=== PATIENT | female | born 1945 | race Caucasian/White ===

== ENCOUNTER 2016-07-26 07:21 | Inpatient (IN) | payer BC ==
--- NOTE | 2016-07-26 07:27 | ER Document Report ---
ED General - General Stated Complaint: DIFFICULTY BREATHING Mode of Arrival: Medic Information source: Patient, Emergency Med Personnel Notes: 62-year-old female smoker history of COPD presents with complaints of shortness of breath over the past one half hours. Patient was found by EMS satting 82% on room air, patient is not on oxygen at home. She was given 3 duo nebs Solu- Medrol on route. Patient notes continued shortness of breath, she is now satting 99% on 2 L nasal cannula with mild respiratory distress TRAVEL OUTSIDE OF THE [place] IN LAST 30 DAYS: No - HPI Onset: Just prior to arrival Onset/Duration: Sudden Quality of pain: No pain Severity: Moderate Pain Level: Denies Associated symptoms: Productive cough, Shortness of breath Exacerbated by: Walking Relieved by: Denies Similar symptoms previously: Yes Recently seen / treated by doctor: Yes - Related Data Allergies/Adverse Reactions: No Known Allergies Allergy (Verified 08/02/13 15:44) Past Medical History - Social History Smoking Status: Current Every Day Smoker Cigarette use (# per day): Yes Chew tobacco use (# tins/day): No Smoking Education Provided: Yes - Patient counselled regarding cessation for 4 minutes Family History: CAD, CVA, DM, Hyperlipidemia, Hypertension, Malignancy, Thyroid Disfunction - Past Medical History Cardiac Medical History: Reports: Hx Hypertension Denies: Hx Coronary Artery Disease, Hx Heart Attack Pulmonary Medical History: Reports: Hx COPD, Hx Pneumonia Denies: Hx Asthma, Hx Bronchitis, Hx Tuberculosis Neurological Medical History: Denies: Hx Cerebrovascular Accident, Hx Seizures Endocrine Medical History: Reports: Hx Diabetes Mellitus Type 2, Hx Hypothyroidism Musculoskeltal Medical History: Reports Hx Arthritis Psychiatric Medical History: Reports: Hx Depression Past Surgical History: Reports: Hx Abdominal Surgery - HERNIA X2, Hx Breast Surgery - lump removal x2, Hx Umbilical Hernia. Denies: Hx Hysterectomy - Immunizations Immunizations up to date: Yes Hx Diphtheria, Pertussis, Tetanus Vaccination: No Hx Pneumococcal Vaccination: 04/03/12 Review of Systems - Review of Systems Notes: REVIEW OF SYSTEMS: CONSTITUTIONAL : Denies fever, chills, or sweats. Denies recent illness. EENT: Denies eye, ear, throat, or mouth pain or symptoms. Denies nasal or sinus congestion or discharge. Denies throat, tongue, or mouth swelling or difficulty swallowing. CARDIOVASCULAR: Denies chest pain. Denies palpitations or racing or irregular heart beat. Denies ankle edema. RESPIRATORY: Admits shortness breath difficulty breathing GASTROINTESTINAL: Denies abdominal pain or distention. Denies nausea, vomiting , or diarrhea. Denies blood in vomitus, stools, or per rectum. Denies black, tarry stools. Denies constipation. GENITOURINARY: Denies difficulty urinating, painful urination, burning, frequency, blood in urine, or discharge. FEMALE GENITOURINARY: Denies vaginal bleeding, heavy or abnormal periods, irregular periods. Denies vaginal discharge or odor. MUSCULOSKELETAL: Denies back or neck pain or stiffness. Denies joint pain or swelling. SKIN: Denies rash, lesions or sores. HEMATOLOGIC : Denies easy bruising or bleeding. LYMPHATIC: Denies swollen, enlarged glands. NEUROLOGICAL: Denies confusion or altered mental status. Denies passing out or loss of consciousness. Denies dizziness or lightheadedness. Denies headache. Denies weakness or paralysis or loss of use of either side. Denies problems with gait or speech. Denies sensory loss, numbness, or tingling. Denies seizures. PSYCHIATRIC: Denies anxiety or stress. Denies depression, suicidal ideation, or homicidal ideation. ALL OTHER SYSTEMS REVIEWED AND NEGATIVE. Dictation was performed using [employer] voice recognition software PHYSICAL EXAMINATION: GENERAL: Well-appearing, well-nourished and in moderate respiratory distress inspiratory retractions intercostal costal retractions HEAD: Atraumatic, normocephalic. EYES: Pupils equal round and reactive to light, extraocular movements intact, conjunctiva are normal. ENT: Nares patent, oropharynx clear without exudates. Moist mucous membranes. NECK: Normal range of motion, supple without lymphadenopathy LUNGS: Decreased breath sounds inspiratory, worse wheezing expiratory moderate respiratory distress HEART: Regular rate and rhythm without murmurs ABDOMEN: Soft, nontender, nondistended abdomen. No guarding, no rebound. No masses appreciated. Female : deferred Musculoskeletal: Normal range of motion, no pitting or edema. No cyanosis. NEUROLOGICAL: Cranial nerves grossly intact. Normal speech, normal gait. Normal sensory, motor exams PSYCH: Normal mood, normal affect. SKIN: Warm, Dry, normal turgor, no rashes or lesions noted. Physical Exam - Vital signs Vitals: Resp Pulse Ox 18 96 07/26/16 07:23 07/26/16 07:23 Course - Re-evaluation Re-evalutation: 07/26/16 07:25 62-year-old female presents in moderate respiratory distress, patient's immediately placed on BiPAP on arrival, she is already received 3 duo nebs however her breathing has not improved significantly, she has never been intubated in the past, I have very low threshold for intubation today 07/26/16 08:53 pt resting well on bipap, paged dr lorenzo 07/26/16 08:56 Patient admitted to primary care physician, no specific source of infection noted - Vital Signs Vital signs: Temp Pulse Resp BP Pulse Ox 16 115/83 96 07/26/16 08:01 07/26/16 08:01 07/26/16 08:01 - Laboratory Result Diagrams: 07/26/16 07:25 07/26/16 07:25 Laboratory results interpreted by me: 07/26/16 07/26/16 07/26/16 07:25 07:25 07:25 MCHC 31.8 L RDW 16.0 H VBG pH Glucose 170 H Lactic Acid 2.7 H AST 50 H 07/26/16 07:39 MCHC RDW VBG pH 7.25 L Glucose Lactic Acid AST - Diagnostic Test Radiology reviewed: Image reviewed, Reports reviewed - copd exacerbation - EKG Interpretation by Me EKG shows normal: Sinus rhythm, [place], Intervals, QRS Complexes [place]/QRS: LA[facility]/LAFB Critical Care Note - Critical Care Note Total time excluding time spent on procedures (mins): 37 Comments: 37 minutes of critical care time spent in direct contact evaluating and reevaluating the patient, treating symptoms, reviewing labs and studies and speaking with family and consultants excluding any procedures Discharge - Discharge Clinical Impression: Chronic obstructive pulmonary disease with acute exacerbation, Hypoxemia Condition: Stable Disposition: ADMITTED INPATIENT Admitting Provider: [facility] Unit Admitted: Telemetry
[2016-07-26 07:47] LABS: ABSOLUTE BASOPHILS # (AUTO) 0.1 10^3/uL (0.0-0.2); ABSOLUTE EOSINOPHILS # (AUTO) 0.5 10^3/uL (0.0-0.6); ABSOLUTE LYMPHOCYTES (AUTO) 1.9 10^3/uL (0.5-4.7); ABSOLUTE MONOCYTES (AUTO) 0.6 10^3/uL (0.1-1.4); ABSOLUTE NEUT (AUTO) 6.6 10^3/uL (1.7-8.2); BASOPHILS % (AUTO) 0.9 % (0-2); EOSINOPHILS % (AUTO) 5.2 % (0-6); LYMPHOCYTES % (AUTO) 19.5 % (13-45); MEAN CORPUSCULAR HGB CONC 31.8 g/dL (32.0-36.0); MEAN CORPUSCULAR VOLUME 85 fl (80-97); MONOCYTES % (AUTO) 5.8 % (3-13); RED BLOOD COUNT 5.17 10^6/uL (3.72-5.28); SEGMENTED NEUTROPHILS % (AUTO) 68.6 % (42-78); WHITE BLOOD COUNT 9.6 10^3/uL (4.0-10.5)
[2016-07-26 07:53] LABS: VENOUS BLOOD HCO3 25.3 mmol/L (20-32); VENOUS BLOOD PCO2 58.9 mmHg (35-63); VENOUS BLOOD PH 7.25 (7.30-7.42)
[2016-07-26 07:53] LABS: PROTHROMBIN TIME 13.1 SEC (11.4-15.4)
[2016-07-26 08:02] LABS: ALBUMIN 3.9 g/dL (3.5-5.0); ALKALINE PHOSPHATASE 86 U/L (38-126); ANION GAP 13 (5-19); ASPARTATE AMINO TRANSFERASE 50 U/L (14-36); BILIRUBIN,TOTAL 0.6 mg/dL (0.2-1.3); BLOOD UREA NITROGEN 13 mg/dL (7-20); CALCIUM 9.5 mg/dL (8.4-10.2); CARBON DIOXIDE 23 mmol/L (22-30); CHLORIDE 106 mmol/L (98-107); CREATININE RESULT 0.76 mg/dL (0.52-1.25); GLUCOSE 170 mg/dL (75-110); POTASSIUM 4.2 mmol/L (3.6-5.0); SODIUM 142.2 mmol/L (137-145)
[2016-07-26] MEDS ORDERED: LEVOFLOXACIN 750 MG/D5W RTU 150 ML IV ONE (08:07)
[2016-07-26] MEDS ORDERED: NORMAL SALINE 1000 ML 1,000 ML IV PRN (08:07)
[2016-07-26 08:26] LABS: ALANINE AMINOTRANSFERASE 47 U/L (9-52)
[2016-07-26] MEDS ORDERED: DEXTROSE 40% GEL 15 GM TUBE PO PRN ×2 (09:02)
[2016-07-26] MEDS ORDERED: GLUCAGON,HUMAN RECOMB 1 MG INJ IM PRN (09:02)
[2016-07-26] MEDS ORDERED: DEXTROSE 50%-WATER 25 GM/50 ML DISP.SYRIN IV PRN ×2 (09:02)
[2016-07-26 09:44] LABS: CREATINE KINASE MB 3.8 ng/mL (<4.55)
[2016-07-26 09:53] LABS: TROPONIN I 0.363 ng/mL
[2016-07-26 11:04] LABS: APPEARANCE,URINE CLEAR; BILIRUBIN,URINE NEGATIVE (NEGATIVE); GLUCOSE, URINE NEGATIVE (NEGATIVE); KETONES,URINE NEGATIVE (NEGATIVE); LEUKOCYTE ESTERASE,URINE NEGATIVE (NEGATIVE); NITRITE,URINE NEGATIVE (NEGATIVE); PROTEIN,URINE 30 mg/dL (NEGATIVE); URINE SPECIFIC GRAVITY 1.012; UROBILINOGEN,URINE NEGATIVE mg/dL (<2.0)
[2016-07-26] MEDS ORDERED: CEFEPIME HCL 2 GM in DEXTROSE 5%-WATER 50 ML IV ONE ×2 (11:45→15:30)
[2016-07-26] MEDS: NICOTINE 21 MG/24 HR PATCH.TD24 TD SCH (15:39)
--- NOTE | 2016-07-26 15:50 | EKG REPORT ---
SEVERITY:- ABNORMAL ECG - SINUS ARRHYTHMIA, RATE 70-106 LAD, CONSIDER LAFB OR INFERIOR INFARCT ANTERIOR INFARCT, AGE INDETERMINATE : Confirmed by: Yaz Sanders 26-Jul-2016 15:49:10
--- NOTE | 2016-07-26 15:50 | EKG REPORT ---
SEVERITY:- ABNORMAL ECG - SINUS RHYTHM VENTRICULAR PREMATURE COMPLEX PROBABLE INFERIOR INFARCT, AGE INDETERMINATE ANTERIOR INFARCT, AGE INDETERMINATE BORDERLINE PROLONGED QT INTERVAL : Confirmed by: Yaz Sanders 26-Jul-2016 15:49:06
[2016-07-26] MEDS ORDERED: INFLUENZA ADLT QUAD (36MOS+) 2016-17 VAC 0.5 ML SYR IM PRN (16:32)
[2016-07-26] MEDS: IPRATROPIUM/ALBUTEROL 0.5-2.5 MG/3 ML AMPUL NEB PRN ×2 (16:39→20:10)
[2016-07-26] MEDS: OXYCODONE HCL IR 5 MG TABLET PO PRN (16:58)
[2016-07-26] MEDS ORDERED: LEVOTHYROXINE SODIUM 0.075 MG TABLET PO ONE (17:00)
[2016-07-26] MEDS: INSULIN LISPRO 100 UNIT/ML 3 ML VIAL SUBCUT PRN ×2 (17:27→23:01)
[2016-07-26 19:25] LABS: CREATINE KINASE MB 8.99 ng/mL (<4.55)
[2016-07-26 19:36] LABS: TROPONIN I 1.15 ng/mL
[2016-07-26] MEDS ORDERED: (PENDING PHARMACY ID) (Tiotropium Bromide [Spiriva Respimat] 1 PUFF) PO PRN (20:59)
[2016-07-26] MEDS ORDERED: NICOTINE 21 MG/24 HR PATCH.TD24 TD SCH (21:00)
[2016-07-26] MEDS ORDERED: RIFAXIMIN 200 MG TABLET PO SCH (21:00)
[2016-07-26] MEDS ORDERED: METOPROLOL SUCCINATE 50 MG TAB.SR.24H PO SCH (21:00)
[2016-07-26] MEDS ORDERED: (PENDING PHARMACY ID) (Losartan/Hydrochlorothiazide [Hyzaar 100-25 Tablet] 1 EACH) PO SCH (21:00)
[2016-07-26] MEDS ORDERED: OXYCODONE HCL IR 5 MG TABLET PO PRN (21:14)
[2016-07-26] MEDS ORDERED: LEVOTHYROXINE SODIUM 0.1 MG TABLET PO ONE (22:00)
[2016-07-26] MEDS ORDERED: CEFEPIME 2 GM/D5W RTU 2 GM/50 ML RTUPB IV SCH (22:00)
[2016-07-26] MEDS ORDERED: LOSARTAN POTASSIUM 50 MG TABLET PO ONE (22:00)
[2016-07-26] MEDS ORDERED: HYDROCHLOROTHIAZIDE 25 MG TABLET PO ONE (22:00)
[2016-07-26 22:24] LABS: ABSOLUTE LYMPHOCYTES (AUTO) 0.6 10^3/uL (0.5-4.7); ABSOLUTE MONOCYTES (AUTO) 0.4 10^3/uL (0.1-1.4); ABSOLUTE NEUT (AUTO) 11.2 10^3/uL (1.7-8.2); BASOPHILS % (AUTO) 0.3 % (0-2); HEMATOCRIT 38.9 % (36.0-47.0); HEMOGLOBIN 12.5 g/dL (12.0-15.5); HGB HCT DIFFERENCE -1.4; LYMPHOCYTES % (AUTO) 5.1 % (13-45); MEAN CORPUSCULAR HEMOGLOBIN 27.1 pg (27.0-33.4); MEAN CORPUSCULAR HGB CONC 32.1 g/dL (32.0-36.0); MEAN CORPUSCULAR VOLUME 84 fl (80-97); PROTHROMBIN TIME 13.6 SEC (11.4-15.4); RED BLOOD COUNT 4.62 10^6/uL (3.72-5.28); RED CELL DISTRIBUTION WIDTH 16.2 % (11.5-14.0); SEGMENTED NEUTROPHILS % (AUTO) 91.6 % (42-78); WHITE BLOOD COUNT 12.2 10^3/uL (4.0-10.5)
[2016-07-26 22:25] LABS: PARTIAL THROMBOPLASTIN TIME 26.9 SEC (23.5-35.8)
[2016-07-26] MEDS ORDERED: NICOTINE 21 MG/24 HR PATCH.TD24 TD ONE (22:30)
[2016-07-26] MEDS ORDERED: DULOXETINE HCL 30 MG CAPSULE.DR PO ONE (22:30)
[2016-07-26] MEDS ORDERED: METOPROLOL SUCCINATE 50 MG TAB.SR.24H PO ONE (22:30)
[2016-07-26] MEDS ORDERED: LANSOPRAZOLE 30 MG TAB.RAP.DR PO ONE (22:30)
[2016-07-26] MEDS ORDERED: ALBUTEROL SULFATE HFA (90 MCG/PUFF) 200 PUFF/8.5 GM MDI IH PRN (22:45)
[2016-07-26] MEDS ORDERED: METFORMIN HCL 500 MG TABLET PO ONE (23:00)
[2016-07-26] MEDS: CEFEPIME HCL 2 GM in DEXTROSE 5%-WATER 50 ML IV SCH (23:03)
[2016-07-26] MEDS: RIFAXIMIN 550 MG TABLET PO SCH (23:04)
--- NOTE | 2016-07-26 23:57 | EKG REPORT ---
SEVERITY:- ABNORMAL ECG - SINUS TACHYCARDIA FIRST DEGREE AV BLOCK LEFT ANTERIOR FASCICULAR BLOCK ANTERIOR INFARCT, AGE INDETERMINATE DIFFUSE T WAVE INVERSION : Confirmed by: Yaz Sanders 26-Jul-2016 23:56:25
[2016-07-27] MEDS: HEPARIN SOD (PORCINE) 1,000 UNIT/ML 10 ML VIAL IV PRN ×2 (00:02→11:58)
[2016-07-27] MEDS: HEPARIN SODIUM,PORCINE/D5W 250 ML IV PRN ×2 (00:05→20:45)
[2016-07-27 03:12] LABS: ABSOLUTE BASOPHILS # (AUTO) 0.1 10^3/uL (0.0-0.2); ABSOLUTE LYMPHOCYTES (AUTO) 1.3 10^3/uL (0.5-4.7); BASOPHILS % (AUTO) 0.5 % (0-2); EOSINOPHILS % (AUTO) 0.1 % (0-6); HEMATOCRIT 37.7 % (36.0-47.0); HEMOGLOBIN 11.9 g/dL (12.0-15.5); LYMPHOCYTES % (AUTO) 7.7 % (13-45); MEAN CORPUSCULAR HEMOGLOBIN 26.6 pg (27.0-33.4); MEAN CORPUSCULAR HGB CONC 31.7 g/dL (32.0-36.0); MEAN CORPUSCULAR VOLUME 84 fl (80-97); MONOCYTES % (AUTO) 6.1 % (3-13); RED BLOOD COUNT 4.48 10^6/uL (3.72-5.28); SEGMENTED NEUTROPHILS % (AUTO) 85.6 % (42-78); WHITE BLOOD COUNT 16.3 10^3/uL (4.0-10.5)
[2016-07-27 03:20] LABS: ANION GAP 9 (5-19); BLOOD UREA NITROGEN 21 mg/dL (7-20); CALCIUM 9.5 mg/dL (8.4-10.2); CARBON DIOXIDE 26 mmol/L (22-30); CHLORIDE 107 mmol/L (98-107); CREATININE RESULT 0.71 mg/dL (0.52-1.25); GLUCOSE 149 mg/dL (75-110); POTASSIUM 4.1 mmol/L (3.6-5.0); SODIUM 142.1 mmol/L (137-145)
[2016-07-27 03:32] LABS: CREATINE KINASE MB 10.2 ng/mL (<4.55); TROPONIN I 1.2 ng/mL
[2016-07-27] MEDS: IPRATROPIUM/ALBUTEROL 0.5-2.5 MG/3 ML AMPUL NEB PRN ×4 (05:42→22:21)
[2016-07-27] MEDS: LEVOTHYROXINE SODIUM 0.1 MG TABLET PO SCH (06:19)
[2016-07-27] MEDS: LANSOPRAZOLE 30 MG TAB.RAP.DR PO SCH (06:19)
[2016-07-27] MEDS ORDERED: ENOXAPARIN SODIUM INJ 40 MG/0.4 ML DISP.SYRIN SUBCUT SCH (08:00)
[2016-07-27] MEDS: GLIMEPIRIDE 4 MG TABLET PO SCH (08:21)
[2016-07-27] MEDS: METFORMIN HCL 500 MG TABLET PO SCH ×2 (08:21→17:55)
[2016-07-27] MEDS: LEVOFLOXACIN 500 MG/D5W RTU 500 MG/100 ML RTUPB IV SCH (08:22)
[2016-07-27] MEDS: OXYCODONE HCL IR 5 MG TABLET PO PRN (08:30)
[2016-07-27] MEDS ORDERED: NICOTINE 21 MG/24 HR PATCH.TD24 TD SCH (10:00)
[2016-07-27] MEDS ORDERED: LEVOTHYROXINE SODIUM 0.075 MG TABLET PO SCH (10:00)
[2016-07-27] MEDS ORDERED: OXYCODONE HCL IR 5 MG TABLET PO PRN (10:14)
[2016-07-27 10:50] LABS: CREATINE KINASE MB 10.3 ng/mL (<4.55)
[2016-07-27] MEDS: DULOXETINE HCL 30 MG CAPSULE.DR PO SCH (10:54)
[2016-07-27] MEDS: LOSARTAN POTASSIUM 50 MG TABLET PO SCH (10:54)
[2016-07-27] MEDS: HYDROCHLOROTHIAZIDE 25 MG TABLET PO SCH (10:54)
[2016-07-27] MEDS: METOPROLOL SUCCINATE 50 MG TAB.SR.24H PO SCH (10:55)
[2016-07-27] MEDS: CEFEPIME HCL 2 GM in DEXTROSE 5%-WATER 50 ML IV SCH ×2 (10:58→22:22)
[2016-07-27] MEDS: RIFAXIMIN 550 MG TABLET PO SCH ×2 (10:58→22:22)
--- NOTE | 2016-07-27 11:50 | XCELERA REPORT ---
[address] [address] Transthoracic Echocardiogram Report Name: BAIRON FU Age: 70 yrs Gender: Female : 1945 Patient Status: Inpatient Patient Location: [id number]\B Study Date: 07/27/2016 10:49 AM Height: 64 in Weight: 168 lb BSA: 1.8 m2 Procedure: A complete two-dimensional transthoracic echocardiogram was performed (2D, M-mode, spectral and color flow Doppler). The study was technically adequate with some images being suboptimal in quality. Reason For Study: elevated troponin Ordering Physician: ROWENA CLEANING Performed By: Flor Chamberlain Interpretation Summary LV EF is 35% Doppler measurements suggest pseudonormalized left ventricular relaxation, which is associated with grade II/IV or mild to moderate diastolic dysfunction There is mild concentric left ventricular hypertrophy. The left ventricle is grossly normal size. There is mid to distal anterior wall akinesis There is apical wall akinesis The right ventricle is grossly normal size. The right ventricular systolic function is normal. The left atrium is mildly dilated. The right atrium is normal in size There is a mild amount of mitral regurgitation There is no mitral valve stenosis. No aortic regurgitation is present. There is no aortic valve stenosis There is a trace to mild amount of tricuspid regurgitation There is mild pulmonary hypertension by echo Right ventricular systolic pressure is estimated to be elevated at 30- 40mmHg. There is no pericardial effusion. MMode/2D Measurements \T\ Calculations RVDd: 2.9 cm LVIDd: 4.4 cm FS: 17.3 % Ao root diam: IVSd: 1.4 cm LVIDs: 3.6 cm EDV(Teich): 2.9 cm LVPWd: 1.3 cm 86.0 ml Ao root area: ESV(Teich): 54.7 ml 6.4 cm2 EF(Teich): 36.4 %LA dimension: 4.0 cm LVLd ap4: 6.6 cm SV(MOD-sp4): EDV(MOD-sp4): 21.0 ml 57.0 ml LVLs ap4: 6.4 cm ESV(MOD-sp4): 36.0 ml EF(MOD-sp4): 36.8 % Doppler Measurements \T\ Calculations MV E max lily: MV P1/2t max lily: Ao V2 max: LV V1 max P.0 cm/sec 78.5 cm/sec 100.4 cm/sec 3.3 mmHg MV A max lily: MV P1/2t: 70.4 msec Ao max PG: LV V1 max: 76.5 cm/sec MVA(P1/2t): 3.1 cm2 4.0 mmHg 91.3 cm/sec MV E/A: 1.0 MV dec slope: 326.4 cm/sec2 MV dec time: 0.23 sec PA V2 max: TR max lily: 64.7 cm/sec 215.0 cm/sec PA max PG: TR max P.5 mmHg 1.7 mmHg Left Ventricle The left ventricle is grossly normal size. There is mild concentric left ventricular hypertrophy. LV EF is 35%. Doppler measurements suggest pseudonormalized left ventricular relaxation, which is associated with grade II/IV or mild to moderate diastolic dysfunction. There is mid to distal anterior wall akinesis. There is apical wall akinesis. Right Ventricle The right ventricle is grossly normal size. There is normal right ventricular wall thickness. The right ventricular systolic function is normal. Atria The right atrium is normal in size. The left atrium is mildly dilated. Interarterial septum not well visualized and not well dopplered. Cannot comment on ASD/PFO presence. Mitral Valve There is mild to moderate mitral annular calcification. There is no mitral valve stenosis. There is a mild amount of mitral regurgitation. Aortic Valve The aortic valve is grossly normal. There is no aortic valve stenosis. No aortic regurgitation is present. Tricuspid Valve The tricuspid valve is not well visualized, but is grossly normal. There is no tricuspid stenosis. There is a trace to mild amount of tricuspid regurgitation. There is mild pulmonary hypertension by echo. Right ventricular systolic pressure is estimated to be elevated at 30-40mmHg. Pulmonic Valve The pulmonic valve is not well visualized. Great Vessels The aortic root is not well visualized but is probably normal size. The inferior vena cava appeared normal and decreased < 50% with respiration (RAP 10-15 mmHg). Effusions There is no pericardial effusion. : ROWENA CLEANING > Yaz Sanders
[2016-07-27] MEDS: NICOTINE 21 MG/24 HR PATCH.TD24 TD SCH (15:02)
[2016-07-27] MEDS ORDERED: ONDANSETRON 4 MG TAB.RAPDIS PO PRN (15:46)
--- NOTE | 2016-07-27 18:49 | PDOC H&P ---
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 In the emergency room she was evaluated and admission was advised. The initial impression was that she probably have COPD versus pneumonia. The 12-lead EKG that was done showed sinus rhythm with Q waves in V1 to V3, Q wave in lead 2 and aVF. EKG findings suggest old myocardial infarction. CT chest was done without contrast and it showed hyperinflated upper lobes and hyperlucent, COPD, there was no pulmonary edema or pneumonia present. On admission on the initial troponin was 0.30 subsequent troponin was 1 suggesting that she probably had ST elevated AK and because of this, she was started on IV heparin Past Medical History Cardiac Medical History: Reports: Atrial Fibrillation, Hyperlipidema, Hypertension Pulmonary Medical History: Reports: Chronic Obstructive Pulmonary Disease (COPD) , Pneumonia Endocrine Medical History: Reports: Diabetes Mellitus Type 2, Hypothyroidism GI Medical History: Reports: Other - well compensated liver cirrhosis Musculoskeltal Medical History: Reports: Arthritis Psychiatric Medical History: Reports: Depression Social History Smoking Status: Current Every Day Smoker Cigarettes Packs Per Day: 1 Number of Years Smokin Last Time Smoked: today Frequency of Alcohol Use: None Hx Recreational Drug Use: No Drugs: None Hx Prescription Drug Abuse: No - Advance Directive Resuscitation Status: Full Code Family History Family History: CAD, CVA, DM, Hyperlipidemia, Hypertension, Malignancy, Thyroid Disfunction Parental Family History Reviewed: Yes Children Family History Reviewed: Yes Sibling(s) Family History Reviewed.: Yes Medication/Allergy Home Medications: Albuterol Sulfate [Proair HFA] 2 inh PO Q4HP PRN 07/26/16 Butalb/Acetaminophen/Caffeine [Fioricet 50-300-40 mg Capsule] 1 cap PO Q6HP PRN 07/26/16 Dexlansoprazole [Dexilant 60 mg Capsule] 60 mg PO DAILY 07/26/16 Duloxetine HCl [Cymbalta] 60 mg PO DAILY 07/26/16 Fluticasone/Salmeterol [Advair 250-50 Diskus 28 dose] 1 inh PO DAILY 07/26/16 Glimepiride [Amaryl 4 mg Tablet] 4 mg PO QAM 07/26/16 Insulin Aspart [Novolog Flexpen] 5 units SQ TID 07/26/16 Levothyroxine Sodium 25 mcg PO DAILY 07/26/16 Levothyroxine Sodium [Synthroid] 200 mcg PO DAILY 07/26/16 Losartan/Hydrochlorothiazide [Hyzaar 100-25 Tablet] 1 each PO DAILY 07/26/16 Metformin HCl [Glucophage] 1,000 mg PO BID 07/26/16 Metoprolol Succinate 50 mg PO DAILY 07/26/16 Nicotine [Nicoderm 21 mg/24 Hr Transderm Patch] 21 mg TD DAILY 07/26/16 Oxycodone HCl [Oxycodone HCl 10 MG Tablet] 10 mg PO QIDP PRN 07/26/16 Rifaximin [Xifaxan] 550 mg PO BID 07/26/16 Roflumilast [Daliresp 500 mcg Tablet] 500 mcg PO DAILY 07/26/16 Tiotropium [place] [Spiriva Respimat] 1 puff PO ASDIR PRN 07/26/16 Zolpidem Tartrate 5 mg PO QHS 07/26/16 Allergies/Adverse Reactions: No Known Allergies Allergy (Verified 08/02/13 15:44) Review of Systems Constitutional: PRESENT: fatigue Ears: ABSENT: hearing changes Cardiovascular: PRESENT: chest pain, dyspnea on exertion Respiratory: PRESENT: cough Gastrointestinal: PRESENT: abdominal pain Genitourinary: ABSENT: as per HPI, difficulty urinating, dysuria, hematuria, nocturia, other Musculoskeletal: ABSENT: joint swelling Integumentary: ABSENT: rash, wounds Neurological: ABSENT: abnormal gait, abnormal speech, confusion, dizziness, focal weakness, syncope Psychiatric: ABSENT: anxiety, depression, homidical ideation, suicidal ideation Endocrine: ABSENT: cold intolerance, heat intolerance, menstrual abnormalities, polydipsia, polyuria Hematologic/Lymphatic: ABSENT: easy bleeding, easy bruising, lymphadenopathy Physical Exam Vital Signs: Temp Pulse Resp BP Pulse Ox 97.9 F 66 24 H 116/64 100 07/27/16 15:49 07/27/16 15:49 07/27/16 15:49 07/27/16 15:49 07/27/16 15:49 Intake & Output 07/26/16 07/27/16 07/28/16 06:59 06:59 06:59 Intake Total 800 658 Balance 800 658 Weight 79.1 kg General appearance: PRESENT: no acute distress, well-developed, well-nourished Head exam: PRESENT: atraumatic, normocephalic Eye exam: PRESENT: conjunctiva pink, EOMI, PERRLA Ear exam: PRESENT: normal external ear exam Neck exam: PRESENT: full ROM Respiratory exam: PRESENT: rhonchi, wheezes Cardiovascular exam: PRESENT: RRR, +S1, +S2 Pulses: PRESENT: normal dorsalis pedis pul, +2 pedal pulses bilateral Vascular exam: PRESENT: normal capillary refill GI/Abdominal exam: PRESENT: normal bowel sounds, soft Rectal exam: PRESENT: deferred Neurological exam: PRESENT: alert, awake, oriented to person, oriented to place , oriented to time, oriented to situation, CN II-XII grossly intact. ABSENT: motor sensory deficit Psychiatric exam: PRESENT: appropriate affect, normal mood Skin exam: PRESENT: dry, intact, warm Results Laboratory Results: 07/27/16 03:00 07/27/16 03:00 07/26/16 07/27/16 07/27/16 21:52 03:00 03:00 WBC 12.2 H 16.3 H RBC 4.62 4.48 Hgb 12.5 11.9 L Hct 38.9 37.7 MCV 84 84 MCH 27.1 26.6 L MCHC 32.1 31.7 L RDW 16.2 H 16.0 H Plt Count 207 198 Seg Neutrophils % 91.6 H 85.6 H Lymphocytes % 5.1 L 7.7 L Monocytes % 3.0 6.1 Eosinophils % 0.0 0.1 Basophils % 0.3 0.5 Absolute Neutrophils 11.2 H 14.0 H Absolute Lymphocytes 0.6 1.3 Absolute Monocytes 0.4 1.0 Absolute Eosinophils 0.0 0.0 Absolute Basophils 0.0 0.1 Sodium 142.1 Potassium 4.1 Chloride 107 Carbon Dioxide 26 Anion Gap 9 BUN 21 H Creatinine 0.71 Est GFR ( Amer) > 60 Est GFR (Non-Af Amer) > 60 Glucose 149 H Calcium 9.5 07/26/16 10:35 Clean Catch Midstream Urine Culture - Final Urogenital Michelle Lactobacillus (Vaginal Michelle) 07/26/16 07/26/16 07/27/16 18:50 18:50 03:00 Creatine Kinase 829 H 586 H CK-MB (CK-2) 8.99 H Troponin I 1.150 07/27/16 07/27/16 07/27/16 03:00 09:56 09:56 Creatine Kinase 412 H CK-MB (CK-2) 10.20 H 10.30 H Troponin I 1.200 1.000 Impressions: Chest CT 07/26/16 00:00 IMPRESSION: Obstructive lung disease. No acute changes. Chest X-Ray 07/26/16 07:23 IMPRESSION: Fluid overload or congestive failure superimposed on obstructive lung disease Esophagus X-Ray 07/27/16 08:00 IMPRESSION: Tiny hiatal hernia. No distal esophageal stricture. No gastroesophageal reflux. Assessment & Plan - Diagnosis (1) Acute myocardial infarction Qualifiers: Myocardial infarction ST status: ST elevation myocardial infarction Involved coronary artery: unspecified coronary artery Qualified Code(s): I21.3 - ST elevation (STEMI) myocardial infarction of unspecified site Is this a current diagnosis for this admission?: YesPlan: She probably had ST elevated myocardial infarction, but she is already Q , so this late she be started on IV heparin , 2-D echo will be ordered. Continue beta esmer,aspirin,ACEI statin (2) Pneumonia Qualifiers: Pneumonia type: due to unspecified organism Laterality: unspecified laterality Lung location: unspecified part of lung Qualified Code(s) : J18.9 - Pneumonia, unspecified organism Is this a current diagnosis for this admission?: Yes
[2016-07-27] MEDS ORDERED: ATORVASTATIN CALCIUM 80 MG TABLET PO ONE (19:20)
[2016-07-27] MEDS ORDERED: ASPIRIN 325 MG TABLET PO ONE (19:21)
--- NOTE | 2016-07-27 20:16 | PDOC TRANSFER SUMMARY ---
General Admission Date/PCP: 07/26/16 08:59 [employer], Admission Date: 07/26/16 Transfer Date: 07/27/16 Accepting Facility: [facility] Resuscitation Status: Full Code - Transfer Diagnosis (1) ST elevation (STEMI) myocardial infarction Is this a current diagnosis for this admission?: Yes (2) COPD (chronic obstructive pulmonary disease) Is this a current diagnosis for this admission?: Yes - Transfer Medications Home Medications: Albuterol Sulfate [Proair HFA] 2 inh PO Q4HP PRN 07/26/16 Butalb/Acetaminophen/Caffeine [Fioricet 50-300-40 mg Capsule] 1 cap PO Q6HP PRN 07/26/16 Dexlansoprazole [Dexilant 60 mg Capsule] 60 mg PO DAILY 07/26/16 Duloxetine HCl [Cymbalta] 60 mg PO DAILY 07/26/16 Fluticasone/Salmeterol [Advair 250-50 Diskus 28 dose] 1 inh PO DAILY 07/26/16 Glimepiride [Amaryl 4 mg Tablet] 4 mg PO QAM 07/26/16 Insulin Aspart [Novolog Flexpen] 5 units SQ TID 07/26/16 Levothyroxine Sodium 25 mcg PO DAILY 07/26/16 Levothyroxine Sodium [Synthroid] 200 mcg PO DAILY 07/26/16 Losartan/Hydrochlorothiazide [Hyzaar 100-25 Tablet] 1 each PO DAILY 07/26/16 Metformin HCl [Glucophage] 1,000 mg PO BID 07/26/16 Metoprolol Succinate 50 mg PO DAILY 07/26/16 Nicotine [Nicoderm 21 mg/24 Hr Transderm Patch] 21 mg TD DAILY 07/26/16 Oxycodone HCl [Oxycodone HCl 10 MG Tablet] 10 mg PO QIDP PRN 07/26/16 Rifaximin [Xifaxan] 550 mg PO BID 07/26/16 Roflumilast [Daliresp 500 mcg Tablet] 500 mcg PO DAILY 07/26/16 Tiotropium [place] [Spiriva Respimat] 1 puff PO ASDIR PRN 07/26/16 Zolpidem Tartrate 5 mg PO QHS 07/26/16 Transfer Medications: Current Medications Albuterol (Proair Hfa Inhalation Aerosol 8.5 Gm Mdi) 2 puff IH Q4HP PRN PRN Reason: SHORTNESS OF BREATH Stop: 08/25/16 22:44 Albuterol/Ipratropium (Duoneb 3 Ml Ampul) 3 ml NEB RTQ3HP PRN PRN Reason: SHORTNESS OF BREATH/WHEEZING Stop: 08/25/16 08:58 Last Admin: 07/27/16 17:40 Dose: 3 ml Dextrose (Dextrose Inj 50% Syringe (25 Gm/50 Ml)) 12.5 gm IV PRN PRN; Protocol PRN Reason: FOR BG 50-69 IN ALERT PATIENT Stop: 08/25/16 09:01 Dextrose (Dextrose Inj 50% Syringe (25 Gm/50 Ml)) 25 gm IV PRN PRN PRN Reason: Protocol Stop: 08/25/16 09:01 Duloxetine HCl (Cymbalta 30 Mg Capsule.Dr) 60 mg PO DAILY [facility] Stop: 08/26/16 09:59 Last Admin: 07/27/16 10:54 Dose: 60 mg Glimepiride (Amaryl 4 Mg Tablet) 4 mg PO QAM [facility] Stop: 08/26/16 07:59 Last Admin: 07/27/16 08:21 Dose: 4 mg Glucagon (Glucagen Inj 1 Mg Vial) 1 mg IM PRN PRN; Protocol PRN Reason: Evaluate for BG < 70 Stop: 08/25/16 09:01 Glucose (Glutose 40% Gel 15 Gm Tube) 15 gm PO PRN PRN; Protocol PRN Reason: FOR BG 50-69 IN ALERT PATIENT Stop: 08/25/16 09:01 Glucose (Glutose 40% Gel 15 Gm Tube) 30 gm PO PRN PRN; Protocol PRN Reason: FOR BG < 50 IN ALERT PATIENT Stop: 08/25/16 09:01 Heparin Sodium (Porcine) (Heparin Inj 1,000 Unit/Ml 10 Ml Vial) 0 - 12,000 unit IV .BOLUS PER PROTOCOL PRN; Protocol PRN Reason: RESPOND TO aPTT VALUE Stop: 08/25/16 21:01 Last Admin: 07/27/16 11:58 Dose: 4,000 unit Hydrochlorothiazide (Hydrodiuril 25 Mg Tablet) 25 mg PO DAILY [facility] Stop: 08/26/16 09:59 Last Admin: 07/27/16 10:54 Dose: 25 mg Levofloxacin/Dextrose (Levaquin Rtu 500mg/D5w 100 Ml Premix) 500 mg in 100 mls @ 100 mls/hr IV QAM [facility] Stop: 08/03/16 07:59 Last Admin: 07/27/16 08:22 Dose: 100 ml Cefepime HCl 2 gm/ Dextrose 50 mls @ 100 mls/hr IV Q12 [facility] Stop: 08/02/16 21:59 Last Admin: 07/27/16 10:58 Dose: 2 gm Heparin Sodium/Dextrose (Heparin Rtu 25,000 Unit/250 Ml D5w Premix) 250 mls @ 0 mls/hr IV CONTINUOUS PRN; Protocol; Titrate PRN Reason: THIS MED IS NOT "PRN" Stop: 08/25/16 21:01 Last Admin: 07/27/16 00:05 Dose: 250 ml Influenza Virus Vaccine Quadrival (Fluzone Adlt Quad [id number] Vac 0.5 Ml Syr) 0.5 ml IM .AT DISCHARGE PRN PRN Reason: THIS MED IS NOT "PRN" Stop: 08/25/16 16:31 Insulin Human Lispro (Humalog Insulin 100 Unit/1 Ml 3 Ml Vial) 0 - 12 unit SUBCUT ACHSP PRN PRN Reason: Protocol Stop: 08/25/16 09:01 Last Admin: 07/26/16 23:01 Dose: 2 unit Lansoprazole (Prevacid 30 Mg Odt Tablet) 30 mg PO Q6AM [facility] Stop: 08/26/16 05:59 Last Admin: 07/27/16 06:19 Dose: 30 mg Levothyroxine Sodium (Synthroid 0.1 Mg Tablet) 0.2 mg PO Q6AM [facility] Stop: 08/26/16 05:59 Last Admin: 07/27/16 06:19 Dose: 0.2 mg Losartan Potassium (Cozaar 50 Mg Tablet) 100 mg PO DAILY [facility] Stop: 08/26/16 09:59 Last Admin: 07/27/16 10:54 Dose: 100 mg Metformin HCl (Glucophage 500 Mg Tablet) 1,000 mg PO BIDBS [facility] Stop: 08/26/16 07:59 Last Admin: 07/27/16 17:55 Dose: Not Given Metoprolol Succinate (Toprol Xl 50 Mg Tab.Sr) 50 mg PO DAILY [facility] Stop: 08/26/16 09:59 Last Admin: 07/27/16 10:55 Dose: 50 mg Nicotine (Nicoderm 21 Mg/24 Hr Transderm Patch) 1 each TD DAILY@1500 [facility] Stop: 08/25/16 14:59 Last Admin: 07/27/16 15:02 Dose: 1 each Ondansetron HCl (Zofran Odt 4 Mg Tablet) 4 mg PO Q4HP PRN PRN Reason: FOR NAUSEA Stop: 08/26/16 15:45 Last Admin: 07/27/16 16:24 Dose: 4 mg Oxycodone HCl (Oxy-Ir 5 Mg Tablet) 10 mg PO QIDP PRN PRN Reason: PAIN SCALE OF 1 Stop: 08/02/16 21:13 Last Admin: 07/27/16 10:57 Dose: 10 mg Patient Own Medication (Tiotropium [place] [Spiriva Respimat]) 1 puff PO ASDIR PRN Rifaximin (Xifaxan 550 Mg Tablet) 550 mg PO Q12 [facility] Stop: 08/02/16 21:59 Last Admin: 07/27/16 10:58 Dose: 550 mg Sodium Chloride (Saline Flush 2.5 Ml Monoject Prefil Syrin) 2.5 ml IV Q8 [facility] Stop: 08/25/16 13:59 Last Admin: 07/27/16 14:54 Dose: Not Given - Allergies Allergies/Adverse Reactions: No Known Allergies Allergy (Verified 08/02/13 15:44) Hospital Course Hospital Course: Patient was admitted yesterday when she presented with respiratory symptoms including shortness of breath and chest tightness. Initially it was felt that she may have acute COPD exacerbation, that was hypoxemia because the oxygen saturation was in the low 80s on pulse oximetry. Subsequent evaluation suggest she probably had ST elevated MA. The initial troponin was 0.3 and it peaked at 1.2. The 12-lead EKG showed Q-wave in precordial leads V1 through V3 and T- wave in inferior leads,111 aVF. She is probably presenting the late phase of acute ST elevated MA. She was started on IV heparin and she is on beta esmer , atorvastatin, aspirin. A 2-D echo was done it showed EF 35%. There is anterior wall akinesis with apical wall akinesis. The plan is to transfer patient to tertiary care for cardiac catheterization Physical Exam Vital Signs: Temp Pulse Resp BP Pulse Ox 98.4 F 56 L 18 96/62 L 100 07/27/16 19:42 07/27/16 19:42 07/27/16 19:42 07/27/16 19:42 07/27/16 19:42 Intake & Output 07/26/16 07/27/16 07/28/16 06:59 06:59 06:59 Intake Total 800 1360 Output Total 450 Balance 800 910 Weight 79.1 kg General appearance: PRESENT: no acute distress Respiratory exam: PRESENT: rales Cardiovascular exam: PRESENT: +S1, +S2 GI/Abdominal exam: PRESENT: soft Neurological exam: PRESENT: alert, CN II-XII grossly intact Results Laboratory Results: 07/27/16 03:00 07/27/16 03:00 07/26/16 07/27/16 07/27/16 21:52 03:00 03:00 WBC 12.2 H 16.3 H RBC 4.62 4.48 Hgb 12.5 11.9 L Hct 38.9 37.7 MCV 84 84 MCH 27.1 26.6 L MCHC 32.1 31.7 L RDW 16.2 H 16.0 H Plt Count 207 198 Seg Neutrophils % 91.6 H 85.6 H Lymphocytes % 5.1 L 7.7 L Monocytes % 3.0 6.1 Eosinophils % 0.0 0.1 Basophils % 0.3 0.5 Absolute Neutrophils 11.2 H 14.0 H Absolute Lymphocytes 0.6 1.3 Absolute Monocytes 0.4 1.0 Absolute Eosinophils 0.0 0.0 Absolute Basophils 0.0 0.1 Sodium 142.1 Potassium 4.1 Chloride 107 Carbon Dioxide 26 Anion Gap 9 BUN 21 H Creatinine 0.71 Est GFR ( Amer) > 60 Est GFR (Non-Af Amer) > 60 Glucose 149 H Calcium 9.5 07/26/16 10:35 Clean Catch Midstream Urine Culture - Final Urogenital Michelle Lactobacillus (Vaginal Michelle) 07/26/16 07/26/16 07/27/16 18:50 18:50 03:00 Creatine Kinase 829 H 586 H CK-MB (CK-2) 8.99 H Troponin I 1.150 NT-Pro-B Natriuret Pep 07/27/16 07/27/16 07/27/16 03:00 09:56 09:56 Creatine Kinase 412 H CK-MB (CK-2) 10.20 H 10.30 H Troponin I 1.200 1.000 NT-Pro-B Natriuret Pep 07/27/16 09:56 Creatine Kinase CK-MB (CK-2) Troponin I NT-Pro-B Natriuret Pep 4670 H Impressions: Chest CT 07/26/16 00:00 IMPRESSION: Obstructive lung disease. No acute changes. Chest X-Ray 07/26/16 07:23 IMPRESSION: Fluid overload or congestive failure superimposed on obstructive lung disease Esophagus X-Ray 07/27/16 08:00 IMPRESSION: Tiny hiatal hernia. No distal esophageal stricture. No gastroesophageal reflux.
[2016-07-27] MEDS: ATORVASTATIN CALCIUM 80 MG TABLET PO SCH (22:16)
[2016-07-28] MEDS: LEVOTHYROXINE SODIUM 0.1 MG TABLET PO SCH (05:43)
[2016-07-28] MEDS: LANSOPRAZOLE 30 MG TAB.RAP.DR PO SCH (05:43)
[2016-07-28] MEDS: IPRATROPIUM/ALBUTEROL 0.5-2.5 MG/3 ML AMPUL NEB PRN ×3 (06:36→21:00)
[2016-07-28 06:38] LABS: HEMATOCRIT 36.5 % (36.0-47.0); HEMOGLOBIN 11.6 g/dL (12.0-15.5); HGB HCT DIFFERENCE -1.7; MEAN CORPUSCULAR HEMOGLOBIN 27.1 pg (27.0-33.4); MEAN CORPUSCULAR HGB CONC 31.9 g/dL (32.0-36.0); MEAN CORPUSCULAR VOLUME 85 fl (80-97); RED CELL DISTRIBUTION WIDTH 16.4 % (11.5-14.0); WHITE BLOOD COUNT 13.5 10^3/uL (4.0-10.5)
[2016-07-28 06:55] LABS: ANION GAP 8 (5-19); BLOOD UREA NITROGEN 21 mg/dL (7-20); CALCIUM 9.3 mg/dL (8.4-10.2); CARBON DIOXIDE 29 mmol/L (22-30); CHLORIDE 102 mmol/L (98-107); CREATININE RESULT 0.78 mg/dL (0.52-1.25); GLUCOSE 84 mg/dL (75-110); POTASSIUM 4.6 mmol/L (3.6-5.0)
[2016-07-28] MEDS: METFORMIN HCL 500 MG TABLET PO SCH ×2 (09:30→18:16)
[2016-07-28] MEDS: LOSARTAN POTASSIUM 50 MG TABLET PO SCH (09:30)
[2016-07-28] MEDS: METOPROLOL SUCCINATE 50 MG TAB.SR.24H PO SCH (09:31)
[2016-07-28] MEDS: GLIMEPIRIDE 4 MG TABLET PO SCH (09:31)
[2016-07-28] MEDS: DULOXETINE HCL 30 MG CAPSULE.DR PO SCH (09:31)
[2016-07-28] MEDS: HYDROCHLOROTHIAZIDE 25 MG TABLET PO SCH (09:32)
[2016-07-28] MEDS: LEVOFLOXACIN 500 MG/D5W RTU 500 MG/100 ML RTUPB IV SCH (09:32)
[2016-07-28] MEDS: CEFEPIME HCL 2 GM in DEXTROSE 5%-WATER 50 ML IV SCH ×2 (09:33→22:01)
[2016-07-28] MEDS: RIFAXIMIN 550 MG TABLET PO SCH ×2 (09:33→22:00)
[2016-07-28 14:47] LABS: APPEARANCE,URINE CLEAR; BILIRUBIN,URINE NEGATIVE (NEGATIVE); GLUCOSE, URINE NEGATIVE (NEGATIVE); KETONES,URINE NEGATIVE (NEGATIVE); LEUKOCYTE ESTERASE,URINE NEGATIVE (NEGATIVE); NITRITE,URINE NEGATIVE (NEGATIVE); PROTEIN,URINE NEGATIVE (NEGATIVE); URINE SPECIFIC GRAVITY 1.021; UROBILINOGEN,URINE NEGATIVE mg/dL (<2.0)
[2016-07-28] MEDS: NICOTINE 21 MG/24 HR PATCH.TD24 TD SCH (18:16)
[2016-07-28] MEDS: ATORVASTATIN CALCIUM 80 MG TABLET PO SCH (22:00)
[2016-07-28] MEDS: HEPARIN SODIUM,PORCINE/D5W 250 ML IV PRN (22:02)
[2016-07-29] MEDS: IPRATROPIUM/ALBUTEROL 0.5-2.5 MG/3 ML AMPUL NEB PRN ×2 (05:45→08:58)
[2016-07-29 05:58] LABS: ABSOLUTE BASOPHILS # (AUTO) 0.1 10^3/uL (0.0-0.2); ABSOLUTE EOSINOPHILS # (AUTO) 0.3 10^3/uL (0.0-0.6); ABSOLUTE LYMPHOCYTES (AUTO) 1.7 10^3/uL (0.5-4.7); ABSOLUTE MONOCYTES (AUTO) 0.6 10^3/uL (0.1-1.4); ABSOLUTE NEUT (AUTO) 6.8 10^3/uL (1.7-8.2); BASOPHILS % (AUTO) 0.8 % (0-2); EOSINOPHILS % (AUTO) 3.1 % (0-6); HEMATOCRIT 34.3 % (36.0-47.0); HEMOGLOBIN 11.3 g/dL (12.0-15.5); HGB HCT DIFFERENCE -0.4; LYMPHOCYTES % (AUTO) 17.9 % (13-45); MEAN CORPUSCULAR HEMOGLOBIN 27.7 pg (27.0-33.4); MEAN CORPUSCULAR HGB CONC 32.8 g/dL (32.0-36.0); MEAN CORPUSCULAR VOLUME 85 fl (80-97); MONOCYTES % (AUTO) 6.6 % (3-13); RED BLOOD COUNT 4.06 10^6/uL (3.72-5.28); RED CELL DISTRIBUTION WIDTH 16.1 % (11.5-14.0); SEGMENTED NEUTROPHILS % (AUTO) 71.6 % (42-78); WHITE BLOOD COUNT 9.5 10^3/uL (4.0-10.5)
[2016-07-29] MEDS: LANSOPRAZOLE 30 MG TAB.RAP.DR PO SCH (06:20)
[2016-07-29] MEDS: LEVOTHYROXINE SODIUM 0.1 MG TABLET PO SCH (06:20)
[2016-07-29 06:21] LABS: ANION GAP 8 (5-19); BLOOD UREA NITROGEN 20 mg/dL (7-20); CALCIUM 9.1 mg/dL (8.4-10.2); CARBON DIOXIDE 30 mmol/L (22-30); CHLORIDE 96 mmol/L (98-107); GLUCOSE 52 mg/dL (75-110); SODIUM 134.4 mmol/L (137-145)
[2016-07-29 07:58] VITALS: BP 92/48
== END 2016-07-29 09:00 | disposition short-term general hospital (02) | DRG 281 ==
LOC: ER 07:21 → EH 08:59 → UNDOADMIN 09:03 → EH 09:03 → 3W 12:11
PROVIDERS: ADMIT Internal Medicine; ATTEND Internal Medicine
DX: I21.3 ST elevation (STEMI) myocardial infarction of unspecified site (principal); J44.1 Chronic obstructive pulmonary disease with (acute) exacerbation; F17.210 Nicotine dependence, cigarettes, uncomplicated; I10 Essential (primary) hypertension; E03.9 Hypothyroidism, unspecified; E11.9 Type 2 diabetes mellitus without complications; R09.02 Hypoxemia; K75.81 Nonalcoholic steatohepatitis (NASH); K74.69 Other cirrhosis of liver; I48.91 Unspecified atrial fibrillation; F32.9 Major depressive disorder, single episode, unspecified; Z79.4 Long term (current) use of insulin; Z79.84 Long term (current) use of oral hypoglycemic drugs; Z79.51 Long term (current) use of inhaled steroids
CPT/HCPCS: 36415; 71010; 71250; 74220; 80048; 80053; 81001; 82550; 82553; 82803; 82962; 83036; 83605; 83880; 84484; 85025; 85027; 85610; 85730; 87040; 87086; 93005; 93010; 93306; 94660; 96365; 99291; 99406; A9270-GY; J0692; J1644; J1815; J1956; J3490; J7030; J7620; S0119

== ENCOUNTER 2016-09-09 08:56 | Day surgery (SDC) | payer BC ==
[~2016-09-09 08:56] MED LIST: KETOROLAC TROMETHAMINE 0.45% 4 DROP/0.4 ML DROPERETTE OS PRN
[2016-09-09] MEDS ORDERED: LIDOCAINE 1% INJ-PF (10 MG/ML) 30 ML SDV ONE (09:00)
[2016-09-09] MEDS ORDERED: PHENYLEPHRINE/KETOROLAC 1%-0.3% 4 ML VIAL ONE (09:00)
[2016-09-09] MEDS ORDERED: CHONDR SU A NA/HYALUR INTRAOC KIT (SURGICARE) ONE (09:00)
[2016-09-09] MEDS: TETRACAINE HCL 0.5% OPH SOLN 2 ML OS PRN ×3 (09:23→10:01)
[2016-09-09] MEDS: CYCLOPENTOLATE 0.2%/PHENYLEPHRINE 1% OPH SOLN 2 ML OS PRN ×3 (09:23→09:53)
[2016-09-09] MEDS: TROPICAMIDE 1% OPH SOLN 3 ML OS PRN ×3 (09:23→09:53)
[2016-09-09] MEDS: BESIFLOXACIN HCL 0.6% OPH SUSP 5 ML BOTTLE OS PRN ×3 (09:23→10:59)
[2016-09-09] MEDS ORDERED: ALBUTEROL SULFATE 0.083% NEB 2.5 MG/3 ML AMPUL NEB ONE (09:41)
[2016-09-09] MEDS ORDERED: MIDAZOLAM 2 MG/2 ML INJ ONE (09:51)
[2016-09-09] MEDS ORDERED: FENTANYL CITRATE INJ/PF 100 MCG/2 ML AMPUL ONE ×2 (09:52→10:43)
[2016-09-09] MEDS ORDERED: CHONDR SU A NA/HYALUR SOD 0.5 ML DISP.SYRIN ONE ×3 (10:21→10:37)
[2016-09-09] MEDS ORDERED: ACETYLCHOLINE CHLORIDE 20 MG/2 ML KIT ONE (10:54)
[2016-09-09] MEDS ORDERED: TOBRAMYCIN SULFATE/DEXAMETH OPH OINTMENT 3.5 GM ONE (10:58)
[2016-09-09] MEDS ORDERED: ACETAZOLAMIDE 250 MG TABLET ONE (11:12)
--- NOTE | 2016-09-10 07:43 | [facility] OPERATIVE REPORT E ---
[facility] Operative Report NAME: BAIRON FU AGE: 71Y DATE OF SURGERY: 09/09/2016 ROOM: PREOPERATIVE DIAGNOSES: 1. Cataract, left eye. 2. Loose zonules of the left eye. POSTOPERATIVE DIAGNOSES: 1. Cataract, left eye. 2. Loose zonules of the left eye. OPERATION: Cataract extraction with intraocular lens implant of the left eye. SURGEON: BHARAT GARCIA M.D. ANESTHESIA: Topical. BLOOD LOSS: Less than 2 mL. COMPLICATIONS: Potential bag instability and potential posterior capsule tear. DESCRIPTION OF OPERATIVE REPORT: After obtaining appropriate informed consent, the patient was brought back to the operating room where the left eye was prepped and draped in sterile fashion. A lid speculum was placed in the left eye. A 1.2 mm keratome was used to make a paracentesis. This was followed by installation of Omidria followed by preservative-free intraocular lidocaine and followed by viscoelastic. A 2.4 mm keratome was used to make a clear corneal incision temporally . A continuous curvilinear capsulorrhexis was performed using cystotome and Utrata. Hydrodissection was carried out. Lens was rotated and the lens was then dismantled in a [id number] technique. All 4 quadrants were removed. Following this, irrigation aspiration was used to remove the cortex. As the last piece of cortex was being removed, it was found that the bag was behaving differently. Viscoelastic was injected into the eye to deepen the eye. At this time, the bag was carefully inspected and it appeared to me to be completely intact; however, there may have been a small peripheral posterior capsule tear versus an area of weak zonules. At no point was there any vitreous coming forward, but due to the behavior of the bag, it was decided to change lenses and use an MA60AC lens and put it in the sulcus. Therefore, an MA60AC lens was loaded in a B cartridge and the incision was enlarged. The MA60AC lens of 20.5 diopters was injected into the sulcus and found to be in excellent position. Following this, the rest of the viscoelastic was removed with I/A. Miochol was inserted into the eye to shrink the pupil and the lens was found to be in excellent position with a nice round pupil and no vitreous in the anterior chamber. The corneal incision had sealed nicely without needing a suture and was cayden negative. Besivance was instilled into the eye and TobraDex ointment with a pressure patch was instilled. The patient was brought back to the recovery room where decided to treat with 500 mg of p.o. Diamox to prevent an IOP spike as there was still potential for some viscoelastic due to a very gentle irrigation aspiration. The patient woke up in postop recovery in stable condition. DICTATING PHYSICIAN: BHARAT GARCIA M.D. [id number] PHY#: [id number] ID: [id number] JOB#: [id number] ACCT: [id number] cc:BHARAT GARCIA M.D. > MTDD
--- NOTE | 2016-09-10 07:48 | [facility] DISCHARGE SUMMARY E ---
[facility] Discharge Summary NAME: BAIRON FU AGE: 71Y ADMITTED: 09/09/2016 DISCHARGED: 09/09/2016 HOSPITAL COURSE: This is a 70-year-old female who underwent cataract extraction of the left eye with a sulcus IOL due to uncertainty of the stability of the capsular bag. This was all explained to the patient in the postop recovery as well as the family members. DIAGNOSIS: Cataract, left eye. PROCEDURE: Cataract extraction with sulcus IOL of the left eye. The patient wanted surgery because of having difficulty with glare at night, making it hard for her to drive, and she could not read small print like medicine bottles. PLAN: She is to be on a regular diet. No bending at her waist. No heavy lifting. She is to leave the pressure patch on until I see her tomorrow morning for a 1 day postop visit. She is prescribed Diamox p.o. 250 mg to be taken q. 6 hours until her appointment. She is to sleep with a shield until we see her then and to call with any concerns or any discomfort. DICTATING PHYSICIAN: BHARAT GARCIA M.D. [id number] PHY#: [id number] ID: [id number] JOB#: [id number] ACCT: [id number] cc:BHARAT GARCIA M.D. >
== END 2016-09-09 12:01 | disposition home or self-care (01) ==
LOC: SC 08:56
PROVIDERS: ATTEND Internal Medicine
DX: H25.813 Combined forms of age-related cataract, bilateral (principal); H57.03 Miosis; H27.8 Other specified disorders of lens; E11.9 Type 2 diabetes mellitus without complications; I10 Essential (primary) hypertension; K74.60 Unspecified cirrhosis of liver; J45.909 Unspecified asthma, uncomplicated; E07.9 Disorder of thyroid, unspecified; J44.9 Chronic obstructive pulmonary disease, unspecified; M19.90 Unspecified osteoarthritis, unspecified site; Z79.51 Long term (current) use of inhaled steroids; Z87.891 Personal history of nicotine dependence; I25.2 Old myocardial infarction; Z79.4 Long term (current) use of insulin; Z79.84 Long term (current) use of oral hypoglycemic drugs
CPT/HCPCS: 66984; 82962; V2632 ×2; J3490 ×6; J2250; J3010; C9447; 142

== ENCOUNTER 2016-12-02 09:56 | Observation (INO) | payer BC ==
[2016-12-02] MEDS: IPRATROPIUM/ALBUTEROL 0.5-2.5 MG/3 ML AMPUL NEB SCH ×5 (11:25→23:56)
[2016-12-02] MEDS ORDERED: IPRATROPIUM/ALBUTEROL 0.5-2.5 MG/3 ML AMPUL NEB ONE (11:27)
[2016-12-02] MEDS ORDERED: DEXTROSE 50%-WATER SYRINGE 25 GM/50 ML DOSE IV PRN (11:54)
[2016-12-02] MEDS ORDERED: DEXTROSE 40% GEL 15 GM TUBE X 2 PO PRN (11:54)
[2016-12-02] MEDS ORDERED: DEXTROSE 50%-WATER SYRINGE 12.5 GM/25 ML DOSE IV PRN (11:54)
[2016-12-02] MEDS ORDERED: DEXTROSE 40% GEL 15 GM TUBE PO PRN (11:54)
[2016-12-02] MEDS ORDERED: GLUCAGON,HUMAN RECOMB 1 MG INJ IM PRN (11:54)
[2016-12-02] MEDS ORDERED: LEVOFLOXACIN 750 MG/D5W RTU 750 MG/150 ML RTUPB IV ONE (12:30)
[2016-12-02] MEDS: METHYLPREDNISOLONE INJ 125 MG/2 ML SDV IV SCH ×3 (12:33→22:22)
[2016-12-02 12:56] LABS: HEMATOCRIT 36.4 % (36.0-47.0); HEMOGLOBIN 11.4 g/dL (12.0-15.5); HGB HCT DIFFERENCE -2.2; MEAN CORPUSCULAR HEMOGLOBIN 25.5 pg (27.0-33.4); MEAN CORPUSCULAR HGB CONC 31.4 g/dL (32.0-36.0); MEAN CORPUSCULAR VOLUME 81 fl (80-97); RED BLOOD COUNT 4.49 10^6/uL (3.72-5.28); RED CELL DISTRIBUTION WIDTH 15.6 % (11.5-14.0); WHITE BLOOD COUNT 7.9 10^3/uL (4.0-10.5)
[2016-12-02 13:24] LABS: ALANINE AMINOTRANSFERASE 47 U/L (9-52); ALBUMIN 4.6 g/dL (3.5-5.0); ALKALINE PHOSPHATASE 145 U/L (38-126); ANION GAP 13 (5-19); ASPARTATE AMINO TRANSFERASE 42 U/L (14-36); BILIRUBIN,DIRECT 0.4 mg/dL (0.0-0.4); BILIRUBIN,TOTAL 0.5 mg/dL (0.2-1.3); BLOOD UREA NITROGEN 13 mg/dL (7-20); CARBON DIOXIDE 23 mmol/L (22-30); CHLORIDE 106 mmol/L (98-107); CREATININE RESULT 0.65 mg/dL (0.52-1.25); GLUCOSE 94 mg/dL (75-110); POTASSIUM 4.5 mmol/L (3.6-5.0); SODIUM 141.9 mmol/L (137-145); TOTAL PROTEIN 7.9 g/dL (6.3-8.2)
[2016-12-02] MEDS ORDERED: ALBUTEROL SULFATE 0.083% NEB 2.5 MG/3 ML AMPUL NEB PRN (15:11)
[2016-12-02] MEDS ORDERED: ALBUTEROL SULFATE HFA (90 MCG/PUFF) 200 PUFF/8.5 GM MDI IH PRN (15:35)
[2016-12-02] MEDS ORDERED: OXYCODONE HCL IR 5 MG TABLET PO PRN (15:35)
[2016-12-02] MEDS ORDERED: BUTALB/ACETAMINOPHEN/CAFFEINE 1 TAB EACH PO PRN (15:35)
--- NOTE | 2016-12-02 15:47 | RADIOLOGY REPORT (SQ) ---
EXAM DESCRIPTION: CHEST SINGLE VIEW COMPLETED DATE/TIME: 12/02/2016 2:04 pm REASON FOR STUDY: flank abdominal pain COMPARISON: CT chest 07/26/2016 Two-view chest 12/14/2015 EXAM PARAMETERS: NUMBER OF VIEWS: One view. TECHNIQUE: Single frontal radiographic view of the chest acquired. RADIATION DOSE: NA LIMITATIONS: None. FINDINGS: LUNGS AND PLEURA: Upper lobes are hyperlucent from obstructive disease. No focal infiltrates. No pleural effusions. No pneumothorax. MEDIASTINUM AND HILAR STRUCTURES: No masses. Contour normal. HEART AND VASCULAR STRUCTURES: Heart normal in size. Normal vasculature. BONES: No acute findings. HARDWARE: None in the chest. OTHER: No other significant finding. IMPRESSION: Obstructive lung disease No definite acute infiltrates TECHNICAL DOCUMENTATION: JOB ID: [id number]
--- NOTE | 2016-12-02 15:54 | RADIOLOGY REPORT (SQ) ---
EXAM DESCRIPTION: CT ABD/PELVIS ORAL ONLY COMPLETED DATE/TIME: 12/02/2016 1:54 pm REASON FOR STUDY: flank abdomianl pain COMPARISON: CT abdomen pelvis 02/12/2014, 07/13/2013 TECHNIQUE: CT scan of the abdomen and pelvis performed without intravenous or oral contrast. Images reviewed with lung, soft tissue, and bone windows. Reconstructed coronal and sagittal MPR images revi ewed. All images stored on PACS. All CT scanners at this facility use dose modulation, iterative reconstruction, and/or weight based d osing when appropriate to reduce radiation dose to as low as reasonably achievable (ALARA). [facility]: Dose Right [facility]: CareDose [facility]: Dose Right [facility]: Teradose 4D [facility]: [employer] RADIATION DOSE: 13.53mGy. LIMITATIONS: None. FINDINGS: LOWER CHEST: No significant findings. No nodules or infiltrates. NON-CONTRASTED LIVER, SPLEEN, ADRENALS: Liver has a nodular contour worrisome for cirrhosis. No disc rete liver mass. No splenomegaly. Adrenal glands unremarkable. PANCREAS: No masses. No peripancreatic inflammatory changes. GALLBLADDER: No identified stones by CT criteria. No inflammatory changes to suggest cholecystitis. RIGHT KIDNEY AND URETER: No suspicious masses. Assessment limited by lack of IV contrast. 5 mm calc ulus right mid-pole kidney unchanged from prior studies. No right ureteral stones. No hydronephros is or hydroureter. LEFT KIDNEY AND URETER: No suspicious masses. Assessment limited by lack of IV contrast. No signifi cant calcifications. No hydronephrosis or hydroureter. AORTA AND RETROPERITONEUM: No aneurysm. No retroperitoneal masses or adenopathy. BOWEL AND PERITONEAL CAVITY: No obvious masses or inflammatory changes. No free fluid. APPENDIX: Normal. PELVIS, BLADDER, AND ABDOMINAL WALL:No abnormal masses. No free fluid. Bladder normal. BONES: Chronic L4 upper endplate central depression OTHER: No other significant finding. IMPRESSION: No CT findings to explain history of flank pain. Right kidney intrarenal nonobstructive stones. Nodular appearing liver from cirrhosis TECHNICAL DOCUMENTATION: JOB ID: [id number] Quality ID # [id number]: Final reports with documentation of one or more dose reduction techniques (e.g., Au tomated exposure control, adjustment of the mA and/or kV according to patient size, use of iterative reconstruction technique) 2010 [employer]- All Rights Reserved
[2016-12-02] MEDS ORDERED: IPRATROPIUM/ALBUTEROL 0.5-2.5 MG/3 ML AMPUL NEB SCH (16:00)
[2016-12-02] MEDS ORDERED: (PENDING PHARMACY ID) (Insulin Aspart [Novolog Flexpen] 5 UNIT) SUBCUT SCH (17:00)
[2016-12-02] MEDS: TIZANIDINE HCL 4 MG TABLET PO SCH (17:33)
[2016-12-02] MEDS: METFORMIN HCL 500 MG TABLET PO SCH (17:33)
[2016-12-02] MEDS: INSULIN LISPRO 100 UNIT/ML 3 ML VIAL SUBCUT SCH (17:35)
[2016-12-02 18:39] LABS: APPEARANCE,URINE CLEAR; BILIRUBIN,URINE NEGATIVE (NEGATIVE); GLUCOSE, URINE NEGATIVE (NEGATIVE); KETONES,URINE NEGATIVE (NEGATIVE); LEUKOCYTE ESTERASE,URINE NEGATIVE (NEGATIVE); NITRITE,URINE NEGATIVE (NEGATIVE); PROTEIN,URINE NEGATIVE (NEGATIVE); UROBILINOGEN,URINE NEGATIVE mg/dL (<2.0)
--- NOTE | 2016-12-02 19:39 | RADIOLOGY REPORT (SQ) ---
EXAM DESCRIPTION: CT CHEST WITHOUT COMPLETED DATE/TIME: 12/02/2016 7:24 pm REASON FOR STUDY: very severe COPD COMPARISON: Chest x-ray dated 12/02/[address] scan dated 07/26/2016 TECHNIQUE: CT scan performed of the chest without intravenous contrast. Images reviewed with lung, soft tissue and bone windows. Reconstructed coronal and sagittal MPR images reviewed. All images st ored on PACS. All CT scanners at this facility use dose modulation, iterative reconstruction, and/or weight based d osing when appropriate to reduce radiation dose to as low as reasonably achievable (ALARA). [facility]: Dose Right [facility]: CareDose [facility]: Dose Right [facility]: Teradose 4D [facility]: [employer] RADIATION DOSE: 11.32 mGy. LIMITATIONS: No technical limitations. FINDINGS: LUNGS AND PLEURA: No masses, infiltrates, pneumothorax. No pleural effusions, calcificati ons. Bilateral apical pleural and parenchymal scarring is again identified. Emphysematous changes a re again identified predominately in the upper lobes. HILAR AND MEDIASTINAL STRUCTURES: No identified masses or abnormal nodes. No obvious aneurysm. HEART AND VASCULAR STRUCTURES: No aneurysm. No pericardial effusion. UPPER ABDOMEN: See results under abdominal CT scan THYROID AND OTHER SOFT TISSUES: No masses. No adenopathy. BONES: There is mild compression of the superior endplate of 1 of the mid thoracic vertebra which was not present on the previous study. HARDWARE: None in the chest. OTHER: No other significant findings. IMPRESSION: Obstructive lung disease. No acute changes are identified. Other findings as noted abo ve TECHNICAL DOCUMENTATION: JOB ID: [id number] Quality ID # [id number]: Final reports with documentation of one or more dose reduction techniques (e.g., Au tomated exposure control, adjustment of the mA and/or kV according to patient size, use of iterative reconstruction technique) 2010 [employer] All Rights Reserved
--- NOTE | 2016-12-02 20:31 | PDOC H&P ---
History of Present Illness Admission Date/PCP: 12/02/16 09:56 ROWENA CLEANING MD History of Present Illness: BAIRON FU is a 71 year old female, she was admitted from the office into the hospital, she was seen in the office about 10 days ago when she came for evaluation of her symptoms including respiratory and flank pain.She Was prescribed Prednisone and antibiotic. She continues to be symptomatic with shortness of breath, wheezing, and back pain especially in the left costovertebral angle. She has multiple comorbid conditions including very severe chronic lung disease, cardiomyopathy, Pulmonary hypertension, liver cirrhosis, type 2 diabetes mellitus because of the multiple comorbid conditions and the fact that she continues to be, symptomatic she was admitted directly for management .CAT scan of the abdomen and pelvis with IV contrast was done showed liver with nodular contour worrisome for cirrhosis but no discrete liver mass, otherwise it was a negative study. CT chest without contrast was done it showed emphysematous changes. Mild compression of the superior endplate of the mid thoracic vertebra which was not present on the previous study Past Medical History Cardiac Medical History: Reports: Atrial Fibrillation, Myocardial Infarction - I MONTH , Hyperlipidema, Hypertension Pulmonary Medical History: Reports: Asthma - INHALER, Chronic Obstructive Pulmonary Disease (COPD), Pneumonia Endocrine Medical History: Reports: Diabetes Mellitus Type 2, Hypothyroidism GI Medical History: Reports: Cirrhosis Musculoskeltal Medical History: Reports: Arthritis Psychiatric Medical History: Reports: Depression Hematology: Reports: Anemia Denies: Sickle Cell Disease Past Surgical History Past Surgical History: Reports: Cardiac Catheterization Social History Smoking Status: Former Smoker Cigarettes Packs Per Day: 2 Number of Years Smokin Last Time Smoked: July 2016 Frequency of Alcohol Use: None Hx Recreational Drug Use: No Drugs: None Hx Prescription Drug Abuse: No Family History Family History: CAD, CVA, DM, Hyperlipidemia, Hypertension, Malignancy, Thyroid Disfunction Parental Family History Reviewed: Yes Children Family History Reviewed: Yes Sibling(s) Family History Reviewed.: Yes Medication/Allergy Home Medications: Albuterol Sulfate [Ventolin HFA MDI 18 GM] 2 puff IH Q4HP PRN 12/02/16 Aspirin [Aspirin 81 mg Chewable Tablet] 81 mg PO DAILY 12/02/16 Atorvastatin Calcium [Lipitor 80 mg Tablet] 80 mg PO QHS 12/02/16 Butalb/Acetaminophen/Caffeine [Fioricet 50-300-40 mg Capsule] 1 cap PO Q4HP PRN 12/02/16 Dexlansoprazole [Dexilant 60 mg Capsule] 60 mg PO QAM 12/02/16 Fluticasone/Salmeterol [Advair 250-50 Diskus 28 dose] 1 inh IH Q12 12/02/16 Furosemide [Lasix] 40 mg PO DAILY 12/02/16 Glimepiride [Amaryl 4 mg Tablet] 4 mg PO QAM 12/02/16 Insulin Aspart [Novolog Flexpen] 5 unit SUBCUT MEALS 12/02/16 Ipratropium/Albuterol Sulfate [Duoneb 3 ml Ampul] 3 ml NEB RTQID 12/02/16 Levothyroxine Sodium [Synthroid] 25 mcg PO DAILY 12/02/16 Levothyroxine Sodium [Synthroid] 200 mcg PO DAILY 12/02/16 Losartan Potassium [Cozaar 100 mg Tablet] 100 mg PO DAILY 12/02/16 Metformin HCl [Glucophage] 1,000 mg PO BIDBS 12/02/16 Metoprolol Succinate [Toprol Xl 50 mg Tab.sr] 50 mg PO DAILY 12/02/16 Oxycodone HCl [Oxycodone HCl 10 MG Tablet] 10 mg PO Q8HP PRN 12/02/16 Roflumilast [Daliresp 500 mcg Tablet] 500 mcg PO DAILY 12/02/16 Sertraline HCl [Zoloft 50 mg Tablet] 50 mg PO DAILY 12/02/16 Tiotropium [place] [Spiriva Handihaler 18 mcg/dose (30 Dose)] 1 cap IH DAILY 07/20 Tizanidine HCl [Zanaflex 4 mg Tablet] 4 mg PO TID 12/02/16 Zolpidem Tartrate [Ambien 5 mg Tablet] 5 mg PO QHS 12/02/16 Allergies/Adverse Reactions: No Known Allergies Allergy (Verified 09/09/16 09:31) Review of Systems Constitutional: PRESENT: anorexia, chills, fatigue Eyes: ABSENT: visual disturbances Ears: ABSENT: hearing changes Cardiovascular: ABSENT: chest pain, dyspnea on exertion, edema, orthropnea, palpitations Respiratory: PRESENT: cough, dyspnea Gastrointestinal: ABSENT: abdominal pain, constipation, diarrhea, hematemesis, hematochezia, nausea, vomiting Genitourinary: ABSENT: dysuria, hematuria Musculoskeletal: ABSENT: joint swelling Integumentary: ABSENT: rash, wounds Neurological: ABSENT: abnormal gait, abnormal speech, confusion, dizziness, focal weakness, syncope Psychiatric: ABSENT: anxiety, depression, homidical ideation, suicidal ideation Endocrine: ABSENT: cold intolerance, heat intolerance, menstrual abnormalities, polydipsia, polyuria Hematologic/Lymphatic: ABSENT: easy bleeding, easy bruising, lymphadenopathy Physical Exam Vital Signs: Temp Pulse Resp BP Pulse Ox 98.4 F 92 19 151/75 H 95 12/02/16 16:38 12/02/16 16:38 12/02/16 16:38 12/02/16 16:38 12/02/16 16:38 Intake & Output 12/01/16 12/02/16 12/03/16 06:59 06:59 06:59 Intake Total 397 Output Total 500 Balance -103 Weight 80.2 kg General appearance: PRESENT: severe distress Head exam: PRESENT: atraumatic, normocephalic Eye exam: PRESENT: conjunctiva pink, EOMI, PERRLA Ear exam: PRESENT: normal external ear exam Mouth exam: PRESENT: moist, tongue midline Neck exam: PRESENT: full ROM Respiratory exam: PRESENT: wheezes Cardiovascular exam: PRESENT: RRR, +S1, +S2 Vascular exam: PRESENT: normal capillary refill GI/Abdominal exam: PRESENT: normal bowel sounds, soft Rectal exam: PRESENT: deferred Neurological exam: PRESENT: alert, awake, oriented to person, oriented to place , oriented to time, oriented to situation, CN II-XII grossly intact Psychiatric exam: PRESENT: appropriate affect, normal mood Skin exam: PRESENT: dry, intact, warm Results Laboratory Results: 12/02/16 12:19 12/02/16 12:19 12/02/16 12/02/16 12/02/16 12:19 12:19 18:21 WBC 7.9 RBC 4.49 Hgb 11.4 L Hct 36.4 MCV 81 MCH 25.5 L MCHC 31.4 L RDW 15.6 H Plt Count 222 Sodium 141.9 Potassium 4.5 Chloride 106 Carbon Dioxide 23 Anion Gap 13 BUN 13 Creatinine 0.65 Est GFR ( Amer) > 60 Est GFR (Non-Af Amer) > 60 Glucose 94 Calcium 10.0 Total Bilirubin 0.5 AST 42 H ALT 47 Alkaline Phosphatase 145 H Total Protein 7.9 Albumin 4.6 Urine Color YELLOW Urine Appearance CLEAR Urine pH 6.0 Ur Specific [place] 1.010 Urine Protein NEGATIVE Urine Glucose (UA) NEGATIVE Urine Ketones NEGATIVE Urine Blood NEGATIVE Urine Nitrite NEGATIVE Ur Leukocyte Esterase NEGATIVE Urine WBC (Auto) 1 Urine RBC (Auto) 1 Impressions: Abdomen/Pelvis CT 12/02/16 00:00 IMPRESSION: No CT findings to explain history of flank pain. Right kidney intrarenal nonobstructive stones. Nodular appearing liver from cirrhosis Chest CT 12/02/16 00:00 IMPRESSION: Obstructive lung disease. No acute changes are identified. Other findings as noted above Chest X-Ray 12/02/16 00:00 IMPRESSION: Obstructive lung disease No definite acute infiltrates Assessment & Plan - Diagnosis (1) Chronic obstructive pulmonary disease with acute exacerbation Is this a current diagnosis for this admission?: YesPlan: He was admitted because of failed out-patient treatment for COPD, she will treated with IV Solu-Medrol, IV antibiotic, bronchodilators (2) Pulmonary hypertension Is this a current diagnosis for this admission?: Yes (3) Diabetes mellitus type 2 in nonobese Is this a current diagnosis for this admission?: Yes (4) Cirrhosis of liver Qualifiers: Hepatic cirrhosis type: unspecified hepatic cirrhosis Ascites presence : without ascites Qualified Code(s): K74.60 - Unspecified cirrhosis of liver Is this a current diagnosis for this admission?: Yes
[2016-12-02] MEDS ORDERED: ZOLPIDEM TARTRATE 5 MG TABLET PO SCH (22:00)
[2016-12-02] MEDS ORDERED: ATORVASTATIN CALCIUM 80 MG TABLET PO SCH (22:00)
[2016-12-02] MEDS: FLUTICASONE/SALMETEROL DISKUS 250-50 MCG/DOSE IH SCH (22:21)
[2016-12-03] MEDS: IPRATROPIUM/ALBUTEROL 0.5-2.5 MG/3 ML AMPUL NEB SCH ×5 (04:21→19:54)
[2016-12-03] MEDS: METHYLPREDNISOLONE INJ 125 MG/2 ML SDV IV SCH ×2 (06:17→13:36)
[2016-12-03] MEDS: INSULIN LISPRO 100 UNIT/ML 3 ML VIAL SUBCUT PRN ×2 (07:45→11:39)
[2016-12-03] MEDS: INSULIN LISPRO 100 UNIT/ML 3 ML VIAL SUBCUT SCH ×3 (07:45→17:17)
[2016-12-03] MEDS: METFORMIN HCL 500 MG TABLET PO SCH ×2 (07:46→17:17)
[2016-12-03] MEDS ORDERED: GLIMEPIRIDE 4 MG TABLET PO SCH (08:00)
[2016-12-03] MEDS ORDERED: LANSOPRAZOLE 30 MG TAB.RAP.DR PO SCH (08:00)
[2016-12-03] MEDS: TIZANIDINE HCL 4 MG TABLET PO SCH ×3 (09:21→17:13)
[2016-12-03] MEDS: FLUTICASONE/SALMETEROL DISKUS 250-50 MCG/DOSE IH SCH (09:23)
[2016-12-03] MEDS ORDERED: SERTRALINE HCL 50 MG TABLET PO SCH (10:00)
[2016-12-03] MEDS ORDERED: ROFLUMILAST 500 MCG TABLET PO SCH (10:00)
[2016-12-03] MEDS ORDERED: LOSARTAN POTASSIUM 50 MG TABLET PO SCH (10:00)
[2016-12-03] MEDS ORDERED: LEVOTHYROXINE SODIUM 0.1 MG TABLET PO SCH (10:00)
[2016-12-03] MEDS ORDERED: FUROSEMIDE 40 MG TABLET PO SCH (10:00)
[2016-12-03] MEDS ORDERED: METOPROLOL SUCCINATE 50 MG TAB.SR.24H PO SCH (10:00)
[2016-12-03] MEDS ORDERED: LEVOFLOXACIN 750 MG/D5W RTU 750 MG/150 ML RTUPB IV SCH (10:00)
[2016-12-03] MEDS ORDERED: TIOTROPIUM BROMIDE DPI 5 CAP/KIT (18 MCG/CAP) IH SCH (10:00)
[2016-12-03] MEDS ORDERED: LEVOTHYROXINE SODIUM 0.025 MG TABLET PO SCH (10:00)
[2016-12-03] MEDS ORDERED: ASPIRIN 81 MG TABLET, CHEWABLE PO SCH (10:00)
[2016-12-03 18:21] LABS: HEMATOCRIT 31.5 % (36.0-47.0); HEMOGLOBIN 9.9 g/dL (12.0-15.5); HGB HCT DIFFERENCE -1.8; MEAN CORPUSCULAR HGB CONC 31.3 g/dL (32.0-36.0); MEAN CORPUSCULAR VOLUME 80 fl (80-97); RED BLOOD COUNT 3.95 10^6/uL (3.72-5.28); RED CELL DISTRIBUTION WIDTH 15.8 % (11.5-14.0); WHITE BLOOD COUNT 13.8 10^3/uL (4.0-10.5)
[2016-12-03 18:37] LABS: ALANINE AMINOTRANSFERASE 37 U/L (9-52); ALBUMIN 3.8 g/dL (3.5-5.0); ALKALINE PHOSPHATASE 102 U/L (38-126); ANION GAP 14 (5-19); ASPARTATE AMINO TRANSFERASE 27 U/L (14-36); BASOPHILS % (MANUAL) 0 % (0-2); BILIRUBIN,DIRECT 0.3 mg/dL (0.0-0.4); BILIRUBIN,TOTAL 0.4 mg/dL (0.2-1.3); BLOOD UREA NITROGEN 28 mg/dL (7-20); CALCIUM 9.9 mg/dL (8.4-10.2); CARBON DIOXIDE 20 mmol/L (22-30); CHLORIDE 107 mmol/L (98-107); CREATININE RESULT 0.79 mg/dL (0.52-1.25); EOSINOPHILS % (MANUAL) 0 % (0-6); GLUCOSE 175 mg/dL (75-110); LYMPHOCYTES % (MANUAL) 5 % (13-45); POTASSIUM 4.4 mmol/L (3.6-5.0); SODIUM 140.5 mmol/L (137-145); TOTAL CELLS COUNTED 100; TOTAL PROTEIN 6.7 g/dL (6.3-8.2)
[2016-12-03 18:44] LABS: ANISOCYTOSIS SLIGHT; HYPOCHROMASIA SLIGHT; MICROCYTOSIS SLIGHT; TOXIC GRANULATION SLIGHT
--- NOTE | 2016-12-03 19:43 | PDOC DISCHARGE SUMMARY ---
General - Admit/Disc Date/PCP Admission Date/Primary Care Provider: 12/02/16 09:56 ROWENA CLEANING MD Discharge Date: 12/03/16 - Discharge Diagnosis (1) Chronic obstructive pulmonary disease with acute exacerbation Is this a current diagnosis for this admission?: Yes (2) Pulmonary hypertension Is this a current diagnosis for this admission?: Yes (3) Diabetes mellitus type 2 in nonobese Is this a current diagnosis for this admission?: Yes (4) Cirrhosis of liver Is this a current diagnosis for this admission?: Yes - Additional Information Discharge Diet: Diabetic Discharge Activity: Activity As Tolerated Home Medications: Albuterol Sulfate [Ventolin HFA MDI 18 GM] 2 puff IH Q4HP PRN 12/02/16 Aspirin [Aspirin 81 mg Chewable Tablet] 81 mg PO DAILY 12/02/16 Atorvastatin Calcium [Lipitor 80 mg Tablet] 80 mg PO QHS 12/02/16 Butalb/Acetaminophen/Caffeine [Fioricet 50-300-40 mg Capsule] 1 cap PO Q4HP PRN 12/02/16 Dexlansoprazole [Dexilant 60 mg Capsule] 60 mg PO QAM 12/02/16 Fluticasone/Salmeterol [Advair 250-50 Diskus 28 dose] 1 inh IH Q12 12/02/16 Furosemide [Lasix] 40 mg PO DAILY 12/02/16 Glimepiride [Amaryl 4 mg Tablet] 4 mg PO QAM 12/02/16 Insulin Aspart [Novolog Flexpen] 5 unit SUBCUT MEALS 12/02/16 Ipratropium/Albuterol Sulfate [Duoneb 3 ml Ampul] 3 ml NEB RTQID 12/02/16 Levothyroxine Sodium [Synthroid] 25 mcg PO DAILY 12/02/16 Levothyroxine Sodium [Synthroid] 200 mcg PO DAILY 12/02/16 Losartan Potassium [Cozaar 100 mg Tablet] 100 mg PO DAILY 12/02/16 Metformin HCl [Glucophage] 1,000 mg PO BIDBS 12/02/16 Metoprolol Succinate [Toprol Xl 50 mg Tab.sr] 50 mg PO DAILY 12/02/16 Roflumilast [Daliresp 500 mcg Tablet] 500 mcg PO DAILY 12/02/16 Sertraline HCl [Zoloft 50 mg Tablet] 50 mg PO DAILY 12/02/16 Tiotropium [place] [Spiriva Handihaler 18 mcg/dose (30 Dose)] 1 cap IH DAILY 07/20 Tizanidine HCl [Zanaflex 4 mg Tablet] 4 mg PO TID 12/02/16 Zolpidem Tartrate [Ambien 5 mg Tablet] 5 mg PO QHS 12/02/16 Azithromycin [Zithromax 250 mg Tablet] 250 mg PO DAILY #5 tablet 12/03/16 Dexamethasone [Dexpak] 1.5 mg PO DAILY #0 tab.ds.pk 12/03/16 Oxycodone HCl [Oxycodone HCl 10 MG Tablet] 10 mg PO Q8HP PRN #90 12/03/16 History of Present Illness History of Present Illness: BAIRON FU is a 71 year old female, she was admitted from the office into the hospital, she was seen in the office about 10 days ago when she came for evaluation of her symptoms including respiratory and flank pain.She Was prescribed Prednisone and antibiotic. She continues to be symptomatic with shortness of breath, wheezing, and back pain especially in the left costovertebral angle. She has multiple comorbid conditions including very severe chronic lung disease, cardiomyopathy, Pulmonary hypertension, liver cirrhosis, type 2 diabetes mellitus because of the multiple comorbid conditions and the fact that she continues to be, symptomatic she was admitted directly for management .CAT scan of the abdomen and pelvis with IV contrast was done showed liver with nodular contour worrisome for cirrhosis but no discrete liver mass, otherwise it was a negative study. CT chest without contrast was done it showed emphysematous changes. Mild compression of the superior endplate of the mid thoracic vertebra which was not present on the previous study Hospital Course Hospital Course: Patient was admitted for management of acute COPD exacerbation, she was treated with IV Solu-Medrol, bronchodilators and antibiotic with improvement in patient' s symptoms. There was complete resolution of the wheezing Physical Exam Vital Signs: Temp Pulse Resp BP Pulse Ox 98.4 F 90 20 94/52 L 93 12/03/16 16:05 12/03/16 16:06 12/03/16 16:06 12/03/16 16:10 12/03/16 16:06 Intake & Output 12/02/16 12/03/16 12/04/16 06:59 06:59 06:59 Intake Total 891 850 Output Total 800 650 Balance 91 200 Weight 83.6 kg General appearance: PRESENT: no acute distress Eye exam: PRESENT: PERRLA Respiratory exam: PRESENT: clear to auscultation benjamin Cardiovascular exam: PRESENT: +S1, +S2 GI/Abdominal exam: PRESENT: soft Neurological exam: PRESENT: alert, CN II-XII grossly intact Results Laboratory Results: 12/03/16 18:12 12/03/16 18:12 12/03/16 12/03/16 18:12 18:12 WBC 13.8 H RBC 3.95 Hgb 9.9 L Hct 31.5 L MCV 80 MCH 25.0 L MCHC 31.3 L RDW 15.8 H Plt Count 207 Seg Neutrophils % Not Reportable Lymphocytes % Not Reportable Monocytes % Not Reportable Eosinophils % Not Reportable Basophils % Not Reportable Absolute Neutrophils Not Reportable Absolute Lymphocytes Not Reportable Absolute Monocytes Not Reportable Absolute Eosinophils Not Reportable Absolute Basophils Not Reportable Sodium 140.5 Potassium 4.4 Chloride 107 Carbon Dioxide 20 L Anion Gap 14 BUN 28 H Creatinine 0.79 Est GFR ( Amer) > 60 Est GFR (Non-Af Amer) > 60 Glucose 175 H Calcium 9.9 Total Bilirubin 0.4 AST 27 ALT 37 Alkaline Phosphatase 102 Total Protein 6.7 Albumin 3.8 Impressions: Abdomen/Pelvis CT 12/02/16 00:00 IMPRESSION: No CT findings to explain history of flank pain. Right kidney intrarenal nonobstructive stones. Nodular appearing liver from cirrhosis Chest CT 12/02/16 00:00 IMPRESSION: Obstructive lung disease. No acute changes are identified. Other findings as noted above Chest X-Ray 12/02/16 00:00 IMPRESSION: Obstructive lung disease No definite acute infiltrates
[2016-12-03 20:18] VITALS: BP 93/36
== END 2016-12-03 21:00 | disposition home or self-care (01) ==
LOC: 3W 09:56
PROVIDERS: ADMIT Internal Medicine; ATTEND Internal Medicine
PROC: 3E0F7GC Introduction of Other Therapeutic Substance into Respiratory Tract, Via Natural or Artificial Opening (ICD-10-PCS; principal; 2016-12-02)
DX: J44.1 Chronic obstructive pulmonary disease with (acute) exacerbation (principal); I27.2 Other secondary pulmonary hypertension; E11.9 Type 2 diabetes mellitus without complications; K74.60 Unspecified cirrhosis of liver; I42.9 Cardiomyopathy, unspecified; N20.0 Calculus of kidney; I48.0 Paroxysmal atrial fibrillation; I73.9 Peripheral vascular disease, unspecified; K75.81 Nonalcoholic steatohepatitis (NASH); I25.2 Old myocardial infarction; R93.7 Abnormal findings on diagnostic imaging of other parts of musculoskeletal system; E03.9 Hypothyroidism, unspecified; I10 Essential (primary) hypertension; Z79.899 Other long term (current) drug therapy; Z79.82 Long term (current) use of aspirin; Z79.51 Long term (current) use of inhaled steroids; Z79.4 Long term (current) use of insulin; Z79.891 Long term (current) use of opiate analgesic; Z82.49 Family history of ischemic heart disease and other diseases of the circulatory system; Z87.891 Personal history of nicotine dependence
CPT/HCPCS: 36415 ×2; 82962 ×2; 85025; 85027; 80076; 80048; 80053; 81001; 71010; 71250; 74176; 94640 ×3; J3490 ×5; J1815; J2930 ×2; J1956 ×2; J7620 ×2; G0378; G0379

== ENCOUNTER → 2016-12-20 | Outpatient (CLI) | payer BC ==
--- NOTE | 2016-12-20 10:57 | WOMENS IMAGING REPORT ---
EXAM DESCRIPTION: BONE DENSITY HIP/SPINE COMPLETED DATE/TIME: 12/20/2016 9:40 am REASON FOR STUDY: OSTEOPOROSIS; M81.0 M81.0 AGE-RELATED OSTEOPOROSIS W/O CURRENT PATHOLOGICAL FRAC COMPARISON: None. TECHNIQUE: Dual-Energy X-ray Absorptiometry (DEXA) of the AP Spine and Hip. LIMITATIONS: None. FINDINGS: LUMBAR SPINE: The bone mineral density (BMD) measured from L1-L4 in the AP projection correlates with a T-score of -3.0, which is osteoporosis as defined by the World Health Organization. HIP: The bone mineral density (BMD) measured in the left hip correlates with a T-score of -3.3, which is o steoporosis as defined by the World Health Organization. IMPRESSION: 1. LUMBAR SPINE: Osteoporosis 2. HIP: Osteoporosis COMMENT: The World Health Organization defines low BMD as follows: T-score: Normal: Greater than -1.0 Osteopenia: Between -1.0 and -2.5 Osteoporosis: Less than -2.5 without fractures Established osteoporosis: Less than -2.5 with fractures In general, you may wish to consider: Diagnosis Treatment Follow-up DEXA Normal BMD Prevention 2-3 years Osteopenia Prevention/Therapy 1-2 years Osteoporosis Therapy Yearly TECHNICAL DOCUMENTATION: JOB ID: [id number] [employer]- All Rights Reserved
== END ==
LOC: WI 08:06
PROVIDERS: ATTEND Internal Medicine
DX: M81.0 Age-related osteoporosis without current pathological fracture (principal)
CPT/HCPCS: 77080

== ENCOUNTER 2017-01-17 12:25 | Inpatient (IN) | payer BC ==
[2017-01-17 13:39] LABS: HEMOGLOBIN 10.9 g/dL (12.0-15.5); HGB HCT DIFFERENCE -2.3; MEAN CORPUSCULAR HEMOGLOBIN 23.7 pg (27.0-33.4); MEAN CORPUSCULAR HGB CONC 31.2 g/dL (32.0-36.0); MEAN CORPUSCULAR VOLUME 76 fl (80-97); RED BLOOD COUNT 4.61 10^6/uL (3.72-5.28); RED CELL DISTRIBUTION WIDTH 17.4 % (11.5-14.0); WHITE BLOOD COUNT 8.3 10^3/uL (4.0-10.5)
[2017-01-17 13:56] LABS: ANION GAP 14 (5-19); BLOOD UREA NITROGEN 12 mg/dL (7-20); CARBON DIOXIDE 28 mmol/L (22-30); CHLORIDE 99 mmol/L (98-107); CREATININE RESULT 0.79 mg/dL (0.52-1.25); GLUCOSE 219 mg/dL (75-110); POTASSIUM 3.4 mmol/L (3.6-5.0); SODIUM 140.5 mmol/L (137-145)
[2017-01-17 14:05] LABS: ARTERIAL BLOOD BASE EXCESS 5.1 mmol/L; ARTERIAL BLOOD O2 SATURATION 95.6 % (94-98)
[2017-01-17] MEDS ORDERED: KETOROLAC TROMETHAMINE INJ/PF 30 MG/1 ML SDV IV PRN (14:11)
[2017-01-17 14:25] LABS: THYROID STIMULATING HORMONE 5.82 uIU/mL (0.47-4.68)
[2017-01-17] MEDS ORDERED: IPRATROPIUM/ALBUTEROL 0.5-2.5 MG/3 ML AMPUL NEB ONE (14:43)
[2017-01-17] MEDS ORDERED: LEVOFLOXACIN 750 MG/D5W RTU 750 MG/150 ML RTUPB IV ONE (15:00)
--- NOTE | 2017-01-17 15:10 | RADIOLOGY REPORT (SQ) ---
EXAM DESCRIPTION: CT CHEST WITHOUT COMPLETED DATE/TIME: 01/17/2017 2:44 pm REASON FOR STUDY: acute hypoxemia respiratory failure COMPARISON: CT chest exams 12/02/2016, 07/26/2016, 02/28/2009 TECHNIQUE: CT scan performed of the chest without intravenous contrast. Images reviewed with lung, soft tissue and bone windows. Reconstructed coronal and sagittal MPR images reviewed. All images st ored on PACS. All CT scanners at this facility use dose modulation, iterative reconstruction, and/or weight based d osing when appropriate to reduce radiation dose to as low as reasonably achievable (ALARA). [facility]: Dose Right [facility]: CareDose [facility]: Dose Right [facility]: Teradose 4D [facility]: Smart [employer] RADIATION DOSE: Up-to-date CT equipment and radiation dose reduction techniques were employed. CTDIv ol: 9.0 mGy. DLP: 342 mGy-cm. mGy. LIMITATIONS: No technical limitations. FINDINGS: LUNGS AND PLEURA: Obstructive lung disease in both upper lobes. There is minimal bandlike scarring in the posterior right and posterior left upper lobes. No pulmonary nodules. No acute infiltrates. No pleural effusions. No pneumothorax. HILAR AND MEDIASTINAL STRUCTURES: No identified masses or abnormal nodes. No obvious aneurysm. HEART AND VASCULAR STRUCTURES: No aneurysm. No pericardial effusion. UPPER ABDOMEN: No significant findings. Limited exam. THYROID AND OTHER SOFT TISSUES: No masses. No adenopathy. BONES: Subacute mid thoracic compression deformities are present at T7, T8, and T9 with less than 25% loss of height. HARDWARE: None in the chest. OTHER: No other significant findings. IMPRESSION: Obstructive lung disease with posterior upper lobe scarring. No focal infiltrates. Subacute T7, T8, and T9 mid thoracic compression deformities. TECHNICAL DOCUMENTATION: JOB ID: [id number] Quality ID # [id number]: Final reports with documentation of one or more dose reduction techniques (e.g., Au tomated exposure control, adjustment of the mA and/or kV according to patient size, use of iterative reconstruction technique) 2010 [employer]- All Rights Reserved
[2017-01-17] MEDS: METHYLPREDNISOLONE INJ 125 MG/2 ML SDV IV SCH (17:34)
[2017-01-17] MEDS ORDERED: CHLORPHENIRAMINE MALEATE 4 MG TABLET PO PRN (18:10)
[2017-01-17] MEDS ORDERED: GLUCAGON,HUMAN RECOMB 1 MG INJ IM PRN (18:13)
[2017-01-17] MEDS ORDERED: DEXTROSE 40% GEL 15 GM TUBE X 2 PO PRN (18:13)
[2017-01-17] MEDS ORDERED: DEXTROSE 50%-WATER SYRINGE 12.5 GM/25 ML DOSE IV PRN (18:13)
[2017-01-17] MEDS ORDERED: DEXTROSE 50%-WATER SYRINGE 25 GM/50 ML DOSE IV PRN (18:13)
[2017-01-17] MEDS ORDERED: DEXTROSE 40% GEL 15 GM TUBE PO PRN (18:13)
--- NOTE | 2017-01-17 18:35 | PDOC H&P ---
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 She was supposed to follow with pain specialist for kyphoplasty of the thoracic spine today. She has severe pain affecting the thoracic spine and I spoke to the pain specialist last week Tuesday and she was kind enough to schedule her for appointment today to be seen for kyphoplasty of the thoracic spine, she has mid thoracic compression fracture of T7-T9, bone density that was done outpatient confirmedthats she has osteoporosis but rather than keep the appointment with the pain specialist she came to the office today because she could not breathe. CT chest without contrast was done it showed obstructive lung disease in both upper lobes there is minimal bandlike scarring in the posterior right and possible left upper lobes there is no acute infiltrate no pleural effusion no pneumothorax there is no obvious masses. The blood gas that was done showed metabolic alkalosis ABG on room air showed pH 7.47 PO2 74 bicarbonate 29 CO2 30.5 consistent with metabolic alkalosis the chemistries show hypokalemia. Past Medical History Cardiac Medical History: Reports: Atrial Fibrillation, Coronary Artery Disease, Myocardial Infarction - I MONTH , Hyperlipidema, Hypertension, Other - Pulmonary hypertension Pulmonary Medical History: Reports: Asthma - INHALER, Chronic Obstructive Pulmonary Disease (COPD), Pneumonia Endocrine Medical History: Reports: Diabetes Mellitus Type 2, Hypothyroidism, Other - Osteoporosis GI Medical History: Reports: Cirrhosis Musculoskeltal Medical History: Reports: Arthritis, Other - Chronic pain syndrome due to degenerative arthritis affecting multiple joints, osteoporotic fracture of thoracic spine. Psychiatric Medical History: Reports: Depression Hematology: Reports: Anemia Past Surgical History Past Surgical History: Reports: Cardiac Catheterization Social History Smoking Status: Former Smoker Last Time Smoked: 07/04/16 Frequency of Alcohol Use: None Hx Recreational Drug Use: No Drugs: None Hx Prescription Drug Abuse: No Family History Family History: CAD, CVA, DM, Hyperlipidemia, Hypertension, Malignancy, Thyroid Disfunction Parental Family History Reviewed: Yes Children Family History Reviewed: Yes Sibling(s) Family History Reviewed.: Yes Medication/Allergy Home Medications: Aspirin [Aspirin 81 mg Chewable Tablet] 81 mg PO DAILY 01/17/17 Atorvastatin Calcium [Lipitor 80 mg Tablet] 80 mg PO QHS 01/17/17 Chlorpheniramine Maleate [Pharbechlor 4 mg Tablet] 4 mg PO Q6HP PRN 01/17/17 Cyclobenzaprine HCl [Flexeril 10 mg Tablet] 10 mg PO TIDP PRN 01/17/17 Furosemide [Lasix] 40 mg PO DAILY 01/17/17 Glimepiride [Amaryl 4 mg Tablet] 4 mg PO [id number] 01/17/17 Ipratropium/Albuterol Sulfate [Duoneb 3 ml Ampul] 3 ml NEB RTQ6 01/17/17 Levothyroxine Sodium [Synthroid 0.025 mg Tablet] 25 mcg PO DAILY 01/17/17 Levothyroxine Sodium [Synthroid] 200 mcg PO DAILY 01/17/17 Losartan Potassium [Cozaar 100 mg Tablet] 100 mg PO DAILY 01/17/17 Metformin HCl [Glucophage] 1,000 mg PO BIDBS 01/17/17 Sertraline HCl [Zoloft 50 mg Tablet] 50 mg PO DAILY 01/17/17 Tiotropium [place] [Spiriva Handihaler 18 mcg/dose (30 Dose)] 1 cap IH DAILY Allergies/Adverse Reactions: No Known Allergies Allergy (Verified 09/09/16 09:31) Review of Systems Constitutional: ABSENT: chills, fever(s), headache(s), weight gain, weight loss Eyes: ABSENT: visual disturbances Ears: ABSENT: hearing changes Cardiovascular: PRESENT: chest pain, dyspnea on exertion Respiratory: ABSENT: cough, hemoptysis Gastrointestinal: ABSENT: abdominal pain, constipation, diarrhea, hematemesis, hematochezia, nausea, vomiting Genitourinary: ABSENT: dysuria, hematuria Musculoskeletal: PRESENT: back pain, deformity Integumentary: ABSENT: rash, wounds Neurological: ABSENT: abnormal gait, abnormal speech, confusion, dizziness, focal weakness, syncope Psychiatric: ABSENT: anxiety, depression, homidical ideation, suicidal ideation Endocrine: ABSENT: cold intolerance, heat intolerance, menstrual abnormalities, polydipsia, polyuria Hematologic/Lymphatic: ABSENT: easy bleeding, easy bruising, lymphadenopathy Physical Exam Vital Signs: Temp Pulse Resp BP Pulse Ox 98.0 F 95 20 126/72 H 96 01/17/17 16:34 01/17/17 16:34 01/17/17 16:34 01/17/17 16:34 01/17/17 16:34 Intake & Output 01/16/17 01/17/17 01/18/17 06:59 06:59 06:59 Intake Total 200 Balance 200 Weight 81.5 kg General appearance: PRESENT: mild distress Head exam: PRESENT: atraumatic, normocephalic Eye exam: PRESENT: conjunctiva pink, EOMI, PERRLA. ABSENT: scleral icterus Ear exam: PRESENT: normal external ear exam Mouth exam: PRESENT: moist, tongue midline Neck exam: PRESENT: full ROM Respiratory exam: PRESENT: wheezes Cardiovascular exam: PRESENT: RRR, +S1, +S2 Pulses: PRESENT: normal dorsalis pedis pul, +2 pedal pulses bilateral Vascular exam: PRESENT: normal capillary refill GI/Abdominal exam: PRESENT: normal bowel sounds, soft Rectal exam: PRESENT: deferred Neurological exam: PRESENT: alert, awake, oriented to person, oriented to place , oriented to time, oriented to situation, CN II-XII grossly intact Psychiatric exam: PRESENT: appropriate affect, normal mood Skin exam: PRESENT: dry, intact, warm Results Laboratory Results: 01/17/17 13:25 01/17/17 13:25 01/17/17 01/17/17 01/17/17 13:25 13:25 13:25 WBC 8.3 RBC 4.61 Hgb 10.9 L Hct 35.0 L MCV 76 L MCH 23.7 L MCHC 31.2 L RDW 17.4 H Plt Count 191 Carbonic Acid HCO3/H2CO3 Ratio ABG pH ABG pCO2 ABG pO2 ABG HCO3 ABG O2 Saturation ABG Base Excess FiO2 Sodium 140.5 Potassium 3.4 L Chloride 99 Carbon Dioxide 28 Anion Gap 14 BUN 12 Creatinine 0.79 Est GFR ( Amer) > 60 Est GFR (Non-Af Amer) > 60 Glucose 219 H Calcium 9.0 TSH 5.82 H Free T4 1.20 01/17/17 13:53 WBC RBC Hgb Hct MCV MCH MCHC RDW Plt Count Carbonic Acid 1.25 HCO3/H2CO3 Ratio 23:1 ABG pH 7.47 H ABG pCO2 41.5 ABG pO2 74.1 L ABG HCO3 29.3 H ABG O2 Saturation 95.6 ABG Base Excess 5.1 FiO2 21% Sodium Potassium Chloride Carbon Dioxide Anion Gap BUN Creatinine Est GFR ( Amer) Est GFR (Non-Af Amer) Glucose Calcium TSH Free T4 Impressions: Chest CT 01/17/17 13:10 IMPRESSION: Obstructive lung disease with posterior upper lobe scarring. No focal infiltrates. Subacute T7, T8, and T9 mid thoracic compression deformities. Assessment & Plan - Diagnosis (1) Chronic obstructive asthma with acute exacerbation Is this a current diagnosis for this admission?: YesPlan: Patient came to the office today for evaluation of shortness of breath due to COPD acute exacerbation (2) Metabolic alkalosis Is this a current diagnosis for this admission?: YesPlan: She has metabolic alkalosis associated with hypokalemia, the potassium will be corrected (3) Diabetes mellitus type 2 in nonobese Is this a current diagnosis for this admission?: Yes (4) Osteoporotic compression fracture of spine Qualifiers: Encounter type: initial encounter Qualified Code(s): M80.88XA - Other osteoporosis with current pathological fracture, vertebra(e), initial encounter for fracture Is this a current diagnosis for this admission?: YesPlan: MRI of the thoracic spine will be ordered, consultation will be requested from Dr. 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
[2017-01-17] MEDS ORDERED: POTASSIUM CHLORIDE 10 MEQ TABLET.SA PO ONE (19:00)
--- NOTE | 2017-01-17 19:52 | RADIOLOGY REPORT (SQ) ---
EXAM DESCRIPTION: MRI THORACIC SPINE WITHOUT COMPLETED DATE/TIME: 01/17/2017 7:34 pm REASON FOR STUDY: compression fracture of thoracic spine COMPARISON: CT scan 01/17/2017 TECHNIQUE: Sagittal and Axial imaging includes T1, T2, STIR and gradient echo sequences. LIMITATIONS: Motion FINDINGS: LOCALIZER: No worrisome findings. ALIGNMENT: Normal. VERTEBRAE: Generalize marrow edema with slight compression deformity of T7. Extension into the pedic les. Similar findings at T8. The T9 there is approximately 20% anterior wedge compression fracture without clearcut pedicular extension. Minimal compression deformity of T11. BONE MARROW: Normal. No marrow replacement or reactive changes. HARDWARE: None in the spine. CORD: Normal in size and signal intensity. SOFT TISSUES: No soft tissue masses. THORACIC DISCS T1-T12: No significant spinal stenosis or exit foraminal stenosis. LOWER CERVICAL: Incompletely imaged. No significant spinal stenosis or exit foraminal stenosis. UPPER LUMBAR: Incompletely imaged. No significant spinal stenosis or exit foraminal stenosis. OTHER: No other significant finding. IMPRESSION: Slight compression deformities of T7 and T8 with generalize marrow edema extension the p edicles. Worrisome for pathologic fractures. At T9 approximately 20% anterior wedge compression fra cture without clearcut particular extension. Minimal compression deformity of T11. COMMENT: Findings worrisome for pathologic fractures. Consider bone scan. TECHNICAL DOCUMENTATION: JOB ID: [id number] All Rights Reserved
[2017-01-17] MEDS ORDERED: ENOXAPARIN SODIUM INJ 40 MG/0.4 ML DISP.SYRIN SUBCUT ONE (20:00)
[2017-01-17] MEDS ORDERED: IPRATROPIUM/ALBUTEROL 0.5-2.5 MG/3 ML AMPUL NEB SCH ×2 (20:00)
[2017-01-17] MEDS: IPRATROPIUM/ALBUTEROL 0.5-2.5 MG/3 ML AMPUL NEB SCH (20:18)
[2017-01-17 21:15] LABS: THYROID STIMULATING HORMONE 5.42 uIU/mL (0.47-4.68)
[2017-01-17] MEDS: ATORVASTATIN CALCIUM 80 MG TABLET PO SCH (21:22)
[2017-01-17 22:00] LABS: AMORPHOUS SEDIMENT,URINE TRACE /HPF; APPEARANCE,URINE SLIGHTLY-CLOUDY; BILIRUBIN,URINE NEGATIVE (NEGATIVE); GLUCOSE, URINE NEGATIVE (NEGATIVE); KETONES,URINE NEGATIVE (NEGATIVE); LEUKOCYTE ESTERASE,URINE NEGATIVE (NEGATIVE); NITRITE,URINE NEGATIVE (NEGATIVE); PROTEIN,URINE NEGATIVE (NEGATIVE); URINE SPECIFIC GRAVITY 1.025
[2017-01-17 22:13] LABS: URINE BARBITURATES SCREEN NEGATIVE; URINE METHADONE SCREEN NEGATIVE; URINE OPIATES LOW NEGATIVE; URINE PHENCYCLIDINE SCREEN NEGATIVE
[2017-01-18] MEDS: IPRATROPIUM/ALBUTEROL 0.5-2.5 MG/3 ML AMPUL NEB SCH ×7 (00:18→23:57)
[2017-01-18] MEDS: METHYLPREDNISOLONE INJ 125 MG/2 ML SDV IV SCH ×3 (02:09→17:32)
--- NOTE | 2017-01-18 07:46 | EKG REPORT ---
SEVERITY:- BORDERLINE ECG - SINUS TACHYCARDIA BORDERLINE LEFT AXIS DEVIATION BORDERLINE T WAVE ABNORMALITIES : Confirmed by: Yaz Sanders 18-Jan-2017 07:46:02
[2017-01-18] MEDS: METFORMIN HCL 500 MG TABLET PO SCH ×2 (08:49→16:25)
[2017-01-18] MEDS: GLIMEPIRIDE 4 MG TABLET PO SCH (08:49)
[2017-01-18] MEDS: INSULIN LISPRO 100 UNIT/ML 3 ML VIAL SUBCUT PRN ×4 (08:49→22:43)
[2017-01-18] MEDS: CYCLOBENZAPRINE HCL 10 MG TABLET PO PRN (08:53)
[2017-01-18] MEDS: TIOTROPIUM BROMIDE DPI 5 CAP/KIT (18 MCG/CAP) IH SCH (11:00)
[2017-01-18] MEDS: ENOXAPARIN SODIUM INJ 40 MG/0.4 ML DISP.SYRIN SUBCUT SCH (11:02)
[2017-01-18] MEDS: LOSARTAN POTASSIUM 50 MG TABLET PO SCH (11:03)
[2017-01-18] MEDS: ASPIRIN 81 MG TABLET, CHEWABLE PO SCH (11:04)
[2017-01-18] MEDS: LEVOTHYROXINE SODIUM 0.1 MG TABLET PO SCH (11:04)
[2017-01-18] MEDS: SERTRALINE HCL 50 MG TABLET PO SCH (11:05)
[2017-01-18] MEDS: FUROSEMIDE 40 MG TABLET PO SCH (11:05)
[2017-01-18] MEDS: LEVOFLOXACIN 750 MG/D5W RTU 750 MG/150 ML RTUPB IV SCH (11:06)
[2017-01-18] MEDS: LEVOTHYROXINE SODIUM 0.025 MG TABLET PO SCH (11:06)
[2017-01-18] MEDS: OXYCODONE HCL IR 5 MG TABLET PO PRN ×2 (12:30→17:54)
--- NOTE | 2017-01-18 13:39 | CONSULTATION REPORT E ---
Consultation Report NAME: BAIRON FU : 1945 AGE: 71Y DATE: 01/18/2017 ROOM: 317 A TO: DAWIT NERI M.D. FROM: ROWENA CLEANING M.D. Requesting Physician REASON FOR CONSULTATION: Thoracic compression fracture. CHIEF COMPLAINT: Mid back pain. HISTORY OF PRESENT ILLNESS: The patient is a 71-year-old female with a history of chronic obstructive pulmonary disease, osteoporosis, SOTO, diabetes and hypothyroidism. The patient notes that in November of this year she was working in her yard using a rake to care for her son's grave site. She had sudden onset of mid back pain which was very severe in nature. She states that since this time in November she has been actually unable to walk secondary to severe pain in her back which is also causing her increasing shortness of breath and difficulty taking deep breaths. The patient notes that the pain is mostly localized to one spot in the mid back with some radiation to the left flank. The pain is quite sharp in nature. Pain is improved with lying still and pain is worse with any sort of movement at all. Walking is excruciating. She has been using oxycodone 15 mg p.o. every 4 hours p.r.n. pain, which is somewhat helpful but still does not help with activities. She was referred to be seen in my clinic yesterday but because of worsening shortness of breath was admitted to the hospital. At that point she notably had been having a flare of her COPD. PAST MEDICAL HISTORY: 1. History of atrial fibrillation. 2. Coronary artery disease. 3. Hyperlipidemia. 4. Hypertension. 5. COPD. 6. Asthma. 7. Diabetes. 8. Hypothyroidism. 9. Osteoporosis. 10. Nonalcoholic hepatitis. 11. Arthritis. 12. Chronic pain due to degenerative arthritis. 13. Depression. 14. Anemia history. PAST SURGICAL HISTORY: History of cardiac catheterization. FAMILY HISTORY: Coronary artery disease, history of stroke, diabetes, hyperlipidemia, hypertension, malignancy and thyroid dysfunction. SOCIAL HISTORY: The patient is a former smoker but quit in July of 2016. She denies alcohol use or recreational drug use. She is . She notes that she has teenagers in the home. HOME MEDICATIONS: 1. Aspirin 81 mg p.o. daily. 2. Atorvastatin 80 mg p.o. at bedtime. 3. Pharbechlor 4 mg p.o. every 6 hours p.r.n. 4. Cyclobenzaprine 10 mg p.o. t.i.d. p.r.n. 5. Lasix 40 mg p.o. daily. 6. Amaryl 4 mg p.o. with breakfast. 7. Ipratropium albuterol 3 mL nebulizer inhaled every 6 hours. 8. Synthroid 200 mcg p.o. daily plus 25 mcg p.o. daily. 9. Losartan 100 mg p.o. daily. 10. Metformin 1000 mg p.o. b.i.d. 11. Sertraline 50 mg p.o. daily. 12. Ipratropium bromide 1 cap inhaled daily. ALLERGIES: No known drug allergies. REVIEW OF SYSTEMS: The patient denies any fever, chills, weight gain or weight loss, night sweats. The patient denies any overt nausea, vomiting, diarrhea or gastrointestinal symptoms. The patient does endorse shortness of breath, pain with deep breathing and cough. She denies any trouble with urination. She does endorse back pain and flank pain. She denies any bleeding in the urine. She denies any easy bleeding or bruising. Remainder of review of systems are negative. PHYSICAL EXAMINATION: VITAL SIGNS: Temperature 98.5, pulse 95, blood pressure 126/71, respirations 18, saturation 91% on room air. Pain 5/5 on numeric rating scale. GENERAL: The patient is a very pleasant female. She is lying on her side in the room today. She is in no acute distress but winces quite a bit with any movement. She is well developed, well nourished, alert and oriented x4. HEENT: Head is normocephalic, atraumatic. CARDIOVASCULAR: Pulse is regular. LUNGS: Respirations even, unlabored work of breathing. ABDOMEN: Soft, nontender, nondistended. MUSCULOSKELETAL: The patient has some midline tenderness noted in the lower thoracic spine today and mild left paravertebral muscular tenderness on palpation. There is also some extension of tenderness into the lumbar spine. Notably, the areas just at the base of the shoulder blades are actually not very tender to palpation. NEUROLOGIC: Moves all extremities x4. No overt focal neurologic deficits. PSYCHIATRIC: Normal and appropriate mood and affect. LABORATORY STUDIES: Normal white count. Urinalysis negative for infection, collected 01/17/2017 at 2130. Thoracic spine MRI performed 01/17/2017: Compression deformities of T7 and T8 with generalized marrow edema extending to the pedicles concerning for pathologic fracture of T9. There is a 20% anterior wedge compression fracture without clear-cut extension and minimal compression noted at T11. CT scan of the chest performed 01/17/2017 demonstrated obstructive lung disease with posterior upper lobe scarring with no focal infiltrate, subacute T7, T8 and T9 mid thoracic compression deformities. ASSESSMENT: Vertebral compression fractures of the T7, T8, and T9 vertebral bodies. ASSESSMENT AND PLAN: The patient is a 71-year-old female with recent compression fractures of the thoracic vertebral bodies. On examination, notably, the pain does seem to be quite a bit lower than where I would expect given where the compression deformities are. I have discussed this with her at length. I have recommended that we actually proceed with bone scan to ensure first of all that there are no other worrisome areas concerning for pathology other than osteoporosis. I am also hopeful to lawrence any additional information about lower areas that may light up on bone scan. At this point my rough plan would be to proceed with T8-T9 kyphoplasty pending bone scan outcome. We will work to get this scheduled as soon as possible, also pending that the patient does not have any active infection. She is currently on Levaquin and I will touch base with her admitting physician to ensure that an appropriate course is completed prior to undertaking the procedure. Thank you very much for this interesting consultation. I will continue to follow along with this patient during her course. DICTATING PHYSICIAN: DAWIT NERI M.D. [id number] PHY#: [id number] ID: [id number] JOB#: [id number] ACCT: [id number] cc:DAWIT NERI M.D. >
--- NOTE | 2017-01-18 19:49 | PDOC PROGRESS REPORT ---
Subjective Progress Note for:: 01/18/17 Subjective:: Patient was seen by the bedside, she continues to wheeze, she is very short of breath on very minimal exertion, she also complained of passing black stools suspicious for GI bleed, she has a history of liver cirrhosis, she may need EGD to rule out varices but the issue now is to stabilize her from respiratory standpoint. She had MRI of the thoracic spine today, pathologic fracture was suspected, bone scan was recommended by the radiologist Physical Exam Vital Signs: Temp Pulse Resp BP Pulse Ox 98.0 F 110 H 20 132/65 H 94 01/18/17 16:06 01/18/17 16:59 01/18/17 16:59 01/18/17 16:06 01/18/17 16:59 Intake & Output 01/17/17 01/18/17 01/19/17 06:59 06:59 06:59 Intake Total 1170 932 Output Total 450 550 Balance 720 382 Weight 83.2 kg 83.2 kg General appearance: PRESENT: severe distress Head exam: PRESENT: atraumatic, normocephalic Respiratory exam: PRESENT: wheezes Cardiovascular exam: PRESENT: +S1, +S2 GI/Abdominal exam: PRESENT: soft Neurological exam: PRESENT: alert, CN II-XII grossly intact Results Laboratory Results: 01/17/17 13:25 01/17/17 13:25 01/17/17 01/17/17 20:09 21:30 TSH 5.42 H Free T4 1.27 Urine Color YELLOW Urine Appearance SLIGHTLY-CLOUDY Urine pH 5.0 Ur Specific [place] 1.025 Urine Protein NEGATIVE Urine Glucose (UA) NEGATIVE Urine Ketones NEGATIVE Urine Blood NEGATIVE Urine Nitrite NEGATIVE Ur Leukocyte Esterase NEGATIVE Urine WBC (Auto) 3 Urine RBC (Auto) 0 01/17/17 01/17/17 01/17/17 20:09 20:09 20:09 Creatine Kinase 52 Troponin I < 0.012 NT-Pro-B Natriuret Pep 63 01/18/17 01/18/17 01/18/17 02:06 02:06 07:38 Creatine Kinase 53 39 Troponin I < 0.012 NT-Pro-B Natriuret Pep 01/18/17 07:38 Creatine Kinase Troponin I < 0.012 NT-Pro-B Natriuret Pep Impressions: Thoracic Spine MRI 01/17/17 00:00 IMPRESSION: Slight compression deformities of T7 and T8 with generalize marrow edema extension the pedicles. Worrisome for pathologic fractures. At T9 approximately 20% anterior wedge compression fracture without clearcut particular extension. Minimal compression deformity of T11. Chest CT 01/17/17 13:10 IMPRESSION: Obstructive lung disease with posterior upper lobe scarring. No focal infiltrates. Subacute T7, T8, and T9 mid thoracic compression deformities. Assessment & Plan - Diagnosis (1) Chronic obstructive asthma with acute exacerbation Is this a current diagnosis for this admission?: YesPlan: She will continue IV Solu-Medrol, bronchodilators and other treatment, (2) Metabolic alkalosis Is this a current diagnosis for this admission?: Yes (3) Diabetes mellitus type 2 in nonobese Is this a current diagnosis for this admission?: Yes (4) Osteoporotic compression fracture of spine Qualifiers: Encounter type: initial encounter Qualified Code(s): M80.88XA - Other osteoporosis with current pathological fracture, vertebra(e), initial encounter for fracture Is this a current diagnosis for this admission?: YesPlan: MRI of the thoracic spine was done, pathologic fracture was suspected bone scan are recommended (5) Pulmonary hypertension Is this a current diagnosis for this admission?: Yes (6) 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
[2017-01-18 20:54] LABS: HEMATOCRIT 33.5 % (36.0-47.0); HEMOGLOBIN 10.2 g/dL (12.0-15.5); HGB HCT DIFFERENCE -2.9; MEAN CORPUSCULAR HEMOGLOBIN 23.1 pg (27.0-33.4); MEAN CORPUSCULAR HGB CONC 30.4 g/dL (32.0-36.0); MEAN CORPUSCULAR VOLUME 76 fl (80-97); RED BLOOD COUNT 4.41 10^6/uL (3.72-5.28); RED CELL DISTRIBUTION WIDTH 17.4 % (11.5-14.0)
[2017-01-18 21:00] LABS: WHITE BLOOD COUNT 18.9 10^3/uL (4.0-10.5)
[2017-01-18 21:08] LABS: BLOOD UREA NITROGEN 25 mg/dL (7-20); CALCIUM 9.9 mg/dL (8.4-10.2); CREATININE RESULT 1.25 mg/dL (0.52-1.25); GLUCOSE 202 mg/dL (75-110)
[2017-01-18 21:09] LABS: ALANINE AMINOTRANSFERASE 48 U/L (9-52); ALBUMIN 4.3 g/dL (3.5-5.0); ALKALINE PHOSPHATASE 106 U/L (38-126); ASPARTATE AMINO TRANSFERASE 38 U/L (14-36); BILIRUBIN,DIRECT 0.4 mg/dL (0.0-0.4); BILIRUBIN,TOTAL 0.5 mg/dL (0.2-1.3); TOTAL PROTEIN 7.3 g/dL (6.3-8.2)
[2017-01-18 21:10] LABS: BAND NEUTROPHILS % (MANUAL) 1 % (3-5); BASOPHILS % (MANUAL) 0 % (0-2); EOSINOPHILS % (MANUAL) 0 % (0-6); LYMPHOCYTES % (MANUAL) 5 % (13-45); TOTAL CELLS COUNTED 100
[2017-01-18 21:11] LABS: ANISOCYTOSIS 2+; HYPOCHROMASIA 2+; MICROCYTOSIS SLIGHT; POLYCHROMASIA 1+
[2017-01-18 21:17] LABS: CARBON DIOXIDE 20 mmol/L (22-30); CHLORIDE 100 mmol/L (98-107); SODIUM 141.1 mmol/L (137-145)
[2017-01-18 21:25] LABS: ANION GAP 21 (5-19)
[2017-01-18] MEDS: ATORVASTATIN CALCIUM 80 MG TABLET PO SCH (22:30)
[2017-01-19] MEDS: METHYLPREDNISOLONE INJ 125 MG/2 ML SDV IV SCH ×3 (03:40→18:01)
[2017-01-19] MEDS: IPRATROPIUM/ALBUTEROL 0.5-2.5 MG/3 ML AMPUL NEB SCH ×2 (04:41→08:17)
[2017-01-19 07:24] LABS: ALANINE AMINOTRANSFERASE 41 U/L (9-52); ALBUMIN 4.1 g/dL (3.5-5.0); ALKALINE PHOSPHATASE 100 U/L (38-126); AMYLASE 34 U/L (30-110); ASPARTATE AMINO TRANSFERASE 32 U/L (14-36); BILIRUBIN,DIRECT 0.4 mg/dL (0.0-0.4); BILIRUBIN,TOTAL 0.4 mg/dL (0.2-1.3); BLOOD UREA NITROGEN 37 mg/dL (7-20); CALCIUM 9.7 mg/dL (8.4-10.2); CREATININE RESULT 1.12 mg/dL (0.52-1.25); GLUCOSE 225 mg/dL (75-110); LIPASE 53.5 U/L (23-300); MAGNESIUM 1.6 mg/dL (1.6-2.3); PHOSPHORUS 4.8 mg/dL (2.5-4.5); TOTAL PROTEIN 6.9 g/dL (6.3-8.2)
[2017-01-19 07:31] LABS: HEMATOCRIT 32.4 % (36.0-47.0); HGB HCT DIFFERENCE -2.4; MEAN CORPUSCULAR HEMOGLOBIN 23.4 pg (27.0-33.4); MEAN CORPUSCULAR HGB CONC 30.7 g/dL (32.0-36.0); MEAN CORPUSCULAR VOLUME 76 fl (80-97); RED BLOOD COUNT 4.26 10^6/uL (3.72-5.28); RED CELL DISTRIBUTION WIDTH 17.5 % (11.5-14.0)
[2017-01-19 07:32] LABS: ANION GAP 19 (5-19); CARBON DIOXIDE 18 mmol/L (22-30); CHLORIDE 106 mmol/L (98-107); SODIUM 143.3 mmol/L (137-145)
[2017-01-19 07:52] LABS: ANISOCYTOSIS 2+; BASOPHILS % (MANUAL) 0 % (0-2); EOSINOPHILS % (MANUAL) 0 % (0-6); LYMPHOCYTES % (MANUAL) 6 % (13-45); MICROCYTOSIS SLIGHT; TOTAL CELLS COUNTED 100
[2017-01-19 07:53] LABS: HYPOCHROMASIA SLIGHT; POLYCHROMASIA SLIGHT
[2017-01-19] MEDS: GLIMEPIRIDE 4 MG TABLET PO SCH (08:28)
[2017-01-19] MEDS: METFORMIN HCL 500 MG TABLET PO SCH ×2 (08:28→16:19)
[2017-01-19] MEDS: INSULIN LISPRO 100 UNIT/ML 3 ML VIAL SUBCUT PRN ×4 (08:28→22:14)
[2017-01-19] MEDS: OXYCODONE HCL IR 5 MG TABLET PO PRN ×2 (08:32→14:38)
[2017-01-19] MEDS: LEVALBUTEROL HCL NEB 1.25 MG/3 ML AMPUL NEB PRN (09:01)
--- NOTE | 2017-01-19 09:10 | XCELERA REPORT ---
[address] [address] Transthoracic Echocardiogram Report Name: BAIRON FU Age: 71 yrs Gender: Female : 1945 Patient Status: Inpatient Patient Location: [id number]\S\317\S\A Study Date: 01/18/2017 09:24 AM Height: 64 in Weight: 179 lb BSA: 1.9 m2 Procedure: A complete two-dimensional transthoracic echocardiogram was performed (2D, M-mode, spectral and color flow Doppler). The study was technically adequate with some images being suboptimal in quality. Reason For Study: respiratory failural Ordering Physician: ROWENA CLEANING Performed By: Flor Chamberlain Interpretation Summary The left ventricular ejection fraction is normal. There is mild concentric left ventricular hypertrophy. The left ventricle is grossly normal size. Doppler measurements suggest pseudonormalized left ventricular relaxation, which is associated with grade II/IV or mild to moderate diastolic dysfunction Wall motion cannot be accurately commented on, but no definite regional wall motion abnormalities noted. The right ventricular systolic function is normal. The right atrium is normal. The left atrium is mildly dilated. There is a trace amount of mitral regurgitation There is no mitral valve stenosis. No aortic regurgitation is present. There is no aortic valve stenosis There is a trace to mild amount of tricuspid regurgitation There is mild pulmonary hypertension by echo Right ventricular systolic pressure is estimated to be elevated at 30- 40mmHg. The aortic root is not well visualized. The inferior vena cava was not well visualized Minimal pericardial effusion. MMode/2D Measurements \T\ Calculations RVDd: 3.5 cm LVIDd: 4.7 cm FS: 37.4 % Ao root diam: 2.7 cm IVSd: 1.1 cm LVIDs: 2.9 cm EDV(Teich): 102.9 ml LVPWd: 1.1 cm ESV(Teich): 33.5 ml Ao root area: 5.9 cm2 EF(Teich): 67.4 % LA dimension: 4.2 cm Doppler Measurements \T\ Calculations MV E max lily: MV P1/2t max lily: Ao V2 max: LV V1 max P.3 cm/sec 81.7 cm/sec 179.2 cm/sec 9.3 mmHg MV A max lily: MV P1/2t: 55.0 msec Ao max PG: LV V1 max: 119.5 cm/sec 12.8 mmHg 152.4 cm/sec MV E/A: 0.69 MVA(P1/2t): 4.0 cm2 MV dec slope: 434.9 cm/sec2 MV dec time: 0.19 sec PA V2 max: TR max lily: 135.4 cm/sec 287.8 cm/sec PA max P.3 mmHgTR max P.1 mmHg Left Ventricle The left ventricle is grossly normal size. There is mild concentric left ventricular hypertrophy. The left ventricular ejection fraction is normal. Doppler measurements suggest pseudonormalized left ventricular relaxation, which is associated with grade II/IV or mild to moderate diastolic dysfunction. Wall motion cannot be accurately commented on, but no definite regional wall motion abnormalities noted. Right Ventricle The right ventricle is grossly normal size. There is normal right ventricular wall thickness. The right ventricular systolic function is normal. Atria The right atrium is normal. The left atrium is mildly dilated. Interarterial septum not well visualized and not well dopplered. Cannot comment on ASD/PFO presence. Mitral Valve The mitral valve is grossly normal. There is no mitral valve stenosis. There is a trace amount of mitral regurgitation. Aortic Valve The aortic valve is grossly normal. There is no aortic valve stenosis. No aortic regurgitation is present. Tricuspid Valve The tricuspid valve is not well visualized, but is grossly normal. There is no tricuspid stenosis. There is a trace to mild amount of tricuspid regurgitation. There is mild pulmonary hypertension by echo. Right ventricular systolic pressure is estimated to be elevated at 30-40mmHg. Pulmonic Valve The pulmonic valve is not well visualized. Great Vessels The aortic root is not well visualized. The inferior vena cava was not well visualized. Effusions Minimal pericardial effusion. : ROWENA CLEANING > Yaz Sanders
[2017-01-19] MEDS: ENOXAPARIN SODIUM INJ 40 MG/0.4 ML DISP.SYRIN SUBCUT SCH (09:12)
[2017-01-19] MEDS: TIOTROPIUM BROMIDE DPI 5 CAP/KIT (18 MCG/CAP) IH SCH (09:13)
[2017-01-19] MEDS: LOSARTAN POTASSIUM 50 MG TABLET PO SCH (09:13)
[2017-01-19] MEDS: LEVOTHYROXINE SODIUM 0.1 MG TABLET PO SCH (09:14)
[2017-01-19] MEDS: FUROSEMIDE 40 MG TABLET PO SCH (09:15)
[2017-01-19] MEDS: LEVOTHYROXINE SODIUM 0.025 MG TABLET PO SCH (09:15)
[2017-01-19] MEDS: ASPIRIN 81 MG TABLET, CHEWABLE PO SCH (09:15)
[2017-01-19] MEDS: SERTRALINE HCL 50 MG TABLET PO SCH (09:16)
[2017-01-19] MEDS: LEVOFLOXACIN 750 MG/D5W RTU 750 MG/150 ML RTUPB IV SCH (09:16)
--- NOTE | 2017-01-19 17:10 | RADIOLOGY REPORT (SQ) ---
EXAM DESCRIPTION: NM WHOLE BODY BONE SCAN COMPLETED DATE/TIME: 01/19/2017 4:13 pm REASON FOR STUDY: MULTIPLE FX (PATHOLOGIC FX TO THORACIC SPINE) COMPARISON: Thoracic spine MRI dated 01/17/2017 RADIONUCLIDE AND DOSE: 21.7 millicuries Tc99m MDP. The route of agent administration: Intravenous. ADDITIONAL DRUGS AND DOSES: None. TECHNIQUE: Routine delayed images post radionuclide injection acquired of the bony skeleton includi ng anterior and posterior whole-body projections and additional focused images as needed. LIMITATIONS: None. FINDINGS: BONES: Increased uptake involving the left sternoclavicular joint likely degenerative. Ab normal increased uptake involving the thoracic spine in the region of T7 and T9 corresponding to MR a bnormalities. No other areas of abnormal uptake were seen suggesting that the compression fractures are osteoporotic rather than pathologic although possibility of pathologic fracture cannot be exclude d. KIDNEYS: Symmetric excretion without obstruction. OTHER: No other significant finding. IMPRESSION: 1. Abnormal uptake involving T7 and T9 consistent with acute compression fractures. La ck of other lesions suggests that these may be osteoporotic rather than pathologic. COMMENT: PQRS 3570F: Current bone scan is compared with any available plain radiographs, prior bone scans, and CT/MRI. TECHNICAL DOCUMENTATION: JOB ID: [id number]- All Rights Reserved
--- NOTE | 2017-01-19 17:58 | PDOC PROGRESS REPORT ---
Subjective Progress Note for:: 01/19/17 Subjective:: She was seen by the bedside, a bone scan was done today and is suggested that the fracture of the thoracic spine is most likely osteoporotic fracture it was suspected, the pain specialist intend to do kyphoplasty by Tuesday. I spoke to the pain specialist today regarding the procedure. She continues to require intravenous Solu-Medrol she has less wheezing today, she is empirically on IV antibiotic because of the COPD but there is no active infection that is ongoing , there is leukocytosis secondary to the intravenous Solu-Medrol. Physical Exam Vital Signs: Temp Pulse Resp BP Pulse Ox 98.3 F 99 18 125/58 L 96 01/19/17 16:31 01/19/17 16:31 01/19/17 16:31 01/19/17 16:31 01/19/17 16:31 Intake & Output 01/18/17 01/19/17 01/20/17 06:59 06:59 06:59 Intake Total 1170 1697 720 Output Total 450 950 Balance 720 747 720 Weight 83.2 kg 83 kg General appearance: PRESENT: mild distress Head exam: PRESENT: atraumatic, normocephalic Mouth exam: PRESENT: moist Neck exam: PRESENT: full ROM Respiratory exam: PRESENT: wheezes Cardiovascular exam: PRESENT: RRR, +S1, +S2 Pulses: PRESENT: normal dorsalis pedis pul, +2 pedal pulses bilateral Vascular exam: PRESENT: normal capillary refill GI/Abdominal exam: PRESENT: normal bowel sounds, soft Rectal exam: PRESENT: deferred Neurological exam: PRESENT: alert Results Laboratory Results: 01/19/17 06:31 01/19/17 06:00 01/18/17 01/18/17 01/19/17 20:00 20:00 06:00 WBC 18.9 H D RBC 4.41 Hgb 10.2 L Hct 33.5 L MCV 76 L MCH 23.1 L MCHC 30.4 L RDW 17.4 H Plt Count 208 Seg Neutrophils % Not Reportable Lymphocytes % Not Reportable Monocytes % Not Reportable Eosinophils % Not Reportable Basophils % Not Reportable Absolute Neutrophils Not Reportable Absolute Lymphocytes Not Reportable Absolute Monocytes Not Reportable Absolute Eosinophils Not Reportable Absolute Basophils Not Reportable Sodium 141.1 143.3 Potassium 4.0 4.0 Chloride 100 106 Carbon Dioxide 20 L 18 L Anion Gap 21 H 19 BUN 25 H 37 H Creatinine 1.25 1.12 Est GFR ( Amer) 51 L 58 L Est GFR (Non-Af Amer) 42 L 48 L Glucose 202 H 225 H Calcium 9.9 9.7 Phosphorus 4.8 H Magnesium 1.6 Total Bilirubin 0.5 0.4 AST 38 H 32 ALT 48 41 Alkaline Phosphatase 106 100 Ammonia Total Protein 7.3 6.9 Albumin 4.3 4.1 Amylase 34 Lipase 53.5 01/19/17 01/19/17 06:31 06:31 WBC 22.0 H RBC 4.26 Hgb 10.0 L Hct 32.4 L MCV 76 L MCH 23.4 L MCHC 30.7 L RDW 17.5 H Plt Count 211 Seg Neutrophils % Not Reportable Lymphocytes % Not Reportable Monocytes % Not Reportable Eosinophils % Not Reportable Basophils % Not Reportable Absolute Neutrophils Not Reportable Absolute Lymphocytes Not Reportable Absolute Monocytes Not Reportable Absolute Eosinophils Not Reportable Absolute Basophils Not Reportable Sodium Potassium Chloride Carbon Dioxide Anion Gap BUN Creatinine Est GFR ( Amer) Est GFR (Non-Af Amer) Glucose Calcium Phosphorus Magnesium Total Bilirubin AST ALT Alkaline Phosphatase Ammonia < 8.7 L Total Protein Albumin Amylase Lipase 01/17/17 21:30 Clean Catch Midstream Urine Culture - Final Mixed Urogenital Michelle 01/17/17 01/17/17 01/17/17 20:09 20:09 20:09 Creatine Kinase 52 Troponin I < 0.012 NT-Pro-B Natriuret Pep 63 01/18/17 01/18/17 01/18/17 02:06 02:06 07:38 Creatine Kinase 53 39 Troponin I < 0.012 NT-Pro-B Natriuret Pep 01/18/17 07:38 Creatine Kinase Troponin I < 0.012 NT-Pro-B Natriuret Pep Impressions: Thoracic Spine MRI 01/17/17 00:00 IMPRESSION: Slight compression deformities of T7 and T8 with generalize marrow edema extension the pedicles. Worrisome for pathologic fractures. At T9 approximately 20% anterior wedge compression fracture without clearcut particular extension. Minimal compression deformity of T11. Chest CT 01/17/17 13:10 IMPRESSION: Obstructive lung disease with posterior upper lobe scarring. No focal infiltrates. Subacute T7, T8, and T9 mid thoracic compression deformities. Body Scan Nuclear Medicine 07/19/17 10:00 IMPRESSION: 1. Abnormal uptake involving T7 and T9 consistent with acute compression fractures. Lack of other lesions suggests that these may be osteoporotic rather than pathologic. Assessment & Plan - Diagnosis (1) Chronic obstructive asthma with acute exacerbation Is this a current diagnosis for this admission?: Yes (2) Metabolic alkalosis Is this a current diagnosis for this admission?: Yes (3) Diabetes mellitus type 2 in nonobese Is this a current diagnosis for this admission?: Yes (4) Osteoporotic compression fracture of spine Qualifiers: Encounter type: initial encounter Qualified Code(s): M80.88XA - Other osteoporosis with current pathological fracture, vertebra(e), initial encounter for fracture Is this a current diagnosis for this admission?: Yes (5) Pulmonary hypertension Is this a current diagnosis for this admission?: Yes (6) 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
--- NOTE | 2017-01-19 18:38 | PROGRESS NOTE E ---
Progress Note NAME: BAIRON FU : 1945 AGE: 71Y DATE: 01/19/2017 ROOM: 317 SUBJECTIVE: The patient remains in substantial pain in the mid back which is keeping her from getting up, moving, or taking deep breaths. She is currently also being treated for COPD flare but notes that the pain is really the most limiting thing with her ability to take a deep breath. OBJECTIVE: VITAL SIGNS: Temperature 98.3. Pulse 99. Blood pressure 125/58. Respiration 18. Saturation 96% on 2 liters nasal cannula. GENERAL: The patient is again lying on her side in the bed, in no acute distress. Alert and oriented x3. MUSCULOSKELETAL: Continued tenderness to palpation in the midline of the lower thoracic spine. EXTREMITIES: Moves all extremities x4. PSYCHIATRIC: Normal mood, affect, and demeanor. DIAGNOSTIC DATA: The patient underwent nuclear medicine bone scan demonstrating increased uptake in T7 and T9 vertebral bodies, skipping T8 but no other increased uptake other than mild uptake in the left sternoclavicular joint that appeared to be arthritic in nature. No further concerns for possible pathologic process. ASSESSMENT: COMPRESSION FRACTURES OF THE T7, AND T9 VERTEBRAL BODIES. PLAN: We will go ahead and proceed with kyphoplasty procedure of the aforementioned vertebral bodies as they do appear to be osteoporotic compression fractures. I will, however, send bone core biopsy during procedure. The procedure is scheduled for Tuesday at 10:00 a.m. I have placed orders to hold Lovenox for the next 36 and have the patient NPO after midnight on night in preparation for procedure. I am hopeful that she will have a quick improvement and may be able to be discharged either the day of or day following procedure. She will continue her pain medication regimen otherwise for now. DICTATING PHYSICIAN: DAWIT NERI M.D. [id number] PHY#: [id number] ID: [id number] JOB#: [id number] ACCT: [id number] cc:DAWIT NERI M.D. > MTDD
[2017-01-19] MEDS: ATORVASTATIN CALCIUM 80 MG TABLET PO SCH (20:59)
[2017-01-19] MEDS: LANSOPRAZOLE 30 MG TAB.RAP.DR PO SCH (20:59)
[2017-01-20] MEDS: METHYLPREDNISOLONE INJ 125 MG/2 ML SDV IV SCH ×2 (03:39→10:40)
[2017-01-20 06:32] LABS: HEMATOCRIT 35.5 % (36.0-47.0); HEMOGLOBIN 10.7 g/dL (12.0-15.5); HGB HCT DIFFERENCE -3.4; MEAN CORPUSCULAR HEMOGLOBIN 23.1 pg (27.0-33.4); MEAN CORPUSCULAR VOLUME 77 fl (80-97); RED BLOOD COUNT 4.61 10^6/uL (3.72-5.28); RED CELL DISTRIBUTION WIDTH 17.4 % (11.5-14.0); WHITE BLOOD COUNT 28.1 10^3/uL (4.0-10.5)
[2017-01-20] MEDS: LEVALBUTEROL HCL NEB 1.25 MG/3 ML AMPUL NEB PRN ×4 (06:40→20:54)
[2017-01-20 07:03] LABS: BASOPHILS % (MANUAL) 0 % (0-2); EOSINOPHILS % (MANUAL) 0 % (0-6); LYMPHOCYTES % (MANUAL) 3 % (13-45); TOTAL CELLS COUNTED 100
[2017-01-20 07:04] LABS: ANISOCYTOSIS 1+
[2017-01-20 07:20] LABS: ANION GAP 11 (5-19); BLOOD UREA NITROGEN 47 mg/dL (7-20); CALCIUM 9.5 mg/dL (8.4-10.2); CARBON DIOXIDE 24 mmol/L (22-30); CHLORIDE 107 mmol/L (98-107); CREATININE RESULT 0.85 mg/dL (0.52-1.25); GLUCOSE 195 mg/dL (75-110); LIPASE 96.9 U/L (23-300); MAGNESIUM 1.7 mg/dL (1.6-2.3); POTASSIUM 4.4 mmol/L (3.6-5.0)
[2017-01-20 07:24] LABS: AMYLASE < 30 U/L (30-110)
[2017-01-20] MEDS: METFORMIN HCL 500 MG TABLET PO SCH ×2 (08:19→17:18)
[2017-01-20] MEDS: OXYCODONE HCL IR 5 MG TABLET PO PRN ×2 (08:20→12:41)
[2017-01-20] MEDS: GLIMEPIRIDE 4 MG TABLET PO SCH (08:20)
[2017-01-20] MEDS: INSULIN LISPRO 100 UNIT/ML 3 ML VIAL SUBCUT PRN ×3 (08:21→21:35)
[2017-01-20] MEDS: LEVOTHYROXINE SODIUM 0.1 MG TABLET PO SCH (10:38)
[2017-01-20] MEDS: ASPIRIN 81 MG TABLET, CHEWABLE PO SCH (10:38)
[2017-01-20] MEDS: LOSARTAN POTASSIUM 50 MG TABLET PO SCH (10:39)
[2017-01-20] MEDS: FUROSEMIDE 40 MG TABLET PO SCH (10:39)
[2017-01-20] MEDS: CYCLOBENZAPRINE HCL 10 MG TABLET PO PRN (10:40)
[2017-01-20] MEDS: SERTRALINE HCL 50 MG TABLET PO SCH (10:40)
[2017-01-20] MEDS: LEVOFLOXACIN 750 MG/D5W RTU 750 MG/150 ML RTUPB IV SCH (10:41)
[2017-01-20] MEDS: LEVOTHYROXINE SODIUM 0.025 MG TABLET PO SCH (10:41)
[2017-01-20] MEDS: TIOTROPIUM BROMIDE DPI 5 CAP/KIT (18 MCG/CAP) IH SCH (10:43)
[2017-01-20] MEDS ORDERED: PREDNISONE 20 MG TABLET PO ONE ×2 (18:30→18:45)
[2017-01-20] MEDS: ATORVASTATIN CALCIUM 80 MG TABLET PO SCH (21:34)
[2017-01-20] MEDS: LANSOPRAZOLE 30 MG TAB.RAP.DR PO SCH (21:35)
--- NOTE | 2017-01-20 22:00 | PDOC PROGRESS REPORT ---
Subjective Progress Note for:: 01/20/17 Subjective:: She was seen by the bedside, she has less wheezing today, she is scheduled for kyphoplasty tomorrow Physical Exam Vital Signs: Temp Pulse Resp BP Pulse Ox 98.5 F 90 18 131/61 H 94 01/20/17 19:19 01/20/17 20:55 01/20/17 20:55 01/20/17 19:19 01/20/17 19:19 Intake & Output 01/19/17 01/20/17 01/21/17 06:59 06:59 06:59 Intake Total 1697 1628 890 Output Total 950 400 Balance 747 1228 890 Weight 83 kg 85.8 kg General appearance: PRESENT: no acute distress Eye exam: PRESENT: PERRLA Respiratory exam: PRESENT: wheezes Cardiovascular exam: PRESENT: +S1, +S2 GI/Abdominal exam: PRESENT: soft Neurological exam: PRESENT: alert Results Laboratory Results: 01/20/17 06:21 01/20/17 06:21 01/20/17 01/20/17 01/20/17 06:21 06:21 06:21 WBC 28.1 H RBC 4.61 Hgb 10.7 L Hct 35.5 L MCV 77 L MCH 23.1 L MCHC 30.0 L RDW 17.4 H Plt Count 264 Seg Neutrophils % Not Reportable Lymphocytes % Not Reportable Monocytes % Not Reportable Eosinophils % Not Reportable Basophils % Not Reportable Absolute Neutrophils Not Reportable Absolute Lymphocytes Not Reportable Absolute Monocytes Not Reportable Absolute Eosinophils Not Reportable Absolute Basophils Not Reportable Sodium 142.0 Potassium 4.4 Chloride 107 Carbon Dioxide 24 Anion Gap 11 BUN 47 H Creatinine 0.85 Est GFR ( Amer) > 60 Est GFR (Non-Af Amer) > 60 Glucose 195 H Calcium 9.5 Phosphorus 4.0 Magnesium 1.7 Ammonia 10.9 Amylase < 30 L Lipase 96.9 01/17/17 01/17/17 01/17/17 20:09 20:09 20:09 Creatine Kinase 52 Troponin I < 0.012 NT-Pro-B Natriuret Pep 63 01/18/17 01/18/17 01/18/17 02:06 02:06 07:38 Creatine Kinase 53 39 Troponin I < 0.012 NT-Pro-B Natriuret Pep 01/18/17 07:38 Creatine Kinase Troponin I < 0.012 NT-Pro-B Natriuret Pep Impressions: Thoracic Spine MRI 01/17/17 00:00 IMPRESSION: Slight compression deformities of T7 and T8 with generalize marrow edema extension the pedicles. Worrisome for pathologic fractures. At T9 approximately 20% anterior wedge compression fracture without clearcut particular extension. Minimal compression deformity of T11. Chest CT 01/17/17 13:10 IMPRESSION: Obstructive lung disease with posterior upper lobe scarring. No focal infiltrates. Subacute T7, T8, and T9 mid thoracic compression deformities. Body Scan Nuclear Medicine 01/19/17 10:00 IMPRESSION: 1. Abnormal uptake involving T7 and T9 consistent with acute compression fractures. Lack of other lesions suggests that these may be osteoporotic rather than pathologic. Assessment & Plan - Diagnosis (1) Chronic obstructive asthma with acute exacerbation Is this a current diagnosis for this admission?: Yes (2) Metabolic alkalosis Is this a current diagnosis for this admission?: Yes (3) Diabetes mellitus type 2 in nonobese Is this a current diagnosis for this admission?: Yes (4) Osteoporotic compression fracture of spine Qualifiers: Encounter type: initial encounter Qualified Code(s): M80.88XA - Other osteoporosis with current pathological fracture, vertebra(e), initial encounter for fracture Is this a current diagnosis for this admission?: Yes (5) Pulmonary hypertension Is this a current diagnosis for this admission?: Yes (6) 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 prednisone
[2017-01-21 04:50] LABS: ABSOLUTE LYMPHOCYTES (AUTO) 0.9 10^3/uL (0.5-4.7); ABSOLUTE MONOCYTES (AUTO) 0.5 10^3/uL (0.1-1.4); ABSOLUTE NEUT (AUTO) 15.7 10^3/uL (1.7-8.2); HEMATOCRIT 32.6 % (36.0-47.0); HGB HCT DIFFERENCE -2.6; LYMPHOCYTES % (AUTO) 5.3 % (13-45); MEAN CORPUSCULAR HEMOGLOBIN 23.3 pg (27.0-33.4); MEAN CORPUSCULAR HGB CONC 30.8 g/dL (32.0-36.0); MEAN CORPUSCULAR VOLUME 76 fl (80-97); MONOCYTES % (AUTO) 3.1 % (3-13); RED BLOOD COUNT 4.31 10^6/uL (3.72-5.28); RED CELL DISTRIBUTION WIDTH 17.7 % (11.5-14.0); SEGMENTED NEUTROPHILS % (AUTO) 91.6 % (42-78); WHITE BLOOD COUNT 17.1 10^3/uL (4.0-10.5)
[2017-01-21 05:04] LABS: PROTHROMBIN TIME 14.4 SEC (11.4-15.4)
[2017-01-21 05:14] LABS: ANION GAP 12 (5-19); BLOOD UREA NITROGEN 47 mg/dL (7-20); CALCIUM 9.5 mg/dL (8.4-10.2); CARBON DIOXIDE 24 mmol/L (22-30); CHLORIDE 106 mmol/L (98-107); CREATININE RESULT 0.81 mg/dL (0.52-1.25); GLUCOSE 262 mg/dL (75-110); POTASSIUM 4.8 mmol/L (3.6-5.0); SODIUM 142.1 mmol/L (137-145)
[2017-01-21] MEDS: LEVOTHYROXINE SODIUM 0.1 MG TABLET PO SCH (05:49)
[2017-01-21] MEDS: LEVOTHYROXINE SODIUM 0.025 MG TABLET PO SCH (05:49)
[2017-01-21] MEDS: INSULIN LISPRO 100 UNIT/ML 3 ML VIAL SUBCUT PRN ×2 (08:35→22:21)
[2017-01-21] MEDS: METFORMIN HCL 500 MG TABLET PO SCH ×2 (08:37→14:27)
[2017-01-21] MEDS ORDERED: LIDOCAINE 1% INJ-PF (10 MG/ML) 30 ML SDV ONE (08:53)
[2017-01-21] MEDS: LEVALBUTEROL HCL NEB 1.25 MG/3 ML AMPUL NEB PRN ×3 (09:15→22:53)
[2017-01-21] MEDS ORDERED: FENTANYL CITRATE INJ/PF 100 MCG/2 ML AMPUL ONE (09:42)
[2017-01-21] MEDS ORDERED: MIDAZOLAM 2 MG/2 ML INJ ONE (09:42)
[2017-01-21] MEDS ORDERED: PROPOFOL INJ 200 MG/20 ML VIAL IV ONE (09:43)
[2017-01-21] MEDS ORDERED: CEFAZOLIN INJ 1 GM VIAL ONE (10:24)
[2017-01-21] MEDS ORDERED: MORPHINE SULFATE 10 MG/ML INJ IV PRN (10:55)
[2017-01-21] MEDS ORDERED: PROMETHAZINE HCL INJ 25 MG/1 ML VIAL IV PRN ×2 (10:55)
[2017-01-21] MEDS ORDERED: OXYCODONE-ACETAMINOPHEN 5-325 MG TABLET PO PRN ×2 (10:55)
[2017-01-21] MEDS ORDERED: MEPERIDINE HCL/PF INJ 25 MG/1 ML DISP.SYRIN IV PRN (10:55)
[2017-01-21] MEDS ORDERED: DIPHENHYDRAMINE HCL 50 MG/ML VIAL IV PRN (10:55)
[2017-01-21] MEDS ORDERED: FENTANYL CITRATE INJ/PF 100 MCG/2 ML AMPUL IV PRN ×3 (10:55)
[2017-01-21] MEDS ORDERED: ONDANSETRON HCL INJ/PF 4 MG/2 ML SDV IV PRN (12:31)
[2017-01-21] MEDS ORDERED: OXYCODONE HCL IR 5 MG TABLET PO PRN (12:31)
[2017-01-21] MEDS ORDERED: LIDOCAINE 2% INJ-PF (20 MG/ML) 10 ML AMPUL ONE (13:46)
--- NOTE | 2017-01-21 13:50 | OPERATIVE REPORT E ---
Operative Report NAME: BAIRON FU : 1945 AGE: 71Y DATE OF SURGERY: ROOM: 317 PREOPERATIVE DIAGNOSIS: Vertebral compression fracture, considered osteoporotic, of T9 and T7 vertebral bodies. POSTOPERATIVE DIAGNOSIS: Vertebral compression fracture, considered osteoporotic, of T9 and T7 vertebral bodies. PROCEDURE PERFORMED: Percutaneous balloon kyphoplasty using a unipedicular approach of T7 and T9 vertebral bodies. PRIMARY SURGEON: DAWIT NERI M.D. OPERATIVE FINDINGS: Excellent methylmethacrylate spread without extravasation throughout the T7 vertebral body and T9 vertebral body. SPECIMENS REMOVED: Core biopsy performed at both levels, T7 and T9, and sent to pathology. ANESTHESIA: Local with monitored anesthesia care. ESTIMATED BLOOD LOSS: 5 mL. INTRAVENOUS FLUIDS: 500 mL of balanced crystalloid solution. INTRAVENOUS ANTIBIOTICS: Ancef 1 gram given perioperatively. Within 30 minutes of procedure. OPERATIVE INDICATIONS: The patient is a 71-year-old female with severe COPD and osteoporosis who suffered an acute compression fracture of the T7, T8, and T9 vertebral bodies in late November. She has had severe excruciating back pain since. The patient notably underwent bone scan and the T7 and T9 vertebral bodies demonstrated increased uptake. As such, it was opted to perform kyphoplasty at these 2 levels initially. The patient had all risks and benefits discussed with her in detail, including, but not limited to, bleeding, bruising, infection, injury to nerves, arteries, veins, loss of bowel or bladder function, paralysis, and potentially even . She agreed to proceed after informed consent was obtained. OPERATIVE REPORT: The patient was accompanied to the operative suite by Anesthesia. The patient was positioned in prone position and all pressure points were checked and padded. Standard ASA lines and monitors were applied. Lateral and AP fluoroscopic guidance was utilized to identify the T7 and T9 vertebral bodies. After optimization of fluoroscopic views, the patient was prepped and draped in sterile fashion using chlorhexidine gluconate solution, which was allowed appropriate time to dry. The patient was draped using an [place] drape. Timeout protocol was performed as per [facility] standards. The attention was first turned to the T7 vertebral body. This was brought into view in the AP and lateral angulations. The left pedicle was easily visualized and marked. The skin overlying the intended trocar entry site was anesthetized using 1% buffered lidocaine using a 25-gauge needle. Deeper tissues were infiltrated using a 3.5 inch spinal needle and further 1% buffered lidocaine. Incision was made using a 15 blade scalpel. The halina-tipped trocar was advanced using intermittent AP and lateral fluoroscopic guidance to make contact with the lateral margin of the left pedicle. Once purchase was made in bone, the trocar was advanced very carefully to the mid pedicle to ensure no movement of the trocar into the superior or inferior neural foramina. At that mid pedicle, the beveled tip was used to further medialize the trocar. This was advanced slightly through the posterior cortex of the vertebral body. Subsequently, a bone biopsy tool was utilized to extract a core biopsy. Following this, a balloon was inserted and inflated to approximately 230 psi with excellent spread of the balloon noted across the midline. Attention was then turned to the T9 vertebral body, where the procedure was performed in the exact same fashion. Skin anesthesia with 1% buffered lidocaine and then both halina and beveled trocar were utilized to advance into the vertebral body. A balloon was inserted after core biopsy and drilling. At this point, cement was mixed on the back table and when this was ready for injection, the cement introducer device was placed through the trocar. Cement was injected at increments of 0.2 mL. This notably utilized contrast. There was no extravasation of cement outside of the vertebral body or posterior to where the trocars were placed. There was excellent spread of cement across the midline and superolaterally at both levels. Then, 2 mL of methylmethacrylate cement were injected at each level. Subsequently, the cement introducer was removed from the trocar and the halina tipped introducer needles were replaced into the trocar and allowed to set for about 2 minutes. Subsequently, these were removed. Skin was cleansed and bandages were applied. The patient was accompanied by anesthesia to the post-anesthesia recovery unit in stable condition. She will be monitored overnight and may likely return home tomorrow pending outcome of procedure. DICTATING PHYSICIAN: DAWIT NERI M.D. [id number] PHY#: [id number] ID: [id number] JOB#: [id number] ACCT: [id number] cc:DAWIT NERI M.D. >
[2017-01-21] MEDS: SERTRALINE HCL 50 MG TABLET PO SCH (14:28)
[2017-01-21] MEDS: PREDNISONE 20 MG TABLET PO SCH (14:28)
[2017-01-21] MEDS: FUROSEMIDE 40 MG TABLET PO SCH (14:29)
[2017-01-21] MEDS: LEVOFLOXACIN 750 MG TABLET PO SCH (14:29)
[2017-01-21] MEDS: LOSARTAN POTASSIUM 50 MG TABLET PO SCH (14:29)
[2017-01-21] MEDS: GLIMEPIRIDE 4 MG TABLET PO SCH (14:30)
[2017-01-21] MEDS: TIOTROPIUM BROMIDE DPI 5 CAP/KIT (18 MCG/CAP) IH SCH (14:31)
[2017-01-21] MEDS: ASPIRIN 81 MG TABLET, CHEWABLE PO SCH (14:33)
--- NOTE | 2017-01-21 15:58 | RADIOLOGY REPORT (SQ) ---
EXAM DESCRIPTION: T SPINE AP/LAT COMPLETED DATE/TIME: 01/21/2017 3:41 pm REASON FOR STUDY: KYPHOPLASTY T SPINE 2 LEVELS ASSISTED WITH C ARM IN OR COMPARISON: None. FLUOROSCOPY TIME: 5.2 minutes 34 images saved to PACS. TECHNIQUE: Intra-operative images acquired during surgical procedure to evaluate progress. NUMBER OF IMAGES: 34 LIMITATIONS: None. FINDINGS: Fluoroscopic images were obtained during performance of a kyphoplasty at 2 levels. IMPRESSION: IMAGE(S) OBTAINED DURING PROCEDURE. COMMENT: Quality ID [id number]: Final reports for procedures using fluoroscopy that document radiation exp osure indices, or exposure time and number of fluorographic images (if radiation exposure indices are not available) Please consult full operative report of the attending physician for description of the procedure. TECHNICAL DOCUMENTATION: JOB ID: [id number] [employer]- All Rights Reserved
--- NOTE | 2017-01-21 15:59 | RADIOLOGY REPORT (SQ) ---
EXAM DESCRIPTION: NO CHG FLUORO COMPLETE DATE/TIME: 01/21/2017 3:41 pm REASON FOR STUDY: KYPHOPLASTY T SPINE 2 LEVELS ASSISTED WITH C ARM IN OR FINDINGS: Please see combined report for performance of procedure and radiologic supervision and int erpretation. IMPRESSION: Please see combined report for performance of procedure and radiologic supervision and i nterpretation.
--- NOTE | 2017-01-21 21:45 | PDOC PROGRESS REPORT ---
Subjective Progress Note for:: 01/21/17 Subjective:: Patient was seen today by the bedside she had percutaneous balloon kyphoplasty of T7 and T9 vertebral bodies done today she said she feels much better Physical Exam Vital Signs: Temp Pulse Resp BP Pulse Ox 97.9 F 98 24 H 131/64 H 95 01/21/17 19:59 01/21/17 19:59 01/21/17 19:59 01/21/17 19:59 01/21/17 19:59 Intake & Output 01/20/17 01/21/17 01/22/17 06:59 06:59 06:59 Intake Total 1628 1190 2435 Output Total 400 5 Balance 1228 1190 2430 Weight 85.8 kg 83.2 kg General appearance: PRESENT: no acute distress Eye exam: PRESENT: PERRLA Respiratory exam: PRESENT: clear to auscultation benjamin Cardiovascular exam: PRESENT: +S2 Murmur grade: 3 GI/Abdominal exam: PRESENT: soft Neurological exam: PRESENT: alert, CN II-XII grossly intact Results Laboratory Results: 01/21/17 04:33 01/21/17 04:33 01/21/17 01/21/17 04:33 04:33 WBC 17.1 H RBC 4.31 Hgb 10.0 L Hct 32.6 L MCV 76 L MCH 23.3 L MCHC 30.8 L RDW 17.7 H Plt Count 238 Seg Neutrophils % 91.6 H Lymphocytes % 5.3 L Monocytes % 3.1 Eosinophils % 0.0 Basophils % 0.0 Absolute Neutrophils 15.7 H Absolute Lymphocytes 0.9 Absolute Monocytes 0.5 Absolute Eosinophils 0.0 Absolute Basophils 0.0 Sodium 142.1 Potassium 4.8 Chloride 106 Carbon Dioxide 24 Anion Gap 12 BUN 47 H Creatinine 0.81 Est GFR ( Amer) > 60 Est GFR (Non-Af Amer) > 60 Glucose 262 H Calcium 9.5 01/17/17 01/17/17 01/17/17 20:09 20:09 20:09 Creatine Kinase 52 Troponin I < 0.012 NT-Pro-B Natriuret Pep 63 01/18/17 01/18/17 01/18/17 02:06 02:06 07:38 Creatine Kinase 53 39 Troponin I < 0.012 NT-Pro-B Natriuret Pep 01/18/17 07:38 Creatine Kinase Troponin I < 0.012 NT-Pro-B Natriuret Pep Impressions: Thoracic Spine MRI 01/17/17 00:00 IMPRESSION: Slight compression deformities of T7 and T8 with generalize marrow edema extension the pedicles. Worrisome for pathologic fractures. At T9 approximately 20% anterior wedge compression fracture without clearcut particular extension. Minimal compression deformity of T11. Chest CT 01/17/17 13:10 IMPRESSION: Obstructive lung disease with posterior upper lobe scarring. No focal infiltrates. Subacute T7, T8, and T9 mid thoracic compression deformities. Body Scan Nuclear Medicine 01/19/17 10:00 IMPRESSION: 1. Abnormal uptake involving T7 and T9 consistent with acute compression fractures. Lack of other lesions suggests that these may be osteoporotic rather than pathologic. Fluoroscopy 01/21/17 00:00 IMPRESSION: Please see combined report for performance of procedure and radiologic supervision and interpretation. Thoracic Spine X-Ray 01/21/17 00:00 IMPRESSION: IMAGE(S) OBTAINED DURING PROCEDURE. Assessment & Plan - Diagnosis (1) Chronic obstructive asthma with acute exacerbation Is this a current diagnosis for this admission?: YesPlan: There is improvement in the acute COPD exacerbation, she is presently on p.o. prednisone (2) Metabolic alkalosis Is this a current diagnosis for this admission?: Yes (3) Diabetes mellitus type 2 in nonobese Is this a current diagnosis for this admission?: Yes (4) Osteoporotic compression fracture of spine Qualifiers: Encounter type: initial encounter Qualified Code(s): M80.88XA - Other osteoporosis with current pathological fracture, vertebra(e), initial encounter for fracture Is this a current diagnosis for this admission?: YesPlan: She is status post balloon kyphoplasty of the thoracic spine (5) Pulmonary hypertension Is this a current diagnosis for this admission?: Yes (6) 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
[2017-01-21] MEDS: ATORVASTATIN CALCIUM 80 MG TABLET PO SCH (21:51)
[2017-01-21] MEDS: LANSOPRAZOLE 30 MG TAB.RAP.DR PO SCH (21:51)
[2017-01-22] MEDS: LEVOTHYROXINE SODIUM 0.1 MG TABLET PO SCH (06:00)
[2017-01-22] MEDS: LEVOTHYROXINE SODIUM 0.025 MG TABLET PO SCH (06:01)
[2017-01-22] MEDS: METFORMIN HCL 500 MG TABLET PO SCH (08:42)
[2017-01-22] MEDS: FUROSEMIDE 40 MG TABLET PO SCH (08:43)
[2017-01-22] MEDS: GLIMEPIRIDE 4 MG TABLET PO SCH (08:43)
[2017-01-22] MEDS: SERTRALINE HCL 50 MG TABLET PO SCH (08:43)
[2017-01-22] MEDS: LOSARTAN POTASSIUM 50 MG TABLET PO SCH (08:44)
[2017-01-22] MEDS: LEVOFLOXACIN 750 MG TABLET PO SCH (08:44)
[2017-01-22] MEDS: PREDNISONE 20 MG TABLET PO SCH (08:44)
[2017-01-22] MEDS: ASPIRIN 81 MG TABLET, CHEWABLE PO SCH (08:45)
[2017-01-22] MEDS: TIOTROPIUM BROMIDE DPI 5 CAP/KIT (18 MCG/CAP) IH SCH (08:45)
[2017-01-22] MEDS: ENOXAPARIN SODIUM INJ 40 MG/0.4 ML DISP.SYRIN SUBCUT SCH (10:45)
--- NOTE | 2017-01-22 11:26 | PDOC DISCHARGE SUMMARY ---
General - Admit/Disc Date/PCP Admission Date/Primary Care Provider: 01/17/17 12:25 ROWENA [employer]AN[employer] MD Discharge Date: 01/22/17 - Discharge Diagnosis (1) Chronic obstructive asthma with acute exacerbation Is this a current diagnosis for this admission?: Yes (2) Metabolic alkalosis Is this a current diagnosis for this admission?: Yes (3) Diabetes mellitus type 2 in nonobese Is this a current diagnosis for this admission?: Yes (4) Osteoporotic compression fracture of spine Is this a current diagnosis for this admission?: Yes (5) Pulmonary hypertension Is this a current diagnosis for this admission?: Yes (6) 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 - Additional Information Resuscitation Status: Full Code Discharge Activity: Activity As Tolerated, Balance Activity w/Rest Home Medications: Aspirin [Aspirin 81 mg Chewable Tablet] 81 mg PO DAILY 01/17/17 Atorvastatin Calcium [Lipitor 80 mg Tablet] 80 mg PO QHS 01/17/17 Chlorpheniramine Maleate [Pharbechlor 4 mg Tablet] 4 mg PO Q6HP PRN 01/17/17 Furosemide [Lasix] 40 mg PO DAILY 01/17/17 Glimepiride [Amaryl 4 mg Tablet] 4 mg PO [id number] 01/17/17 Ipratropium/Albuterol Sulfate [Duoneb 3 ml Ampul] 3 ml NEB RTQ6 01/17/17 Levothyroxine Sodium [Synthroid 0.025 mg Tablet] 25 mcg PO DAILY 01/17/17 Levothyroxine Sodium [Synthroid] 200 mcg PO DAILY 01/17/17 Losartan Potassium [Cozaar 100 mg Tablet] 100 mg PO DAILY 01/17/17 Metformin HCl [Glucophage] 1,000 mg PO BIDBS 01/17/17 Sertraline HCl [Zoloft 50 mg Tablet] 50 mg PO DAILY 01/17/17 Tiotropium Clifford [Spiriva Handihaler 18 mcg/dose (30 Dose)] 1 cap IH DAILY Prednisone [Deltasone 20 mg Tablet] 40 mg PO DAILY #0 tablet 01/22/17 History of Present Illness History of Present Illness: BAIRON FU is a 71 year old female, She is well-known to me she has multiple comorbid conditions including chronic obstructive pulmonary disease, osteoporotic thoracic spine fracture at multiple levels, nonalcoholic hepatitis , Soto, she came to the office today for evaluation of shortness of breath, wheezing, and right chest wall pain. She was supposed to follow with pain specialist for kyphoplasty of the thoracic spine today. She has severe pain affecting the thoracic spine and I spoke to the pain specialist last week [place] and she was kind enough to schedule her for appointment today to be seen for kyphoplasty of the thoracic spine, she has mid thoracic compression fracture of T7-T9, bone density that was done outpatient confirmedthats she has osteoporosis but rather than keep the appointment with the pain specialist she came to the office today because she could not breathe. CT chest without contrast was done it showed obstructive lung disease in both upper lobes there is minimal bandlike scarring in the posterior right and possible left upper lobes there is no acute infiltrate no pleural effusion no pneumothorax there is no obvious masses. The blood gas that was done showed metabolic alkalosis ABG on room air showed pH 7.47 PO2 74 bicarbonate 29 CO2 30.5 consistent with metabolic alkalosis the chemistries show hypokalemia. Hospital Course Hospital Course: Patient was admitted for management of COPD exacerbation, she was treated with IV Solu-Medrol, bronchodilators with DuoNeb. She had fracture of the thoracic vertebrae, T5-T7, she underwent kyphoplasty on this admission. There was metabolic alkalosis associated with hypokalemia Physical Exam Vital Signs: Temp Pulse Resp BP Pulse Ox 98.3 F 80 18 121/80 94 01/22/17 08:29 01/22/17 08:29 01/22/17 08:29 01/22/17 08:29 01/22/17 08:29 Intake & Output 01/21/17 01/22/17 01/23/17 06:59 06:59 06:59 Intake Total 1190 3035 Output Total 5 Balance 1190 3030 Weight 83.2 kg 85.9 kg General appearance: PRESENT: no acute distress, well-developed, well-nourished Head exam: PRESENT: atraumatic, normocephalic Eye exam: PRESENT: conjunctiva pink, EOMI, PERRLA Mouth exam: PRESENT: moist, tongue midline Neck exam: PRESENT: full ROM Respiratory exam: PRESENT: clear to auscultation benjamin Cardiovascular exam: PRESENT: RRR, +S1, +S2 Murmur grade: 3 Pulses: PRESENT: normal dorsalis pedis pul, +2 pedal pulses bilateral Vascular exam: PRESENT: normal capillary refill GI/Abdominal exam: PRESENT: normal bowel sounds, soft Rectal exam: PRESENT: deferred Neurological exam: PRESENT: alert, CN II-XII grossly intact Psychiatric exam: PRESENT: appropriate affect, normal mood Skin exam: PRESENT: dry, intact, warm Results Laboratory Results: 01/21/17 04:33 01/21/17 04:33 01/17/17 01/17/17 01/17/17 20:09 20:09 20:09 Creatine Kinase 52 Troponin I < 0.012 NT-Pro-B Natriuret Pep 63 01/18/17 01/18/17 01/18/17 02:06 02:06 07:38 Creatine Kinase 53 39 Troponin I < 0.012 NT-Pro-B Natriuret Pep 01/18/17 07:38 Creatine Kinase Troponin I < 0.012 NT-Pro-B Natriuret Pep Impressions: Thoracic Spine MRI 01/17/17 00:00 IMPRESSION: Slight compression deformities of T7 and T8 with generalize marrow edema extension the pedicles. Worrisome for pathologic fractures. At T9 approximately 20% anterior wedge compression fracture without clearcut particular extension. Minimal compression deformity of T11. Chest CT 01/17/17 13:10 IMPRESSION: Obstructive lung disease with posterior upper lobe scarring. No focal infiltrates. Subacute T7, T8, and T9 mid thoracic compression deformities. Body Scan Nuclear Medicine 01/19/17 10:00 IMPRESSION: 1. Abnormal uptake involving T7 and T9 consistent with acute compression fractures. Lack of other lesions suggests that these may be osteoporotic rather than pathologic. Fluoroscopy 01/21/17 00:00 IMPRESSION: Please see combined report for performance of procedure and radiologic supervision and interpretation. Thoracic Spine X-Ray 01/21/17 00:00 IMPRESSION: IMAGE(S) OBTAINED DURING PROCEDURE.
[2017-01-22 11:31] VITALS: BP 119/72
[2017-01-22] MEDS: LEVALBUTEROL HCL NEB 1.25 MG/3 ML AMPUL NEB PRN (11:54)
== END 2017-01-22 12:20 | disposition home or self-care (01) | DRG 167 ==
LOC: 3W 12:25
PROVIDERS: ADMIT Internal Medicine; ATTEND Internal Medicine
PROC: 0PS43ZZ Reposition Thoracic Vertebra, Percutaneous Approach (ICD-10-PCS; 2017-01-21)
PROC: 0PU43JZ Supplement Thoracic Vertebra with Synthetic Substitute, Percutaneous Approach (ICD-10-PCS; 2017-01-21)
PROC: 0PB44ZX Excision of Thoracic Vertebra, Percutaneous Endoscopic Approach, Diagnostic (ICD-10-PCS; principal; 2017-01-21 10:00)
DX: J44.1 Chronic obstructive pulmonary disease with (acute) exacerbation (principal); E87.3 Alkalosis; M80.08XA Age-related osteoporosis with current pathological fracture, vertebra(e), initial encounter for fracture; E87.6 Hypokalemia; E11.9 Type 2 diabetes mellitus without complications; K75.81 Nonalcoholic steatohepatitis (NASH); K74.60 Unspecified cirrhosis of liver; I25.10 Atherosclerotic heart disease of native coronary artery without angina pectoris; E78.5 Hyperlipidemia, unspecified; E03.9 Hypothyroidism, unspecified; I27.2 Other secondary pulmonary hypertension; F32.9 Major depressive disorder, single episode, unspecified; Z79.899 Other long term (current) drug therapy; Z79.82 Long term (current) use of aspirin; Z79.84 Long term (current) use of oral hypoglycemic drugs; Z87.891 Personal history of nicotine dependence
CPT/HCPCS: 1936; 36415; 36600; 71250; 72070; 72146; 78306; 80048; 80053; 80307; 81001; 82140; 82150; 82272; 82550; 82803; 82962; 83690; 83735; 83880; 84100; 84439; 84443; 84484; 85025; 85027; 85610; 85730; 87040; 87086; 88305; 88311; 88342; 93005; 93010; 93306; 94640; A9561; J0690; J1650; J1815; J1885; J1956; J2250; J2704; J2930; J3010; J3490; J7512; J7620; Q9966; Q9969

== ENCOUNTER 2017-01-31 12:30 | Emergency (ER) | payer BC ==
[2017-01-31] MEDS ORDERED: IPRATROPIUM/ALBUTEROL 0.5-2.5 MG/3 ML AMPUL NEB ONE (13:09)
[2017-01-31] MEDS ORDERED: OXYCODONE-ACETAMINOPHEN 5-325 MG TABLET PO ONE (13:09)
--- NOTE | 2017-01-31 14:03 | RADIOLOGY REPORT (SQ) ---
EXAM DESCRIPTION: L SPINE WHOLE COMPLETED DATE/TIME: 01/31/2017 1:47 pm REASON FOR STUDY: low back pain COMPARISON: None. NUMBER OF VIEWS: Five views including obliques. TECHNIQUE: AP, lateral, oblique, and sacral radiographic images acquired of the lumbar spine. LIMITATIONS: None. FINDINGS: MINERALIZATION: Normal. SEGMENTATION: Normal. No transitional anatomy. ALIGNMENT: Normal. VERTEBRAE: Maintained height. No fracture or worrisome bone lesion. DISCS: Minimal disc space narrowing L4-L5. POSTERIOR ELEMENTS: Pedicles and facets are intact. No pars defect or posterior arch defects. HARDWARE: None in the spine. PARASPINAL SOFT TISSUES: Normal. PELVIS: Intact as visualized. No fractures or worrisome bone lesions. SI joints intact. OTHER: Mild asymmetrical dilatation distal abdominal aorta. 2.7 cm AP diameter. IMPRESSION: Minimal disc space narrowing L4-L5. No other significant bony pathology. Incidental fi ndings of severe constipation and mild stable asymmetrical dilatation distal abdominal aorta measurin g 2.7 cm AP diameter. TECHNICAL DOCUMENTATION: JOB ID: [id number] [employer]- All Rights Reserved
--- NOTE | 2017-01-31 14:04 | RADIOLOGY REPORT (SQ) ---
EXAM DESCRIPTION: HIP RIGHT AP/LATERAL COMPLETED DATE/TIME: 01/31/2017 1:47 pm REASON FOR STUDY: r hip pain COMPARISON: None. NUMBER OF VIEWS: Two views. TECHNIQUE: AP pelvis and additional frog-leg view of the right hip. LIMITATIONS: None. FINDINGS: MINERALIZATION: Normal. RIGHT HIP: No fracture or dislocation. No worrisome bone lesions. No contour deformity. No joint sp brina narrowing. LEFT HIP: No fracture or dislocation. No worrisome bone lesions. PUBIS AND ISCHIUM: No fracture. PELVIS: No fracture. SACRUM: No fracture or dislocation. No worrisome bone lesions. LOWER LUMBAR SPINE: No fracture or dislocation. No worrisome bone lesions. No significant disc disea se. SOFT TISSUES: No findings. OTHER: No other significant finding. IMPRESSION: NEGATIVE STUDY OF THE RIGHT HIP. NO EXPLANATION FOR PAIN. TECHNICAL DOCUMENTATION: JOB ID: [id number] [employer]- All Rights Reserved
[2017-01-31] MEDS ORDERED: LIDOCAINE 5% (700 MG) TRANSDERMAL ADH..PATCH TP ONE (14:24)
--- NOTE | 2017-01-31 14:26 | ER Document Report ---
HPI - HPI Patient complains to provider of: r hip pain Onset: Last week Onset/Duration: Persistent Quality of pain: Sharp Pain Level: 5 Context: Patient presents complaining of right hip pain for the past week. Patient states pain is worse whenever she sits up right or attempt to ambulate. Patient denies any injury or fever. Patient states that she has had sciatica in the past and suspects the same today. Pt states she called her pcp Dr Rogers who advised her to come here for evaluation Associated Symptoms: Other - r hip, low back pain. denies: Fever Exacerbated by: Sitting, Standing, Movement, Walking Relieved by: Denies Similar symptoms previously: No Recently seen / treated by doctor: Yes - ROS ROS below otherwise negative: Yes Systems Reviewed and Negative: Yes All other systems reviewed and negative - CONSTITUTIONAL Constitutional: DENIES: Fever, Chills - NEURO Neurology: DENIES: Weakness - CARDIOVASCULAR Cardiovascular: DENIES: Chest pain - RESPIRATORY Respiratory: DENIES: Trouble Breathing - GASTROINTESTINAL Gastrointestinal: DENIES: Abdominal Pain, Nausea, Patient vomiting - REPRODUCTIVE Reproductive: DENIES: : - MUSCULOSKELETAL Musculoskeletal: REPORTS: Extremity pain - right hip, Back Pain. DENIES: Swelling - DERM Skin Color: Normal Skin Problems: None Past Medical History - General Information source: Patient - Social History Smoking Status: Former Smoker Chew tobacco use (# tins/day): No Frequency of alcohol use: None Drug Abuse: None Occupation: none Lives with: Family Family History: CAD, CVA, DM, Hyperlipidemia, Hypertension, Malignancy, Thyroid Disfunction - Past Medical History Cardiac Medical History: Reports: Hx Atrial Fibrillation, Hx Coronary Artery Disease, Hx Heart Attack - I MONTH , Hx Hypercholesterolemia, Hx Hypertension Pulmonary Medical History: Reports: Hx Asthma - INHALER, Hx COPD, Hx Pneumonia Denies: Hx Bronchitis, Hx Tuberculosis Neurological Medical History: Denies: Hx Cerebrovascular Accident, Hx Seizures Endocrine Medical History: Reports: Hx Diabetes Mellitus Type 2, Hx Hypothyroidism Renal/ Medical History: Denies: Hx Peritoneal Dialysis GI Medical History: Reports: Hx Cirrhosis. Denies: Hx Hepatitis, Hx Hiatal Hernia, Hx Ulcer Musculoskeltal Medical History: Reports Hx Arthritis Psychiatric Medical History: Reports: Hx Depression Infectious Medical History: Denies: Hx Hepatitis Past Surgical History: Reports: Hx Abdominal Surgery - HERNIA X2, Hx Breast Surgery - lump removal x2, Hx Cardiac Catheterization, Hx Orthopedic Surgery - back, Hx Umbilical Hernia. Denies: Hx Hysterectomy, Hx Mastectomy, Hx Open Heart Surgery, Hx Pacemaker - Immunizations Immunizations up to date: Yes Hx Diphtheria, Pertussis, Tetanus Vaccination: No Hx Pneumococcal Vaccination: 04/03/12 Vertical Provider Document - CONSTITUTIONAL Agree With Documented VS: Yes Exam Limitations: No Limitations General Appearance: WD/WN, No Apparent Distress - INFECTION CONTROL TRAVEL OUTSIDE OF THE [place] IN LAST 30 DAYS: No - HEENT HEENT: Atraumatic, Normocephalic - NECK Neck: Normal Inspection, Supple - RESPIRATORY Respiratory: No Respiratory Distress, Chest Non-Tender, Wheezing O2 Sat by Pulse Oximetry: 94 - CARDIOVASCULAR Cardiovascular: Regular Rate, Regular Rhythm, No Murmur - GI/ABDOMEN Gastrointestinal: Abdomen Soft, Abdomen Non-Tender - BACK Back: Abnormal Inspection - lumbar paraspinal tenderness. negative: CVA Tenderness-Right, CVA Tenderness-Left - MUSCULOSKELETAL/EXTREMETIES Musculoskeletal/Extremeties: MAEW, Tender - tenderness to right anterior hip joint with patient in getting into the sitting position. No increase in tenderness with hip abduction - NEURO Level of Consciousness: Awake, Alert, Appropriate Motor/Sensory: No Motor Deficit - DERM Integumentary: Warm, Dry, No Rash Course - Re-evaluation Re-evalutation: 01/31/17 13:[address] Cleaning regarding patient presentation, patient exam findings and plan evaluation. Agrees with plan for imaging of the hip and advises outpatient follow-up in his office 01/31/17 14:22 Patient's respirations unlabored, wheezing, was completely resolved. Patient encouraged to use her nebulizer treatment at home as prescribed. Patient given a copy of her radiology report. Patient advised of stable lower abdominal aortic dilatation. Patient also advised of constipation. Discussed with patient at length concerned about worsening constipation given treatment of her back pain with a narcotic medication. Patient encouraged to stay well-hydrated as well as to take a stool softener. Patient states that she has been having daily bowel movements without problem. - Vital Signs Vital signs: Temp Pulse Resp BP Pulse Ox 98.2 F 101 H 18 155/90 H 94 01/31/17 12:36 01/31/17 12:36 01/31/17 12:36 01/31/17 12:36 01/31/17 12:36 - Diagnostic Test Radiology reviewed: Image reviewed, Reports reviewed Discharge - Discharge Clinical Impression: Hx of essential hypertension, History of COPD Low back pain Qualifiers: Chronicity: unspecified Back pain laterality: right Sciatica presence: with sciatica Sciatica laterality: sciatica of right side Qualified Code(s): M54.41 - Lumbago with sciatica, right side Constipation Qualifiers: Constipation type: unspecified constipation type Qualified Code(s): K59.00 - Constipation, unspecified Disposition: HOME, SELF-CARE Instructions: Chronic Obstructive Lung Disease ([facility]), Constipation ([facility]), Oral Narcotic Medication ([facility]), Low Back Pain ([facility]), Sciatica ([facility]) Additional Instructions: Return immediately for any new or worsening symptoms Followup with your primary care provider, call today to make a followup appointment for a recheck Stay well-hydrated Use a walker to assist with ambulation Use your nebulizer treatments at home as prescribed You will need to take a stool softener to prevent any worsening constipation symptoms Prescriptions: Docusate Sodium [Colace 100 mg Capsule] 100 mg PO BID #30 capsule Oxycodone HCl/Acetaminophen [Percocet 5-325 mg Tablet] 1 tab PO ASDIR PRN #15 tablet PRN Reason: Polyethylene Glycol 3350 [Miralax] 17 gm PO DAILY #119 gm Walker [Folding Walker] 1 each MC ASDIR PRN #1 each PRN Reason: Forms: Elevated Blood Pressure Referrals: ROWENA CLEANING MD [Primary Care Provider] - Follow up tomorrow
[2017-01-31 15:37] VITALS: BP 146/69
== END 2017-01-31 15:19 | disposition home or self-care (01) ==
LOC: ER 12:30
DX: M54.41 Lumbago with sciatica, right side (principal); K59.00 Constipation, unspecified; J44.9 Chronic obstructive pulmonary disease, unspecified; I10 Essential (primary) hypertension; M25.551 Pain in right hip; Z87.891 Personal history of nicotine dependence
CPT/HCPCS: 94640; 99283; 73502; 72110; J7620

== ENCOUNTER → 2017-02-04 | Outpatient (CLI) | payer BC ==
--- NOTE | 2017-02-04 17:17 | RADIOLOGY REPORT (SQ) ---
EXAM DESCRIPTION: MRI LUMBAR SPINE WITHOUT COMPLETED DATE/TIME: 02/04/2017 2:45 pm REASON FOR STUDY: LUMBAGO S32.009A UNSP FRACTURE OF UNSP LUMBAR VERTEBRA, INIT FOR LUIGI COMPARISON: Lumbar spine plain films 01/31/2017 Bone scan 01/19/2017 MRI thoracic spine 01/17/2017 CT chest 12/02/2016 CT abdomen pelvis 12/02/2016 TECHNIQUE: Sagittal and Axial imaging includes T1, T2, STIR and gradient echo sequences. Coronal T2/ HASTE imaging. LIMITATIONS: None. FINDINGS: VISUALIZED UPPER ABDOMEN: Limited evaluation. No acute or suspicious findings suggested. SEGMENTATION: No transitional anatomy. The lowest well-developed disc space is labeled L5-S1. ALIGNMENT: Anatomic. VERTEBRAE: 25 to 50% upper endplate compression of T12. No significant retropulsion of bony fragment s. There is marrow edema. This is acute or early subacute fracture. There is central upper endplate depression at L5 without overall loss of height. There is adjacent m arrow edema. This is also likely an acute or subacute fracture. BONE MARROW: Marrow edema throughout the T12 vertebral body, marrow edema paralleling the upper endpl ate of L5. DISC SIGNAL: Diffuse decreased T2 weighted intervertebral disc signal. POSTERIOR ELEMENTS: Generally intact. No pars defect evident. HARDWARE: None in the spine. CORD AND CONUS: Normal in size and signal intensity. Conus at the L1 level. SOFT TISSUES: No aortic aneurysm seen. No bulky retroperitoneal adenopathy or mass. No paraspinal mas s or fluid. T10-11: Bilateral facet arthropathy. No central or foraminal stenosis. T11-12: Mild diffuse posterior disc bulge. Mild bilateral facet hypertrophy. T12-L1: Mild bilateral facet hypertrophy. No central or foraminal stenosis. L1-L2: No significant spinal stenosis or exit foraminal stenosis. Mild bilateral facet hypertrophy. L2-L3: Borderline central canal stenosis results broad diffuse posterior disc bulge and moderate bila teral facet and ligament hypertrophy. Mild bilateral inferior foraminal narrowing without exiting ne rve root impingement. L3-L4: Broad diffuse posterior disc bulging. Bulky bilateral facet and ligament hypertrophy. Border line central canal narrowing. Mild bilateral inferior foraminal narrowing without exiting L3 nerve r oot impingement L4-L5: Broad diffuse posterior disc bulging. Moderate bilateral facet and ligament hypertrophy. Bor derline central canal narrowing. Mild bilateral inferior foraminal narrowing without exiting L4 nerv e root impingement. L5-S1: Broad diffuse posterior disc bulging, mild bilateral facet and ligament hypertrophy. No centr al stenosis. Mild bilateral foraminal narrowing. SACRUM: Visualized upper sacrum intact. OTHER: No other significant findings. IMPRESSION: Acute or early subacute wedge compression at T12. Acute or early subacute upper endplat e compression deformity at L5. TECHNICAL DOCUMENTATION: JOB ID: [id number] [employer]- All Rights Reserved
== END ==
LOC: RAD 12:45
PROVIDERS: ATTEND Pain Medicine Interventional Pain Medicine
DX: S32.009A Unspecified fracture of unspecified lumbar vertebra, initial encounter for closed fracture (principal); X58.XXXA Exposure to other specified factors, initial encounter
CPT/HCPCS: 72148

== ENCOUNTER 2017-02-15 07:18 | Day surgery (SDC) | payer BC ==
[2017-02-09 11:44] LABS: HEMATOCRIT 34.5 % (36.0-47.0); HEMOGLOBIN 10.9 g/dL (12.0-15.5); HGB HCT DIFFERENCE -1.8; MEAN CORPUSCULAR HEMOGLOBIN 24.1 pg (27.0-33.4); MEAN CORPUSCULAR HGB CONC 31.8 g/dL (32.0-36.0); MEAN CORPUSCULAR VOLUME 76 fl (80-97); RED BLOOD COUNT 4.54 10^6/uL (3.72-5.28); RED CELL DISTRIBUTION WIDTH 18.8 % (11.5-14.0); WHITE BLOOD COUNT 9.7 10^3/uL (4.0-10.5)
[2017-02-09 11:45] LABS: PARTIAL THROMBOPLASTIN TIME 28.6 SEC (23.5-35.8); PROTHROMBIN TIME 13.1 SEC (11.4-15.4)
[2017-02-09 11:51] LABS: APPEARANCE,URINE CLOUDY; BILIRUBIN,URINE NEGATIVE (NEGATIVE); GLUCOSE, URINE NEGATIVE (NEGATIVE); KETONES,URINE NEGATIVE (NEGATIVE); LEUKOCYTE ESTERASE,URINE SMALL (NEGATIVE); NITRITE,URINE NEGATIVE (NEGATIVE); PROTEIN,URINE 30 mg/dL (NEGATIVE); URINE SPECIFIC GRAVITY 1.031; UROBILINOGEN,URINE NEGATIVE mg/dL (<2.0)
--- NOTE | 2017-02-10 13:25 | EKG REPORT ---
SEVERITY:- BORDERLINE ECG - SINUS RHYTHM WITH BLOCKED APCS LEFT AXIS DEVIATION : Confirmed by: Yaz Sanders 10-Feb-2017 13:24:35
[~2017-02-15 07:18] MED LIST changes: +CEFAZOLIN 1 GM/D5W RTU 1 GM/50 ML RTUPB IV PRN; -KETOROLAC TROMETHAMINE 0.45% 4 DROP/0.4 ML DROPERETTE OS PRN; +LACTATED RINGERS 1000 ML IV PRN; +LIDOCAINE 0.5% INJ-PF (5 MG/ML) 50 ML SDV SUBCUT PRN
[2017-02-15] MEDS ORDERED: LIDOCAINE 1% INJ-PF (10 MG/ML) 30 ML SDV ONE (07:39)
[2017-02-15 08:29] LABS: POTASSIUM 4.7 mmol/L (3.6-5.0)
[2017-02-15] MEDS ORDERED: MIDAZOLAM 2 MG/2 ML INJ ONE (09:53)
[2017-02-15] MEDS ORDERED: PROPOFOL INJ 200 MG/20 ML VIAL IV ONE (09:53)
[2017-02-15] MEDS ORDERED: FENTANYL CITRATE INJ/PF 100 MCG/2 ML AMPUL ONE (09:53)
[2017-02-15] MEDS ORDERED: OXYCODONE-ACETAMINOPHEN 5-325 MG TABLET PO PRN ×3 (10:15→12:32)
[2017-02-15] MEDS ORDERED: MORPHINE SULFATE 10 MG/ML INJ IV PRN (10:15)
[2017-02-15] MEDS ORDERED: FENTANYL CITRATE INJ/PF 100 MCG/2 ML AMPUL IV PRN ×3 (10:15)
[2017-02-15] MEDS ORDERED: DIPHENHYDRAMINE HCL 50 MG/ML VIAL IV PRN (10:15)
[2017-02-15] MEDS ORDERED: MEPERIDINE HCL/PF INJ 25 MG/1 ML DISP.SYRIN IV PRN (10:15)
[2017-02-15] MEDS ORDERED: PROMETHAZINE HCL INJ 25 MG/1 ML VIAL IV PRN ×2 (10:15)
[2017-02-15] MEDS ORDERED: CEFAZOLIN INJ 1 GM VIAL ONE (11:54)
--- NOTE | 2017-02-15 12:21 | OPERATIVE REPORT E ---
Operative Report NAME: BAIRON FU : 1945 AGE: 71Y DATE OF SURGERY: 02/15/2017 ROOM: PREOPERATIVE DIAGNOSIS: Vertebral body compression fracture at T12 and L5 POSTOPERATIVE DIAGNOSIS: Vertebral body compression fracture at T12 and L5 OPERATION: Percutaneous balloon kyphoplasty in a bipedicular approach for T12 and L5 vertebral bodies. SURGEON: DAWIT NERI M.D. ANESTHESIA: MAC with local ESTIMATED BLOOD LOSS: 10 mL IV FLUIDS: 500 mL of balanced crystalloid solution. PERIOPERATIVE ANTIBIOTICS: 1 gm Ancef given prior to incision. SPECIMENS REMOVED: None. OPERATIVE FINDINGS: Excellent methylmethacrylate cement spread T12 and L5 vertebral bodies without any extravasation. OPERATIVE INDICATIONS: The patient is a 71-year-old female with a recent fall and subsequent T12 and L5 compression fractures causing severe mid and lower back pain. The patient notably previously had compressions fractures at T7 and T9 which were kyphoplastied with excellent results and sustained a fall subsequent to this. The risks and benefits were discussed with the patient including but not limited to bleeding, bruising, infection, injury to nerves, arteries, veins, also bowel or bladder dysfunction, paralysis, potentially even , failure to ameliorate pain. The patient expressed understanding and agreed to proceed. OPERATIVE DETAIL: The patient was accompanied by Anesthesia staff to the operative suite where she was positioned in prone position. The patient's pressure points were checked and padded and standard ASA lines and monitors were applied. AP and lateral fluoroscopic views were obtained of the spine using two separate C-arms, one positioned on lateral view, and one in the AP view. The areas for intended kyphoplasty were marked and the patient was prepped with chlorhexidine gluconate solution which was allowed appropriate time to dry. She was then draped in sterile fashion using an [place] orthopedic drape and the C-arms were likewise draped into the field. Ancef was given. After a timeout procedure was performed as per [facility] standards, an area just lateral to the pedicle of the right T12 pedicle was marked and anesthetized using 1% Lidocaine. This was on a 25 gauge one-inch needle. Deeper tissues were infiltrated with a 3.5-inch 25 gauge needle making contact with the pedicle and infiltrating with buffered 1% Lidocaine. An incision was made using an 11 blade scalpel. Subsequently the halina tipped trocar was inserted using AP and lateral fluoroscopic views to direct the trocar to make contact with the lateral margin of the pedicle. The trocar was then advanced through the pedicle with relative ease taking care to not violate the superior or inferior aspects of the pedicle and being careful to maintain appropriate medialization through the body of the pedicle. The trocar was advanced just through the cortex of the vertebral body in good position and then a drill provided by the [employer] kit was advanced to a few mm posterior to the anterior margin of the vertebral body. The drill was cleared and then the drill was replaced. Subsequently a balloon was placed through the drill site and inflated to the pressures with excellent spread of the balloon in the vertebral body. Attention was turned to the opposite pedicle where the procedure was performed in the exact same fashion, this time using the beveled tip to obtain appropriate medialization of the trocar. Balloon was placed here as well and balloon tips were noted to be kissing. Cement was mixed on the back table with the assistance of the [employer] territory account representative. The balloons were withdrawn and a Stylet was replaced on the left-sided pedicle. The cement introducer was placed once cement had reached appropriate thickness into the right-sided trocar. Cement was injected taking great care to confirm no posterior spread or extravasation from the vertebral body. When this had been performed to an appropriate volume, attention was then turned to the opposite side where cement was injected. A total of 4 mL of methylmethacrylate cement was injected at the T12 vertebral body with 2 mm injected per site. The trocars were allowed to set for 2 minutes and then were subsequently removed from incision sites. Attention was then turned to the L5 vertebral body where the procedure was performed in the exact same fashion with a bipedicular approach and the halina tipped and ultimately beveled tipped Stylets placed into the trocars to obtain appropriate medialization. At this level, a total of 9.8 mL of methylmethacrylate cement was injected easily without any extravasation, 4.2 mL was injected on the right side and 5.6 on the left side. After another 2 minute interval, the trocars with Stylets in were removed. The skin was cleansed and bandages applied. The patient tolerated the procedure well and was accompanied by Anesthesia staff to the post-anesthesia recovery unit. She will be seen in followup in one day. DICTATING PHYSICIAN: DAWIT NERI M.D. [id number] PHY#: [id number] ID: [id number] JOB#: [id number] ACCT: [id number] cc:DAWIT NERI M.D. >
[2017-02-15] MEDS ORDERED: ONDANSETRON HCL INJ/PF 4 MG/2 ML SDV IV PRN (12:33)
[2017-02-15] MEDS ORDERED: OXYCODONE HCL IR 5 MG TABLET PO PRN (12:33)
--- NOTE | 2017-02-15 14:24 | RADIOLOGY REPORT (SQ) ---
EXAM DESCRIPTION: THORACOLUMBAR SPINE AP/LAT; NO CHG FLUORO COMPLETED DATE/TIME: 02/15/2017 1:33 pm REASON FOR STUDY: kyphoplasty T12 and L5 assisted with fluoro in OR S32.000A WEDGE COMPRESSION FRAC TURE OF UNSP LUMBAR VERTEBRA, COMPARISON: MRI lumbar spine 02/04/2017 FLUOROSCOPY TIME: 9.8 minutes Multiple digital fluoro images saved to PACS. TECHNIQUE: Intra-operative images acquired during surgical procedure to evaluate progress. NUMBER OF IMAGES: Cine fluoroscopic images. LIMITATIONS: None. FINDINGS: Intra procedural imaging and fluoroscopy during kyphoplasty. Please see the operative rep ort for further details IMPRESSION: Intra procedural imaging and fluoro COMMENT: Quality ID [id number]: Final reports for procedures using fluoroscopy that document radiation exp osure indices, or exposure time and number of fluorographic images (if radiation exposure indices are not available) Please consult full operative report of the attending physician for description of the procedure. TECHNICAL DOCUMENTATION: JOB ID: [id number] [employer]- All Rights Reserved
[2017-02-15 16:39] VITALS: BP 156/89
== END 2017-02-15 14:00 | disposition home or self-care (01) ==
LOC: OROUT 07:18
PROVIDERS: ATTEND Pain Medicine Interventional Pain Medicine
PROC: 0QU03JZ Supplement Lumbar Vertebra with Synthetic Substitute, Percutaneous Approach (ICD-10-PCS; 2017-02-15)
PROC: 0QS03ZZ Reposition Lumbar Vertebra, Percutaneous Approach (ICD-10-PCS; principal; 2017-02-15 09:30)
DX: S32.000A Wedge compression fracture of unspecified lumbar vertebra, initial encounter for closed fracture (principal); X58.XXXA Exposure to other specified factors, initial encounter; J44.9 Chronic obstructive pulmonary disease, unspecified; E11.9 Type 2 diabetes mellitus without complications; D64.9 Anemia, unspecified; K75.89 Other specified inflammatory liver diseases; I48.91 Unspecified atrial fibrillation; I25.10 Atherosclerotic heart disease of native coronary artery without angina pectoris; E78.5 Hyperlipidemia, unspecified; I10 Essential (primary) hypertension; E03.9 Hypothyroidism, unspecified; M11.9 Crystal arthropathy, unspecified; I25.2 Old myocardial infarction; Z79.4 Long term (current) use of insulin; Z79.891 Long term (current) use of opiate analgesic; Z79.82 Long term (current) use of aspirin; Z79.899 Other long term (current) drug therapy; Z79.84 Long term (current) use of oral hypoglycemic drugs; Z87.891 Personal history of nicotine dependence
CPT/HCPCS: 93005; 36415 ×2; 82947; 84132; 85027; 85610; 85730; 81001; 72080; 93010; 22514; 22515; Q9966; J2250; J0690 ×2; J3010; J3490; J2704; 1936

== ENCOUNTER 2017-03-20 19:42 | Inpatient (IN) | payer BC ==
[2017-03-20 20:07] LABS: HEMATOCRIT 35.6 % (36.0-47.0); HEMOGLOBIN 11.3 g/dL (12.0-15.5); HGB HCT DIFFERENCE -1.7; MEAN CORPUSCULAR HEMOGLOBIN 23.5 pg (27.0-33.4); MEAN CORPUSCULAR HGB CONC 31.7 g/dL (32.0-36.0); MEAN CORPUSCULAR VOLUME 74 fl (80-97); RED BLOOD COUNT 4.79 10^6/uL (3.72-5.28); RED CELL DISTRIBUTION WIDTH 19.7 % (11.5-14.0); WHITE BLOOD COUNT 15.6 10^3/uL (4.0-10.5)
[2017-03-20] MEDS ORDERED: ALBUTEROL SULFATE 0.083% NEB 2.5 MG/3 ML AMPUL NEB ONE (20:09)
[2017-03-20] MEDS ORDERED: METHYLPREDNISOLONE INJ 125 MG/2 ML SDV IV ONE (20:09)
--- NOTE | 2017-03-20 20:09 | ER Document Report ---
ED Respiratory Problem <JESSENIAPARK - Last Filed: 03/20/17 22:22> - General Mode of Arrival: Medic Information source: Patient TRAVEL OUTSIDE OF THE [place] IN LAST 30 DAYS: No <GABY HUFFMAN - Last Filed: 03/20/17 22:30> - General Chief Complaint: Breathing Difficulty Stated Complaint: BREATHING PROBLEMS Time Seen by Provider: 03/20/17 19:56 Notes: Patient is a 71 year old female presenting to the emergency department for dyspnea x3 days. Patient states she has a productive cough with thick yellow sputum. Patient has felt clammy and had chills. Patient is on 2 L O2 at night and as needed during the day. Patient has had 2 balloon Kyphoplasty in the last month. Patient has a history of osteoarthritis, CAD, COPD, type II diabetes mellitus, hypertension, hypercholeseterolemia, depression, hypothyroidism and SOTO syndrome. (GABY HUFFMAN) - Related Data Allergies/Adverse Reactions: No Known Allergies Allergy (Verified 03/20/17 20:25) Past Medical History - Social History Smoking Status: Former Smoker <PARK RUELAS - Last Filed: 03/20/17 22:22> - General Information source: Patient, Relative - spouse - Social History Smoking Status: Former Smoker Cigarette use (# per day): No Chew tobacco use (# tins/day): No Smoking Education Provided: No Frequency of alcohol use: None Drug Abuse: None Family History: CAD, CVA, DM, Hyperlipidemia, Hypertension, Malignancy, Thyroid Disfunction - Medical History Medical History: Other - SOTO syndrome - Past Medical History Cardiac Medical History: Reports: Hx Atrial Fibrillation, Hx Coronary Artery Disease, Hx Heart Attack - , Hx Hypercholesterolemia, Hx Hypertension Pulmonary Medical History: Reports: Hx Asthma - INHALER, Hx COPD, Hx Pneumonia Endocrine Medical History: Reports: Hx Diabetes Mellitus Type 2, Hx Hypothyroidism GI Medical History: Reports: Hx Cirrhosis Musculoskeltal Medical History: Reports Hx Arthritis Psychiatric Medical History: Reports: Hx Depression Past Surgical History: Reports: Hx Abdominal Surgery - HERNIA X2, Hx Breast Surgery - lump removal x2, Hx Cardiac Catheterization, Hx Orthopedic Surgery - back, Hx Umbilical Hernia - Immunizations Immunizations up to date: Yes Hx Diphtheria, Pertussis, Tetanus Vaccination: No Hx Pneumococcal Vaccination: 04/03/12 <GABY HUFFMAN - Last Filed: 03/20/17 22:30> Review of Systems - Review of Systems Constitutional: See HPI, Chills. denies: Fever EENT: No symptoms reported Cardiovascular: No symptoms reported Respiratory: See HPI, Cough, Short of breath, Sputum, Wheezing Gastrointestinal: No symptoms reported Genitourinary: No symptoms reported Female Genitourinary: No symptoms reported Musculoskeletal: No symptoms reported Skin: No symptoms reported Hematologic/Lymphatic: No symptoms reported Neurological/Psychological: No symptoms reported -: Yes All other systems reviewed and negative <GABY HUFFMAN - Last Filed: 03/20/17 22:30> Physical Exam <PARK RUELAS - Last Filed: 03/20/17 22:22> <GABY HUFFMAN - Last Filed: 03/20/17 22:30> - Vital signs Vitals: Temp 97.7 F 03/20/17 19:44 - Notes Notes: GENERAL: Alert, interacts well. Mild distress. HEAD: Normocephalic, atraumatic. EYES: Appear normal. Pupils equal, round, and reactive to light. ENT: Moist mucus membranes. BiPAP in place. NECK: Full range of motion. Supple. Trachea midline. LUNGS: Tachypnea. Diffuse inspiratory and expiratory wheezing, expiratory wheezing is greater than the inspiratory wheezing. Air entrapment. Retractions. 99% O2 saturation with BiPAP. HEART: Mild tachycardia. Regular rhythm. No murmurs, gallops, or rubs. ABDOMEN: Soft, non-tender. Non-distended. Normal bowel sounds. EXTREMITIES: Moves all 4 extremities spontaneously. Normal strength. No peripheral edema. NEUROLOGICAL: Alert and oriented x3. Normal speech. No focal neurological deficits. GCS 15. PSYCH: Normal affect, normal mood. SKIN: Warm, dry, normal turgor. No rashes or lesions noted. (GABY HUFFMAN) Course - Laboratory Result Diagrams: 03/20/17 19:52 03/20/17 19:52 - Diagnostic Test Radiology reviewed: Image reviewed, Reports reviewed - Chest x-ray shows COPD, mild vascular prominence in the lower lung de leon without pulmonary edema, no infiltrates. - EKG Interpretation by Pa EKG shows normal: Sinus rhythm, [place], Intervals, QRS Complexes, ST-T Waves Rate: Tachycardia - 116 When compared to previous EKG there are: No significant change - Consults Dr. Millard Time consulted: 22:22 Consulted provider: will see as inpatient - Telemetry admit to Dr. Cleaning <PARK RUELAS - Last Filed: 03/20/17 22:22> - Laboratory Result Diagrams: 03/20/17 19:52 03/20/17 19:52 <GABY HUFFMAN - Last Filed: 03/20/17 22:30> - Vital Signs Vital signs: Temp Pulse Resp BP Pulse Ox 97.7 F 21 H 164/95 H 98 03/20/17 19:44 03/20/17 22:02 03/20/17 22:02 03/20/17 22:02 - Laboratory Laboratory results interpreted by me: 03/20/17 03/20/17 03/20/17 19:52 19:52 20:10 WBC 15.6 H Hgb 11.3 L Hct 35.6 L MCV 74 L MCH 23.5 L MCHC 31.7 L RDW 19.7 H Seg Neuts % (Manual) 95 H Lymphocytes % (Manual) 3 L Monocytes % (Manual) 1 L Metamyelocytes % 1 H Abs Neuts (Manual) 15.0 H BUN 21 H Glucose 339 H AST 62 H ALT 53 H Alkaline Phosphatase 130 H Urine Glucose (UA) 150 H Critical Care Note - Critical Care Note Total time excluding time spent on procedures (mins): 35 <PARK RUELAS - Last Filed: 03/20/17 22:22> Discharge - Discharge Admitting Provider: Kelton Millard covering Unit Admitted: Telemetry <PARK RUELAS - Last Filed: 03/20/17 22:22> <GABY HUFFMAN - Last Filed: 03/20/17 22:30> - Discharge Clinical Impression: Acute exacerbation of chronic obstructive pulmonary disease (COPD) Disposition: ADMITTED INPATIENT Referrals: ROWENA CLEANING MD [Primary Care Provider] - Follow up as needed Scribe Attestation: 03/20/17 22:25 I personally performed the services described in the documentation, reviewed and edited the documentation which was dictated to the scribe in my presence, and it accurately records my words and actions. (PARK RUELAS) Scribe Documentation - Scribe Written by Scribe:: Denis Haywood 03/20/2017 21:09 acting as scribe for :: Jessenia <GABY HUFFMAN - Last Filed: 03/20/17 22:30>
[2017-03-20 20:16] LABS: ALANINE AMINOTRANSFERASE 53 U/L (9-52); ALBUMIN 4.6 g/dL (3.5-5.0); ALKALINE PHOSPHATASE 130 U/L (38-126); ANION GAP 15 (5-19); ASPARTATE AMINO TRANSFERASE 62 U/L (14-36); BILIRUBIN,DIRECT 0.4 mg/dL (0.0-0.4); BILIRUBIN,TOTAL 0.5 mg/dL (0.2-1.3); BLOOD UREA NITROGEN 21 mg/dL (7-20); CALCIUM 9.2 mg/dL (8.4-10.2); CARBON DIOXIDE 24 mmol/L (22-30); CHLORIDE 101 mmol/L (98-107); CREATINE KINASE 36 U/L (30-135); CREATININE RESULT 0.75 mg/dL (0.52-1.25); GLUCOSE 339 mg/dL (75-110); POTASSIUM 4.3 mmol/L (3.6-5.0); SODIUM 139.6 mmol/L (137-145); TOTAL PROTEIN 7.5 g/dL (6.3-8.2)
--- NOTE | 2017-03-20 20:25 | RADIOLOGY REPORT (SQ) ---
EXAM DESCRIPTION: CHEST SINGLE VIEW COMPLETED DATE/TIME: 03/20/2017 7:58 pm REASON FOR STUDY: resp distress COMPARISON: CT chest 01/17/2017, 12/02/2016 Chest films 12/02/2016, 12/24/2015 EXAM PARAMETERS: NUMBER OF VIEWS: One view. TECHNIQUE: Single frontal radiographic view of the chest acquired. RADIATION DOSE: NA LIMITATIONS: None. FINDINGS: LUNGS AND PLEURA: Upper lobes are hyperinflated and hyperlucent from obstructive disease. In the mid and lower lungs there is mild pulmonary vascular prominence without pulmonary edema. No pleural effusions. No pneumothorax. MEDIASTINUM AND HILAR STRUCTURES: No masses. Contour normal. HEART AND VASCULAR STRUCTURES: Heart normal in size. BONES: No acute findings. HARDWARE: None in the chest. OTHER: No other significant finding. IMPRESSION: Obstructive lung disease. TECHNICAL DOCUMENTATION: JOB ID: [id number]
[2017-03-20 20:38] LABS: APPEARANCE,URINE CLEAR; BILIRUBIN,URINE NEGATIVE (NEGATIVE); GLUCOSE, URINE 150 mg/dL (NEGATIVE); KETONES,URINE NEGATIVE (NEGATIVE); LEUKOCYTE ESTERASE,URINE NEGATIVE (NEGATIVE); NITRITE,URINE NEGATIVE (NEGATIVE); PROTEIN,URINE NEGATIVE (NEGATIVE); URINE SPECIFIC GRAVITY 1.008; UROBILINOGEN,URINE NEGATIVE mg/dL (<2.0)
[2017-03-20 20:39] LABS: CREATINE KINASE MB 2.26 ng/mL (<4.55)
[2017-03-20 20:40] LABS: TROPONIN I < 0.012 ng/mL
[2017-03-20 20:51] LABS: BASOPHILS % (MANUAL) 0 % (0-2); EOSINOPHILS % (MANUAL) 0 % (0-6); LYMPHOCYTES % (MANUAL) 3 % (13-45); TOTAL CELLS COUNTED 100
[2017-03-20 20:54] LABS: HYPOCHROMASIA SLIGHT; POLYCHROMASIA SLIGHT; TOXIC GRANULATION SLIGHT; TOXIC VACUOLATION PRESENT
[2017-03-20 20:55] LABS: ANISOCYTOSIS 2+; MICROCYTOSIS 1+; OVALOCYTES SLIGHT; POIKILOCYTOSIS SLIGHT; TARGET CELLS SLIGHT; TEAR DROP CELLS SLIGHT
[2017-03-20] MEDS ORDERED: IPRATROPIUM/ALBUTEROL 0.5-2.5 MG/3 ML AMPUL NEB ONE (22:18)
[2017-03-20] MEDS ORDERED: LEVOFLOXACIN 750 MG/D5W RTU 750 MG/150 ML RTUPB IV ONE (22:18)
[2017-03-20] MEDS ORDERED: ONDANSETRON HCL INJ/PF 4 MG/2 ML SDV IV ONE (22:32)
--- NOTE | 2017-03-20 23:33 | EKG REPORT ---
SEVERITY:- OTHERWISE NORMAL ECG - SINUS TACHYCARDIA : Confirmed by: Yaz Sanders 20-Mar-2017 23:32:10
[2017-03-21] MEDS ORDERED: IPRATROPIUM/ALBUTEROL 0.5-2.5 MG/3 ML AMPUL NEB PRN (04:28)
[2017-03-21] MEDS ORDERED: DEXTROSE 50%-WATER SYRINGE 25 GM/50 ML DOSE IV PRN (04:33)
[2017-03-21] MEDS ORDERED: DEXTROSE 40% GEL 15 GM TUBE PO PRN (04:33)
[2017-03-21] MEDS ORDERED: DEXTROSE 40% GEL 15 GM TUBE X 2 PO PRN (04:33)
[2017-03-21] MEDS ORDERED: GLUCAGON,HUMAN RECOMB 1 MG INJ IM PRN (04:33)
[2017-03-21] MEDS ORDERED: DEXTROSE 50%-WATER SYRINGE 12.5 GM/25 ML DOSE IV PRN (04:33)
[2017-03-21] MEDS ORDERED: CYCLOBENZAPRINE HCL 10 MG TABLET PO PRN (05:15)
[2017-03-21] MEDS ORDERED: CHLORPHENIRAMINE MALEATE 4 MG TABLET PO PRN ×2 (05:15→19:56)
[2017-03-21] MEDS ORDERED: WALKER MC PRN (05:15)
[2017-03-21] MEDS ORDERED: OXYCODONE HCL IR 5 MG TABLET PO PRN (05:15)
[2017-03-21] MEDS: METHYLPREDNISOLONE INJ 125 MG/2 ML SDV IV SCH ×3 (05:55→21:57)
[2017-03-21] MEDS: INSULIN REG, HUMAN 100 UNIT/ML 3 ML VIAL (PYX) SUBCUT PRN ×3 (07:34→20:07)
[2017-03-21] MEDS: GLIMEPIRIDE 4 MG TABLET PO SCH (07:34)
[2017-03-21] MEDS ORDERED: CALCIUM CARBONATE 250 MG/VITAMIN D3 125 UNIT TABLET PO SCH (10:00)
[2017-03-21] MEDS ORDERED: LANSOPRAZOLE 30 MG TAB.RAP.DR PO SCH (10:00)
[2017-03-21] MEDS ORDERED: LEVOTHYROXINE SODIUM 0.025 MG TABLET PO SCH ×2 (10:00→20:00)
[2017-03-21] MEDS ORDERED: LEVOTHYROXINE SODIUM 0.075 MG TABLET PO SCH (10:00)
[2017-03-21] MEDS: SERTRALINE HCL 50 MG TABLET PO SCH (10:44)
[2017-03-21] MEDS: ASPIRIN 81 MG TABLET, CHEWABLE PO SCH (10:44)
[2017-03-21] MEDS: DOCUSATE SODIUM 100 MG CAPSULE PO SCH ×2 (10:45→19:15)
[2017-03-21] MEDS: METFORMIN HCL 500 MG TABLET PO SCH ×2 (10:46→19:15)
[2017-03-21] MEDS: GABAPENTIN 300 MG CAPSULE PO SCH ×3 (10:47→19:15)
[2017-03-21] MEDS: FUROSEMIDE 40 MG TABLET PO SCH (10:48)
[2017-03-21] MEDS: LOSARTAN POTASSIUM 50 MG TABLET PO SCH (10:49)
[2017-03-21] MEDS: POLYETHYLENE GLYCOL 3350 POWDER 17 GM/1 PACKET PO SCH (10:49)
[2017-03-21] MEDS: TIOTROPIUM BROMIDE DPI 5 CAP/KIT (18 MCG/CAP) IH SCH (10:55)
[2017-03-21] MEDS: LANSOPRAZOLE 30 MG TAB.RAP.DR PO SCH (11:01)
[2017-03-21] MEDS: IPRATROPIUM/ALBUTEROL 0.5-2.5 MG/3 ML AMPUL NEB PRN ×2 (12:18→20:13)
--- NOTE | 2017-03-21 19:55 | PDOC H&P ---
History of Present Illness Admission Date/PCP: 03/21/17 00:06 ROWENA CLEANING MD History of Present Illness: BAIRON FU is a 71 year old female, She has a history of chronic obstructive pulmonary disease stage IV she came to the emergency room last night for the evaluation of respiratory distress. She was evaluated in the emergency room she was found to have a low oxygen saturation. She was managed in the emergency room with positive pressure noninvasive ventilatory device, BiPAP, she was also treated with bronchodilators, IV Solu-Medrol, after stabilization in the emergency room hospital admission was advised.She has other comorbid conditions including pulmonary hypertension, type 2 diabetes mellitus, liver cirrhosis secondary to [place] Past Medical History Cardiac Medical History: Reports: Atrial Fibrillation, Coronary Artery Disease, Myocardial Infarction - , Hyperlipidema, Hypertension Pulmonary Medical History: Reports: Asthma - INHALER, Chronic Obstructive Pulmonary Disease (COPD), Pneumonia Endocrine Medical History: Reports: Diabetes Mellitus Type 2, Hypothyroidism GI Medical History: Reports: Cirrhosis Denies: Hepatitis, Hiatal Hernia Musculoskeltal Medical History: Reports: Arthritis Psychiatric Medical History: Reports: Depression Hematology: Reports: Anemia Denies: Sickle Cell Disease Past Surgical History Past Surgical History: Reports: Cardiac Catheterization, Orthopedic Surgery - back, Other - Kyphoplasty of the thoracic spine Social History Smoking Status: Former Smoker Last Time Smoked: july 2016 Frequency of Alcohol Use: None Hx Recreational Drug Use: No Drugs: None Hx Prescription Drug Abuse: No - Advance Directive Resuscitation Status: Full Code Family History Family History: CAD, CVA, DM, Hyperlipidemia, Hypertension, Malignancy, Thyroid Disfunction Parental Family History Reviewed: Yes Children Family History Reviewed: Yes Sibling(s) Family History Reviewed.: Yes Medication/Allergy Home Medications: Aspirin [Aspirin 81 mg Chewable Tablet] 81 mg PO DAILY 03/21/17 Atorvastatin Calcium [Lipitor 80 mg Tablet] 80 mg PO QHS 03/21/17 Calcium Carbonate/Vitamin D3 [Calcium 500-Vit D3 400 Tablet] 1 tab PO DAILY Chlorpheniramine Maleate [Chlor-Trimeton 4 mg Tablet] 4 mg PO Q6HP PRN 03/21/17 Cyclobenzaprine HCl [Flexeril 10 mg Tablet] 10 mg PO Q8HP PRN 03/21/17 Docusate Sodium [Colace 100 mg Capsule] 100 mg PO BID 03/21/17 Furosemide [Lasix 40 mg Tablet] 40 mg PO DAILY 03/21/17 Gabapentin [Neurontin 300 mg Capsule] 300 mg PO Q8 03/21/17 Glimepiride [Amaryl 4 mg Tablet] 4 mg PO WBRKFST 03/21/17 Ipratropium/Albuterol Sulfate [Iprat-Albut 0.5-3(2.5) mg/3 ml] 3 ml NEB Q6HP PRN 03/21/17 Levothyroxine Sodium [Synthroid 0.025 mg Tablet] 0.025 mg PO DAILY 03/21/17 Levothyroxine Sodium [Synthroid] 200 mcg PO DAILY 03/21/17 Allergies/Adverse Reactions: No Known Allergies Allergy (Verified 03/20/17 20:25) Review of Systems Constitutional: PRESENT: fatigue Eyes: ABSENT: visual disturbances Ears: ABSENT: hearing changes Cardiovascular: ABSENT: chest pain, dyspnea on exertion, edema, orthropnea, palpitations Respiratory: PRESENT: cough, dyspnea, sputum Gastrointestinal: ABSENT: abdominal pain, constipation, diarrhea, hematemesis, hematochezia, nausea, vomiting Genitourinary: ABSENT: dysuria, hematuria Musculoskeletal: ABSENT: joint swelling Integumentary: ABSENT: rash, wounds Neurological: ABSENT: abnormal gait, abnormal speech, confusion, dizziness, focal weakness, syncope Psychiatric: ABSENT: anxiety, depression, homidical ideation, suicidal ideation Endocrine: ABSENT: cold intolerance, heat intolerance, menstrual abnormalities, polydipsia, polyuria Hematologic/Lymphatic: ABSENT: easy bleeding, easy bruising, lymphadenopathy Physical Exam Vital Signs: Temp Pulse Resp BP Pulse Ox 97.3 F 91 18 137/86 H 97 03/21/17 15:16 03/21/17 15:16 03/21/17 15:16 03/21/17 15:16 03/21/17 15:16 Intake & Output 03/20/17 03/21/17 03/22/17 06:59 06:59 06:59 Intake Total 100 1140 Output Total 100 1000 Balance 0 140 General appearance: PRESENT: severe distress Head exam: PRESENT: atraumatic, normocephalic Eye exam: PRESENT: conjunctiva pink, EOMI, PERRLA. ABSENT: scleral icterus Ear exam: PRESENT: normal external ear exam Mouth exam: PRESENT: moist, tongue midline Neck exam: PRESENT: full ROM Respiratory exam: PRESENT: wheezes Cardiovascular exam: PRESENT: RRR, +S1, +S2 Pulses: PRESENT: normal dorsalis pedis pul, +2 pedal pulses bilateral Vascular exam: PRESENT: normal capillary refill GI/Abdominal exam: PRESENT: normal bowel sounds, soft Rectal exam: PRESENT: deferred Neurological exam: PRESENT: alert, awake, oriented to person, oriented to place , oriented to time, oriented to situation, CN II-XII grossly intact Psychiatric exam: PRESENT: appropriate affect, normal mood Skin exam: PRESENT: dry, intact, warm Results Impressions: Chest X-Ray 03/20/17 19:44 IMPRESSION: Obstructive lung disease. Assessment & Plan - Diagnosis (1) Acute hypoxemic respiratory failure Is this a current diagnosis for this admission?: Yes Plan: Patient was admitted for the evaluation and management of acute respiratory distress due to acute COPD exacerbation, the acute respiratory failure was treated with noninvasive positive pressure ventilation with BiPAP, she is tolerating the device quite well, maintaining adequate oxygenation (2) Acute exacerbation of chronic obstructive pulmonary disease (COPD) Is this a current diagnosis for this admission?: Yes Plan: She has acute COPD exacerbation with wheezing, she is on intravenous Solu-Medrol , Bronchodilators and IV antibiotic (3) 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) Is this a current diagnosis for this admission?: Yes (4) Type 2 diabetes mellitus Qualifiers: Diabetes mellitus complication status: with neurologic complications Diabetes mellitus complication detail: with other neurological complication Diabetes mellitus terminal gauger insulin use: with terminal gauger use Qualified Code(s) : E11.49 - Type 2 diabetes mellitus with other diabetic neurological complication; 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
[2017-03-21] MEDS ORDERED: CALCIUM CARBONATE PO SCH (20:00)
[2017-03-21] MEDS ORDERED: VITAMIN D3 PO SCH (20:00)
[2017-03-21] MEDS ORDERED: FUROSEMIDE 40 MG TABLET PO SCH (20:00)
[2017-03-21] MEDS ORDERED: GLIMEPIRIDE 4 MG TABLET PO SCH (20:00)
[2017-03-21] MEDS ORDERED: [UNRECOGNIZED DRUG - OTHER] PO SCH (20:00)
[2017-03-21] MEDS ORDERED: ASPIRIN 81 MG TABLET, CHEWABLE PO SCH (20:00)
[2017-03-21] MEDS ORDERED: DOCUSATE SODIUM 100 MG CAPSULE PO SCH (20:00)
[2017-03-21 20:41] LABS: PROTHROMBIN TIME 13.6 SEC (11.4-15.4)
[2017-03-21 20:42] LABS: PARTIAL THROMBOPLASTIN TIME 26.2 SEC (23.5-35.8)
[2017-03-21 20:50] LABS: LIPASE 72.7 U/L (23-300); MAGNESIUM 1.7 mg/dL (1.6-2.3); PHOSPHORUS 3.7 mg/dL (2.5-4.5)
[2017-03-21 20:52] LABS: AMYLASE < 30 U/L (30-110)
[2017-03-21] MEDS ORDERED: ENOXAPARIN SODIUM INJ 30 MG/0.3 ML DISP.SYRIN SUBCUT ONE (21:00)
[2017-03-21 21:03] LABS: CREATINE KINASE MB 2.54 ng/mL (<4.55)
[2017-03-21 21:21] LABS: TROPONIN I < 0.012 ng/mL
[2017-03-21 21:34] LABS: THYROID STIMULATING HORMONE 1.08 uIU/mL (0.47-4.68)
[2017-03-21] MEDS: ATORVASTATIN CALCIUM 80 MG TABLET PO SCH (21:57)
[2017-03-21] MEDS ORDERED: ATORVASTATIN CALCIUM 80 MG TABLET PO SCH (22:00)
[2017-03-21 22:10] LABS: APPEARANCE,URINE SLIGHTLY-CLOUDY; BILIRUBIN,URINE NEGATIVE (NEGATIVE); GLUCOSE, URINE >=500 mg/dL (NEGATIVE); KETONES,URINE NEGATIVE (NEGATIVE); LEUKOCYTE ESTERASE,URINE NEGATIVE (NEGATIVE); NITRITE,URINE NEGATIVE (NEGATIVE); PROTEIN,URINE NEGATIVE (NEGATIVE); URINE SPECIFIC GRAVITY 1.021; UROBILINOGEN,URINE NEGATIVE mg/dL (<2.0)
[2017-03-21 22:34] LABS: URINE BARBITURATES SCREEN NEGATIVE; URINE METHADONE SCREEN NEGATIVE; URINE OPIATES LOW NEGATIVE; URINE PHENCYCLIDINE SCREEN NEGATIVE
[2017-03-22 03:40] LABS: HEMATOCRIT 33.6 % (36.0-47.0); HEMOGLOBIN 10.3 g/dL (12.0-15.5); HGB HCT DIFFERENCE -2.7; MEAN CORPUSCULAR HGB CONC 30.8 g/dL (32.0-36.0); MEAN CORPUSCULAR VOLUME 75 fl (80-97); RED CELL DISTRIBUTION WIDTH 19.7 % (11.5-14.0); WHITE BLOOD COUNT 23.5 10^3/uL (4.0-10.5)
[2017-03-22 03:53] LABS: BAND NEUTROPHILS % (MANUAL) 2 % (3-5); BASOPHILS % (MANUAL) 0 % (0-2); EOSINOPHILS % (MANUAL) 0 % (0-6); LYMPHOCYTES % (MANUAL) 3 % (13-45); TOTAL CELLS COUNTED 100
[2017-03-22 03:58] LABS: ANISOCYTOSIS 2+; HYPOCHROMASIA 1+; MICROCYTOSIS 1+; OVALOCYTES 1+; POIKILOCYTOSIS 1+; TARGET CELLS SLIGHT; TEAR DROP CELLS SLIGHT; TOXIC GRANULATION 1+
[2017-03-22 04:04] LABS: ALANINE AMINOTRANSFERASE 39 U/L (9-52); ALKALINE PHOSPHATASE 102 U/L (38-126); ANION GAP 15 (5-19); ASPARTATE AMINO TRANSFERASE 32 U/L (14-36); BILIRUBIN,DIRECT 0.3 mg/dL (0.0-0.4); BILIRUBIN,TOTAL 0.3 mg/dL (0.2-1.3); BLOOD UREA NITROGEN 33 mg/dL (7-20); CALCIUM 10.1 mg/dL (8.4-10.2); CARBON DIOXIDE 21 mmol/L (22-30); CHLORIDE 106 mmol/L (98-107); CREATININE RESULT 0.84 mg/dL (0.52-1.25); GLUCOSE 326 mg/dL (75-110); POTASSIUM 4.7 mmol/L (3.6-5.0); SODIUM 141.6 mmol/L (137-145); TOTAL PROTEIN 6.5 g/dL (6.3-8.2)
[2017-03-22 04:15] LABS: CREATINE KINASE MB 2.76 ng/mL (<4.55)
[2017-03-22 04:21] LABS: TROPONIN I < 0.012 ng/mL
[2017-03-22] MEDS: METHYLPREDNISOLONE INJ 125 MG/2 ML SDV IV SCH ×3 (05:22→22:39)
[2017-03-22] MEDS: LEVOTHYROXINE SODIUM 0.075 MG TABLET PO SCH (05:23)
[2017-03-22] MEDS ORDERED: LEVOTHYROXINE SODIUM 0.075 MG TABLET PO SCH (06:00)
[2017-03-22] MEDS: IPRATROPIUM/ALBUTEROL 0.5-2.5 MG/3 ML AMPUL NEB PRN ×3 (07:35→19:44)
[2017-03-22] MEDS: INSULIN REG, HUMAN 100 UNIT/ML 3 ML VIAL (PYX) SUBCUT PRN ×3 (08:14→23:45)
[2017-03-22] MEDS: GLIMEPIRIDE 4 MG TABLET PO SCH (08:15)
[2017-03-22 11:09] LABS: TROPONIN I < 0.012 ng/mL
[2017-03-22] MEDS: LOSARTAN POTASSIUM 50 MG TABLET PO SCH (11:10)
[2017-03-22] MEDS: DOCUSATE SODIUM 100 MG CAPSULE PO SCH ×2 (11:11→17:38)
[2017-03-22] MEDS: ASPIRIN 81 MG TABLET, CHEWABLE PO SCH (11:12)
[2017-03-22] MEDS: CALCIUM CARBONATE 250 MG/VITAMIN D3 125 UNIT TABLET PO SCH (11:12)
[2017-03-22] MEDS: SERTRALINE HCL 50 MG TABLET PO SCH (11:12)
[2017-03-22] MEDS: FUROSEMIDE 40 MG TABLET PO SCH (11:13)
[2017-03-22] MEDS: METFORMIN HCL 500 MG TABLET PO SCH ×2 (11:13→17:37)
[2017-03-22] MEDS: GABAPENTIN 300 MG CAPSULE PO SCH ×3 (11:14→17:38)
[2017-03-22] MEDS: POLYETHYLENE GLYCOL 3350 POWDER 17 GM/1 PACKET PO SCH (11:15)
[2017-03-22] MEDS: ENOXAPARIN SODIUM INJ 30 MG/0.3 ML DISP.SYRIN SUBCUT SCH (11:19)
[2017-03-22] MEDS: TIOTROPIUM BROMIDE DPI 5 CAP/KIT (18 MCG/CAP) IH SCH (11:23)
--- NOTE | 2017-03-22 20:54 | PDOC PROGRESS REPORT ---
Subjective Progress Note for:: 03/22/17 Subjective:: Patient was admitted for the management of acute COPD exacerbation, she is on IV Solu-Medrol, there is associated leukocytosis with a left shift this is due to the intravenous Solu-Medrol. She gets very short of breath on minimal exertion Physical Exam Vital Signs: Temp Pulse Resp BP Pulse Ox 98.0 F 81 20 140/70 H 100 03/22/17 15:39 03/22/17 16:32 03/22/17 16:32 03/22/17 15:39 03/22/17 16:32 Intake & Output 03/21/17 03/22/17 03/23/17 06:59 06:59 06:59 Intake Total 100 1165 1240 Output Total 100 1000 Balance 0 165 1240 Weight 79.379 kg General appearance: PRESENT: severe distress Head exam: PRESENT: atraumatic, normocephalic Eye exam: PRESENT: PERRLA Neck exam: PRESENT: full ROM Respiratory exam: PRESENT: wheezes Cardiovascular exam: PRESENT: RRR, +S1, +S2 Pulses: PRESENT: normal dorsalis pedis pul, +2 pedal pulses bilateral Vascular exam: PRESENT: normal capillary refill GI/Abdominal exam: PRESENT: normal bowel sounds, soft Rectal exam: PRESENT: deferred Neurological exam: PRESENT: alert, awake, oriented to person, oriented to place , oriented to time, oriented to situation, CN II-XII grossly intact Psychiatric exam: PRESENT: appropriate affect, normal mood Skin exam: PRESENT: dry, intact, warm Results Laboratory Results: 03/22/17 03:23 03/22/17 03:23 03/21/17 03/21/17 03/21/17 20:27 20:27 21:40 WBC RBC Hgb Hct MCV MCH MCHC RDW Plt Count Seg Neutrophils % Lymphocytes % Monocytes % Eosinophils % Basophils % Absolute Neutrophils Absolute Lymphocytes Absolute Monocytes Absolute Eosinophils Absolute Basophils Sodium Potassium Chloride Carbon Dioxide Anion Gap BUN Creatinine Est GFR ( Amer) Est GFR (Non-Af Amer) Glucose Calcium Phosphorus 3.7 Magnesium 1.7 Total Bilirubin AST ALT Alkaline Phosphatase Ammonia < 8.7 L Total Protein Albumin Amylase < 30 L Lipase 72.7 TSH 1.08 Free T4 1.01 Urine Color Urine Appearance Urine pH Ur Specific [place] Urine Protein Urine Glucose (UA) Urine Ketones Urine Blood Urine Nitrite Ur Leukocyte Esterase Urine WBC (Auto) Urine RBC (Auto) 03/21/17 03/22/17 03/22/17 21:45 03:23 03:23 WBC 23.5 H RBC 4.50 Hgb 10.3 L Hct 33.6 L MCV 75 L MCH 23.0 L MCHC 30.8 L RDW 19.7 H Plt Count 256 Seg Neutrophils % Not Reportable Lymphocytes % Not Reportable Monocytes % Not Reportable Eosinophils % Not Reportable Basophils % Not Reportable Absolute Neutrophils Not Reportable Absolute Lymphocytes Not Reportable Absolute Monocytes Not Reportable Absolute Eosinophils Not Reportable Absolute Basophils Not Reportable Sodium 141.6 Potassium 4.7 Chloride 106 Carbon Dioxide 21 L Anion Gap 15 BUN 33 H Creatinine 0.84 Est GFR ( Amer) > 60 Est GFR (Non-Af Amer) > 60 Glucose 326 H Calcium 10.1 Phosphorus Magnesium Total Bilirubin 0.3 AST 32 ALT 39 Alkaline Phosphatase 102 Ammonia Total Protein 6.5 Albumin 4.0 Amylase Lipase TSH Free T4 Urine Color YELLOW Urine Appearance SLIGHTLY-CLOUDY Urine pH 5.0 Ur Specific [place] 1.021 Urine Protein NEGATIVE Urine Glucose (UA) >=500 H Urine Ketones NEGATIVE Urine Blood NEGATIVE Urine Nitrite NEGATIVE Ur Leukocyte Esterase NEGATIVE Urine WBC (Auto) 2 Urine RBC (Auto) 0 03/21/17 17:00 Sputum Gram Stain - Final 03/21/17 17:00 Sputum Sputum Culture - Final 03/21/17 03/21/17 03/22/17 20:27 20:27 03:23 CK-MB (CK-2) 2.54 2.76 Troponin I < 0.012 < 0.012 NT-Pro-B Natriuret Pep 218 03/22/17 10:14 CK-MB (CK-2) 2.60 Troponin I < 0.012 NT-Pro-B Natriuret Pep Impressions: Chest X-Ray 03/20/17 19:44 IMPRESSION: Obstructive lung disease. Assessment & Plan - Diagnosis (1) Acute hypoxemic respiratory failure Is this a current diagnosis for this admission?: Yes Plan: She will be continue on oxygen via nasal cannula (2) Acute exacerbation of chronic obstructive pulmonary disease (COPD) Is this a current diagnosis for this admission?: Yes Plan: She will continue IV Solu-Medrol, bronchodilators, antibiotic (3) 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) Is this a current diagnosis for this admission?: Yes (4) Type 2 diabetes mellitus Qualifiers: Diabetes mellitus complication status: with neurologic complications Diabetes mellitus complication detail: with other neurological complication Diabetes mellitus jail insulin use: with manager intermediate use Qualified Code(s) : E11.49 - Type 2 diabetes mellitus with other diabetic neurological complication; Z79.4 - skilled nursing (current) use of insulin Is this a current diagnosis for this admission?: Yes
[2017-03-22] MEDS: ATORVASTATIN CALCIUM 80 MG TABLET PO SCH (22:39)
[2017-03-23 04:57] LABS: HEMOGLOBIN 10.4 g/dL (12.0-15.5); HGB HCT DIFFERENCE -1.8; MEAN CORPUSCULAR HGB CONC 31.5 g/dL (32.0-36.0); MEAN CORPUSCULAR VOLUME 73 fl (80-97); RED BLOOD COUNT 4.52 10^6/uL (3.72-5.28); RED CELL DISTRIBUTION WIDTH 19.4 % (11.5-14.0); WHITE BLOOD COUNT 19.4 10^3/uL (4.0-10.5)
[2017-03-23 05:15] LABS: ALANINE AMINOTRANSFERASE 45 U/L (9-52); ALBUMIN 3.9 g/dL (3.5-5.0); ALKALINE PHOSPHATASE 94 U/L (38-126); ANION GAP 13 (5-19); ASPARTATE AMINO TRANSFERASE 25 U/L (14-36); BILIRUBIN,DIRECT 0.3 mg/dL (0.0-0.4); BILIRUBIN,TOTAL 0.3 mg/dL (0.2-1.3); BLOOD UREA NITROGEN 41 mg/dL (7-20); CALCIUM 10.2 mg/dL (8.4-10.2); CARBON DIOXIDE 26 mmol/L (22-30); CHLORIDE 103 mmol/L (98-107); CREATININE RESULT 0.81 mg/dL (0.52-1.25); GLUCOSE 296 mg/dL (75-110); SODIUM 142.2 mmol/L (137-145); TOTAL PROTEIN 6.4 g/dL (6.3-8.2)
[2017-03-23 05:18] LABS: ANISOCYTOSIS 2+; BASOPHILS % (MANUAL) 0 % (0-2); EOSINOPHILS % (MANUAL) 0 % (0-6); HYPOCHROMASIA SLIGHT; LYMPHOCYTES % (MANUAL) 5 % (13-45); MICROCYTOSIS 1+; POLYCHROMASIA SLIGHT; TOTAL CELLS COUNTED 100; TOXIC GRANULATION 1+
[2017-03-23] MEDS: LANSOPRAZOLE 30 MG TAB.RAP.DR PO SCH (07:00)
[2017-03-23] MEDS: LEVOTHYROXINE SODIUM 0.075 MG TABLET PO SCH (07:01)
[2017-03-23] MEDS: METHYLPREDNISOLONE INJ 125 MG/2 ML SDV IV SCH ×2 (07:01→15:04)
[2017-03-23] MEDS: IPRATROPIUM/ALBUTEROL 0.5-2.5 MG/3 ML AMPUL NEB PRN ×2 (07:45→13:30)
[2017-03-23] MEDS: TIOTROPIUM BROMIDE DPI 5 CAP/KIT (18 MCG/CAP) IH SCH (10:13)
[2017-03-23] MEDS: CALCIUM CARBONATE 250 MG/VITAMIN D3 125 UNIT TABLET PO SCH (10:14)
[2017-03-23] MEDS: METFORMIN HCL 500 MG TABLET PO SCH (10:16)
[2017-03-23] MEDS: GLIMEPIRIDE 4 MG TABLET PO SCH (10:17)
[2017-03-23] MEDS: FUROSEMIDE 40 MG TABLET PO SCH (10:17)
[2017-03-23] MEDS: ASPIRIN 81 MG TABLET, CHEWABLE PO SCH (10:19)
[2017-03-23] MEDS: GABAPENTIN 300 MG CAPSULE PO SCH ×2 (10:20→15:03)
[2017-03-23] MEDS: LOSARTAN POTASSIUM 50 MG TABLET PO SCH (10:20)
[2017-03-23] MEDS: DOCUSATE SODIUM 100 MG CAPSULE PO SCH (10:20)
[2017-03-23] MEDS: SERTRALINE HCL 50 MG TABLET PO SCH (10:20)
[2017-03-23] MEDS: POLYETHYLENE GLYCOL 3350 POWDER 17 GM/1 PACKET PO SCH (10:21)
[2017-03-23] MEDS: ENOXAPARIN SODIUM INJ 30 MG/0.3 ML DISP.SYRIN SUBCUT SCH (10:22)
[2017-03-23] MEDS: INSULIN REG, HUMAN 100 UNIT/ML 3 ML VIAL (PYX) SUBCUT PRN ×2 (13:18→15:03)
[2017-03-23 13:51] LABS: HEMATOCRIT 34.9 % (36.0-47.0); HEMOGLOBIN 10.9 g/dL (12.0-15.5); HGB HCT DIFFERENCE -2.2; MEAN CORPUSCULAR HGB CONC 31.3 g/dL (32.0-36.0); MEAN CORPUSCULAR VOLUME 74 fl (80-97); RED BLOOD COUNT 4.75 10^6/uL (3.72-5.28); RED CELL DISTRIBUTION WIDTH 19.6 % (11.5-14.0); WHITE BLOOD COUNT 20.9 10^3/uL (4.0-10.5)
[2017-03-23 14:09] LABS: ALANINE AMINOTRANSFERASE 46 U/L (9-52); ALBUMIN 4.2 g/dL (3.5-5.0); ALKALINE PHOSPHATASE 103 U/L (38-126); ANION GAP 14 (5-19); ASPARTATE AMINO TRANSFERASE 29 U/L (14-36); BILIRUBIN,DIRECT 0.3 mg/dL (0.0-0.4); BILIRUBIN,TOTAL 0.4 mg/dL (0.2-1.3); BLOOD UREA NITROGEN 40 mg/dL (7-20); CARBON DIOXIDE 24 mmol/L (22-30); CHLORIDE 101 mmol/L (98-107); CREATININE RESULT 0.81 mg/dL (0.52-1.25); POTASSIUM 4.3 mmol/L (3.6-5.0); TOTAL PROTEIN 6.8 g/dL (6.3-8.2)
[2017-03-23 14:14] LABS: BASOPHILS % (MANUAL) 0 % (0-2); EOSINOPHILS % (MANUAL) 0 % (0-6); LYMPHOCYTES % (MANUAL) 7 % (13-45); TOTAL CELLS COUNTED 100
[2017-03-23 14:19] LABS: ANISOCYTOSIS 2+; GLUCOSE 408 mg/dL (75-110); HYPOCHROMASIA 1+; MICROCYTOSIS 1+; OVALOCYTES SLIGHT; POIKILOCYTOSIS SLIGHT; POLYCHROMASIA SLIGHT; TARGET CELLS SLIGHT; TEAR DROP CELLS SLIGHT
[2017-03-23 14:21] LABS: TOXIC GRANULATION SLIGHT
--- NOTE | 2017-03-23 14:31 | PDOC DISCHARGE SUMMARY ---
General - Admit/Disc Date/PCP Admission Date/Primary Care Provider: 03/21/17 00:06 ROWENA CLEANING MD Discharge Date: 03/23/17 - Discharge Diagnosis (1) Acute hypoxemic respiratory failure Is this a current diagnosis for this admission?: Yes (2) Acute exacerbation of chronic obstructive pulmonary disease (COPD) Is this a current diagnosis for this admission?: Yes (3) 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) Is this a current diagnosis for this admission?: Yes (4) Type 2 diabetes mellitus Is this a current diagnosis for this admission?: Yes - Additional Information Resuscitation Status: Full Code Discharge Diet: Diabetic Discharge Activity: Activity As Tolerated Home Medications: Aspirin [Aspirin 81 mg Chewable Tablet] 81 mg PO DAILY 03/21/17 Atorvastatin Calcium [Lipitor 80 mg Tablet] 80 mg PO QHS 03/21/17 Calcium Carbonate/Vitamin D3 [Calcium 500-Vit D3 400 Tablet] 1 tab PO DAILY Docusate Sodium [Colace 100 mg Capsule] 100 mg PO BID 03/21/17 Furosemide [Lasix 40 mg Tablet] 40 mg PO DAILY 03/21/17 Gabapentin [Neurontin 300 mg Capsule] 300 mg PO Q8 03/21/17 Glimepiride [Amaryl 4 mg Tablet] 4 mg PO WBRKFST 03/21/17 Ipratropium/Albuterol Sulfate [Iprat-Albut 0.5-3(2.5) mg/3 ml] 3 ml NEB Q6HP PRN 03/21/17 Levothyroxine Sodium [Synthroid 0.025 mg Tablet] 0.025 mg PO DAILY 03/21/17 Levothyroxine Sodium [Synthroid] 200 mcg PO DAILY 03/21/17 Aspirin [Aspirin 81 mg Chewable Tablet] 81 mg PO DAILY tab.chew 03/23/17 Atorvastatin Calcium [Lipitor 80 mg Tablet] 80 mg PO QHS tablet 03/23/17 Azithromycin [Zithromax] 250 mg PO DAILY #10 tablet 03/23/17 Calcium Carbonate/Vitamin D3 [Os-Mehrdad 250 mg with Vitamin D 125 Units] 2 tab PO DAILY tablet 03/23/17 Prednisone 20 mg PO DAILY #40 tablet 03/23/17 Sertraline HCl [Zoloft 50 mg Tablet] 50 mg PO DAILY tablet 03/23/17 History of Present Illness History of Present Illness: BAIRON FU is a 71 year old female, She has a history of chronic obstructive pulmonary disease stage IV she came to the emergency room last night for the evaluation of respiratory distress. She was evaluated in the emergency room she was found to have a low oxygen saturation. She was managed in the emergency room with positive pressure noninvasive ventilatory device, BiPAP, she was also treated with bronchodilators, IV Solu-Medrol, after stabilization in the emergency room hospital admission was advised.She has other comorbid conditions including pulmonary hypertension, type 2 diabetes mellitus, liver cirrhosis secondary to [place] Hospital Course Hospital Course: Patient was admitted for the management of acute hypoxemic respiratory failure due to COPD acute exacerbation. She was treated with IV Solu-Medrol, bronchodilators. She developed severe leukocytosis and hyperglycemia secondary to the IV Solu-Medrol. She has very severe COPD, very short of breath on minimal exertion, she will require continuous oxygen via nasal cannula for 24 hours a day. She could be discharged home today, she will continue prednisone, bronchodilators Physical Exam Vital Signs: Temp Pulse Resp BP Pulse Ox 98.3 F 90 16 165/85 H 98 03/23/17 11:27 03/23/17 13:30 03/23/17 13:30 03/23/17 11:27 03/23/17 13:30 Intake & Output 03/22/17 03/23/17 03/24/17 06:59 06:59 06:59 Intake Total 1165 1622 Output Total 1000 300 Balance 165 1322 Weight 79.379 kg 80.5 kg General appearance: PRESENT: no acute distress, well-developed, well-nourished Head exam: PRESENT: atraumatic, normocephalic Eye exam: PRESENT: conjunctiva pink, EOMI, PERRLA Ear exam: PRESENT: normal external ear exam Mouth exam: PRESENT: moist, tongue midline Neck exam: PRESENT: full ROM Respiratory exam: PRESENT: wheezes Cardiovascular exam: PRESENT: RRR, +S1, +S2 Pulses: PRESENT: normal dorsalis pedis pul, +2 pedal pulses bilateral Vascular exam: PRESENT: normal capillary refill GI/Abdominal exam: PRESENT: normal bowel sounds, soft Rectal exam: PRESENT: deferred Neurological exam: PRESENT: alert, awake, oriented to person, oriented to place , oriented to time, oriented to situation, CN II-XII grossly intact Psychiatric exam: PRESENT: appropriate affect, normal mood Skin exam: PRESENT: dry, intact, warm Results Laboratory Results: 03/23/17 13:24 03/23/17 13:24 03/23/17 03/23/17 03/23/17 04:19 04:19 13:24 WBC 19.4 H 20.9 H RBC 4.52 4.75 Hgb 10.4 L 10.9 L Hct 33.0 L 34.9 L MCV 73 L 74 L MCH 23.0 L 23.0 L MCHC 31.5 L 31.3 L RDW 19.4 H 19.6 H Plt Count 248 270 Seg Neutrophils % Not Reportable Not Reportable Lymphocytes % Not Reportable Not Reportable Monocytes % Not Reportable Not Reportable Eosinophils % Not Reportable Not Reportable Basophils % Not Reportable Not Reportable Absolute Neutrophils Not Reportable Not Reportable Absolute Lymphocytes Not Reportable Not Reportable Absolute Monocytes Not Reportable Not Reportable Absolute Eosinophils Not Reportable Not Reportable Absolute Basophils Not Reportable Not Reportable Sodium 142.2 Potassium 4.0 Chloride 103 Carbon Dioxide 26 Anion Gap 13 BUN 41 H Creatinine 0.81 Est GFR ( Amer) > 60 Est GFR (Non-Af Amer) > 60 Glucose 296 H Calcium 10.2 Total Bilirubin 0.3 AST 25 ALT 45 Alkaline Phosphatase 94 Total Protein 6.4 Albumin 3.9 03/23/17 13:24 WBC RBC Hgb Hct MCV MCH MCHC RDW Plt Count Seg Neutrophils % Lymphocytes % Monocytes % Eosinophils % Basophils % Absolute Neutrophils Absolute Lymphocytes Absolute Monocytes Absolute Eosinophils Absolute Basophils Sodium 139.0 Potassium 4.3 Chloride 101 Carbon Dioxide 24 Anion Gap 14 BUN 40 H Creatinine 0.81 Est GFR ( Amer) > 60 Est GFR (Non-Af Amer) > 60 Glucose 408 H* Calcium 10.0 Total Bilirubin 0.4 AST 29 ALT 46 Alkaline Phosphatase 103 Total Protein 6.8 Albumin 4.2 03/21/17 21:45 Clean Catch Midstream Urine Culture - Final NO GROWTH 2 DAYS 03/21/17 17:00 Sputum Gram Stain - Final 03/21/17 17:00 Sputum Sputum Culture - Final 03/21/17 03/21/17 03/22/17 20:27 20:27 03:23 CK-MB (CK-2) 2.54 2.76 Troponin I < 0.012 < 0.012 NT-Pro-B Natriuret Pep 218 03/22/17 10:14 CK-MB (CK-2) 2.60 Troponin I < 0.012 NT-Pro-B Natriuret Pep Impressions: Chest X-Ray 03/20/17 19:44 IMPRESSION: Obstructive lung disease.
[2017-03-23 15:21] VITALS: BP 104/49
== END 2017-03-23 16:52 | disposition home or self-care (01) | DRG 190 ==
LOC: ER 19:42 → EH 03-21 00:06 → 5 03-21 02:50
PROVIDERS: ADMIT Internal Medicine Geriatric Medicine; ATTEND Internal Medicine
PROC: 5A09457 Assistance with Respiratory Ventilation, 24-96 Consecutive Hours, Continuous Positive Airway Pressure (ICD-10-PCS; principal; 2017-03-20)
DX: J44.1 Chronic obstructive pulmonary disease with (acute) exacerbation (principal); J96.01 Acute respiratory failure with hypoxia; K75.81 Nonalcoholic steatohepatitis (NASH); K74.69 Other cirrhosis of liver; E11.9 Type 2 diabetes mellitus without complications; I27.2 Other secondary pulmonary hypertension; T38.0X5A Adverse effect of glucocorticoids and synthetic analogues, initial encounter; D72.829 Elevated white blood cell count, unspecified; E11.65 Type 2 diabetes mellitus with hyperglycemia; I48.91 Unspecified atrial fibrillation; I25.10 Atherosclerotic heart disease of native coronary artery without angina pectoris; E78.5 Hyperlipidemia, unspecified; E03.9 Hypothyroidism, unspecified; F31.9 Bipolar disorder, unspecified; M19.90 Unspecified osteoarthritis, unspecified site; D64.9 Anemia, unspecified; Z87.891 Personal history of nicotine dependence; Z82.49 Family history of ischemic heart disease and other diseases of the circulatory system; I25.2 Old myocardial infarction; Z83.3 Family history of diabetes mellitus; Z80.9 Family history of malignant neoplasm, unspecified; Z79.82 Long term (current) use of aspirin; Z79.4 Long term (current) use of insulin
CPT/HCPCS: 36415; 71010; 80048; 80053; 80076; 80307; 81001; 82140; 82150; 82550; 82553; 82962; 83036; 83690; 83735; 83880; 84100; 84439; 84443; 84484; 85025; 85610; 85730; 87040; 87070; 87086; 87205; 93005; 93010; 94640; 94660; 96365; 96375; 99291; J1650; J1815; J1956; J2405; J2930; J3490; J7620

== ENCOUNTER 2017-06-19 16:40 | Observation (INO) | payer BC ==
--- NOTE | 2017-06-19 16:56 | ER Document Report ---
ED General - General Stated Complaint: ABDOMINAL PAIN Time Seen by Provider: 06/19/17 16:48 Mode of Arrival: Ambulatory Information source: Patient, Parent Notes: 71-year-old female history of diverticulosis presents with complaints of abdominal pain since Tuesday. Patient denies any fevers or chills admits to nausea vomiting. Patient notes she just started eating peanuts a few days ago TRAVEL OUTSIDE OF THE [place] IN LAST 30 DAYS: No - HPI Onset: Other - 3 day duration Onset/Duration: Persistent Quality of pain: Sharp Severity: Moderate Pain Level: 3 Associated symptoms: Nausea, Other Exacerbated by: Denies Relieved by: Denies Similar symptoms previously: Yes Recently seen / treated by doctor: Yes - Related Data Allergies/Adverse Reactions: No Known Allergies Allergy (Verified 03/20/17 20:25) Past Medical History - Social History Smoking Status: Never Smoker Cigarette use (# per day): No Chew tobacco use (# tins/day): No Smoking Education Provided: No Family History: CAD, CVA, DM, Hyperlipidemia, Hypertension, Malignancy, Thyroid Disfunction - Past Medical History Cardiac Medical History: Reports: Hx Atrial Fibrillation, Hx Coronary Artery Disease, Hx Heart Attack - , Hx Hypercholesterolemia, Hx Hypertension Pulmonary Medical History: Reports: Hx Asthma - INHALER, Hx COPD, Hx Pneumonia Denies: Hx Bronchitis, Hx Tuberculosis Neurological Medical History: Denies: Hx Cerebrovascular Accident, Hx Seizures Endocrine Medical History: Reports: Hx Diabetes Mellitus Type 2, Hx Hypothyroidism Renal/ Medical History: Denies: Hx Peritoneal Dialysis GI Medical History: Reports: Hx Cirrhosis. Denies: Hx Hepatitis, Hx Hiatal Hernia, Hx Ulcer Musculoskeltal Medical History: Reports Hx Arthritis Psychiatric Medical History: Reports: Hx Depression Infectious Medical History: Denies: Hx Hepatitis Past Surgical History: Reports: Hx Abdominal Surgery - HERNIA X2, Hx Breast Surgery - lump removal x2, Hx Cardiac Catheterization, Hx Orthopedic Surgery - back, Hx Umbilical Hernia, Other - Kyphoplasty of the thoracic spine. Denies: Hx Hysterectomy, Hx Mastectomy, Hx Open Heart Surgery, Hx Pacemaker - Immunizations Immunizations up to date: Yes Hx Diphtheria, Pertussis, Tetanus Vaccination: No Hx Pneumococcal Vaccination: 04/03/12 Review of Systems - Review of Systems Notes: REVIEW OF SYSTEMS: CONSTITUTIONAL : Denies fever, chills, or sweats. Denies recent illness. EENT: Denies eye, ear, throat, or mouth pain or symptoms. Denies nasal or sinus congestion or discharge. Denies throat, tongue, or mouth swelling or difficulty swallowing. CARDIOVASCULAR: Denies chest pain. Denies palpitations or racing or irregular heart beat. Denies ankle edema. RESPIRATORY: Denies cough, cold, or chest congestion. Denies shortness of breath, difficulty breathing, or wheezing. GASTROINTESTINAL: Admits to abdominal pain GENITOURINARY: Denies difficulty urinating, painful urination, burning, frequency, blood in urine, or discharge. FEMALE GENITOURINARY: Denies vaginal bleeding, heavy or abnormal periods, irregular periods. Denies vaginal discharge or odor. MUSCULOSKELETAL: Denies back or neck pain or stiffness. Denies joint pain or swelling. SKIN: Denies rash, lesions or sores. HEMATOLOGIC : Denies easy bruising or bleeding. LYMPHATIC: Denies swollen, enlarged glands. NEUROLOGICAL: Denies confusion or altered mental status. Denies passing out or loss of consciousness. Denies dizziness or lightheadedness. Denies headache. Denies weakness or paralysis or loss of use of either side. Denies problems with gait or speech. Denies sensory loss, numbness, or tingling. Denies seizures. PSYCHIATRIC: Denies anxiety or stress. Denies depression, suicidal ideation, or homicidal ideation. ALL OTHER SYSTEMS REVIEWED AND NEGATIVE. PHYSICAL EXAMINATION: GENERAL: Well-appearing, well-nourished and in no acute distress. HEAD: Atraumatic, normocephalic. EYES: Pupils equal round and reactive to light, extraocular movements intact, conjunctiva are normal. ENT: Nares patent, oropharynx clear without exudates. Moist mucous membranes. NECK: Normal range of motion, supple without lymphadenopathy LUNGS: Breath sounds clear to auscultation bilaterally and equal. No wheezes rales or rhonchi. HEART: Regular rate and rhythm without murmurs ABDOMEN: Soft, tender upon palpation of the suprapubic region Female : deferred Musculoskeletal: Normal range of motion, no pitting or edema. No cyanosis. NEUROLOGICAL: Cranial nerves grossly intact. Normal speech, normal gait. Normal sensory, motor exams PSYCH: Normal mood, normal affect. SKIN: Warm, Dry, normal turgor, no rashes or lesions noted. Dictation was performed using Mobile Pulse recognition software Physical Exam - Vital signs Vitals: Temp Pulse Resp BP Pulse Ox 98.3 F 87 20 172/74 H 96 06/19/17 16:42 06/19/17 16:42 06/19/17 16:42 06/19/17 16:42 06/19/17 16:42 Course - Re-evaluation Re-evalutation: 06/19/17 18:50 Patient's presentation is concerning for diverticulitis it is with possible perforation she will be sent for CT emergently, lab work pending antibiotics have been started 06/19/17 19:16 Dr. Bailey has been paged to evaluate patient 06/19/17 20:24 Dr. Huntley's is unsure of the cause, believes he may be diverticulitis, antibiotics have been started I did speak with Dr. Huntley who will admit for the primary care physician - Vital Signs Vital signs: Temp Pulse Resp BP Pulse Ox 98.3 F 87 20 120/74 92 06/19/17 16:42 06/19/17 16:42 06/19/17 16:42 06/19/17 19:14 06/19/17 19:14 - Laboratory Result Diagrams: 06/19/17 17:00 06/19/17 17:00 Laboratory results interpreted by me: 06/19/17 06/19/17 06/19/17 17:00 17:00 18:49 WBC 25.0 H Hgb 11.6 L MCV 71 L MCH 22.3 L MCHC 31.3 L RDW 18.5 H Plt Count 549 H Seg Neuts % (Manual) 93 H Band Neutrophils % 1 L Lymphocytes % (Manual) 2 L Abs Neuts (Manual) 23.5 H Potassium 5.3 H BUN 30 H Est GFR (Non-Af Amer) 50 L Glucose 218 H Lactic Acid 2.4 H AST 66 H ALT 70 H - Diagnostic Test Radiology reviewed: Image reviewed, Reports reviewed Discharge - Discharge Clinical Impression: Diverticulitis Abdominal pain Qualifiers: Abdominal location: lower abdomen, unspecified Qualified Code(s): R10.30 - Lower abdominal pain, unspecified Leukocytosis Qualifiers: Leukocytosis type: unspecified Qualified Code(s): D72.829 - Elevated white blood cell count, unspecified Condition: Stable Disposition: ADMITTED INPATIENT Admitting Provider: [facility] Unit Admitted: Medical Floor Referrals: ROWENA CLEANING MD [Primary Care Provider] - Follow up as needed
[2017-06-19 17:16] LABS: HEMATOCRIT 37.1 % (36.0-47.0); HEMOGLOBIN 11.6 g/dL (12.0-15.5); HGB HCT DIFFERENCE -2.3; MEAN CORPUSCULAR HEMOGLOBIN 22.3 pg (27.0-33.4); MEAN CORPUSCULAR HGB CONC 31.3 g/dL (32.0-36.0); MEAN CORPUSCULAR VOLUME 71 fl (80-97); RED CELL DISTRIBUTION WIDTH 18.5 % (11.5-14.0)
[2017-06-19 17:32] LABS: ALANINE AMINOTRANSFERASE 70 U/L (9-52); ALBUMIN 4.4 g/dL (3.5-5.0); ALKALINE PHOSPHATASE 125 U/L (38-126); ANION GAP 17 (5-19); ASPARTATE AMINO TRANSFERASE 66 U/L (14-36); BAND NEUTROPHILS % (MANUAL) 1 % (3-5); BASOPHILS % (MANUAL) 0 % (0-2); BILIRUBIN,DIRECT 0.3 mg/dL (0.0-0.4); BILIRUBIN,TOTAL 0.7 mg/dL (0.2-1.3); BLOOD UREA NITROGEN 30 mg/dL (7-20); CALCIUM 9.6 mg/dL (8.4-10.2); CARBON DIOXIDE 27 mmol/L (22-30); CHLORIDE 99 mmol/L (98-107); CREATININE RESULT 1.08 mg/dL (0.52-1.25); EOSINOPHILS % (MANUAL) 0 % (0-6); GLUCOSE 218 mg/dL (75-110); LIPASE 121.5 U/L (23-300); LYMPHOCYTES % (MANUAL) 2 % (13-45); POTASSIUM 5.3 mmol/L (3.6-5.0); SODIUM 143.3 mmol/L (137-145); TOTAL CELLS COUNTED 100; TOTAL PROTEIN 7.2 g/dL (6.3-8.2)
[2017-06-19 17:34] LABS: ANISOCYTOSIS 2+; HYPOCHROMASIA 1+; MICROCYTOSIS 1+; POIKILOCYTOSIS SLIGHT; POLYCHROMASIA 1+
[2017-06-19 17:35] LABS: OVALOCYTES SLIGHT; TARGET CELLS SLIGHT
[2017-06-19] MEDS ORDERED: ONDANSETRON HCL INJ/PF 4 MG/2 ML SDV IV ONE (17:36)
[2017-06-19] MEDS ORDERED: NORMAL SALINE 1000 ML 1,000 ML IV PRN ×3 (17:42→20:08)
[2017-06-19] MEDS ORDERED: HYDROMORPHONE HCL INJ/PF 2 MG/ML AMPULE IV ONE (17:42)
[2017-06-19] MEDS ORDERED: PIPERACILLIN/TAZOBACTAM 3.375 GM VIAL IV ONE (17:43)
[2017-06-19] MEDS ORDERED: VANCOMYCIN HCL INJ 1000 MG VIAL IV ONE ×2 (17:43→21:00)
[2017-06-19 17:46] LABS: APPEARANCE,URINE CLEAR; BILIRUBIN,URINE NEGATIVE (NEGATIVE); GLUCOSE, URINE NEGATIVE (NEGATIVE); KETONES,URINE NEGATIVE (NEGATIVE); LEUKOCYTE ESTERASE,URINE NEGATIVE (NEGATIVE); NITRITE,URINE NEGATIVE (NEGATIVE); PROTEIN,URINE NEGATIVE (NEGATIVE); URINE SPECIFIC GRAVITY 1.009; UROBILINOGEN,URINE NEGATIVE mg/dL (<2.0)
[2017-06-19 19:01] LABS: VENOUS BLOOD BASE EXCESS 0.5 mmol/L; VENOUS BLOOD HCO3 27.3 mmol/L (20-32); VENOUS BLOOD PCO2 53.5 mmHg (35-63); VENOUS BLOOD PH 7.33 (7.30-7.42)
--- NOTE | 2017-06-19 19:04 | RADIOLOGY REPORT (SQ) ---
EXAM DESCRIPTION: CT ABD/PELVIS WITH IV ONLY COMPLETED DATE/TIME: 06/19/2017 6:35 pm REASON FOR STUDY: abd pain diverticulosis COMPARISON: None. TECHNIQUE: CT scan of the abdomen and pelvis performed using helical scanning technique with dynamic intravenous contrast injection. No oral contrast. Images reviewed with lung, soft tissue, and bone windows. Reconstructed coronal and sagittal MPR images reviewed. Delayed images for evaluation of the urinary system also acquired. All images stored on PACS. All CT scanners at this facility use dose modulation, iterative reconstruction, and/or weight based d osing when appropriate to reduce radiation dose to as low as reasonably achievable (ALARA). [facility]: Dose Right [facility]: CareDose [facility]: Dose Right [facility]: Teradose 4D [facility]: IgY [employer] CONTRAST TYPE AND DOSE: contrast/concentration: Isovue 370.00 mg/ml; Total Contrast Delivered: 92.0 ml; Total Saline Delivered: 67.0 ml RENAL FUNCTION: Creatinine 1.1 RADIATION DOSE: CT Rad equipment meets quality standard of care and radiation dose reduction techniq ues were employed. CTDIvol: 12.6 - 16.6 mGy. DLP: 1511 mGy-cm.. LIMITATIONS: None. FINDINGS: LOWER CHEST: No significant findings. No nodules or infiltrates. LIVER: Mildly nodular appearance diffusely but no focal lesions. No duct dilatation. SPLEEN: Normal size. No focal lesions. PANCREAS: No masses. No significant calcifications. No adjacent inflammation or peripancreatic fluid collections. Pancreatic duct not dilated. GALLBLADDER: Mild gallbladder distention but no wall thickening or calcified stones evident. ADRENAL GLANDS: No significant masses or asymmetry. RIGHT KIDNEY AND URETER: No solid masses. No significant calcification. No hydronephrosis or hydroure ter. LEFT KIDNEY AND URETER: No solid masses. No significant calcification. No hydronephrosis or hydrouret er. AORTA AND VESSELS: Atherosclerotic aorta without evidence of aneurysm or dissection, significant paco rial occlusion or stenosis. No venous clot. Portal vein patent. RETROPERITONEUM: No retroperitoneal adenopathy, hemorrhage or masses. BOWEL AND PERITONEAL CAVITY: Moderate stool throughout the distal colon. No evidence of bowel obstru ction or ascites or abnormal gas or overt adenopathy. APPENDIX: Normal. PELVIS: Bladder remains relatively decompressed common normal as evaluated. Minimal fibroid uterus s uggested. No suspicious pelvic mass. No pelvic free fluid. ABDOMINAL WALL: No masses. No hernias. BONES: No significant or acute findings. OTHER: No other significant finding. IMPRESSION: 1. No acute abdominopelvic abnormality. 2. Nodular liver, potential cirrhosis. TECHNICAL DOCUMENTATION: JOB ID: [id number] Quality ID # [id number]: Final reports with documentation of one or more dose reduction techniques (e.g., Au tomated exposure control, adjustment of the mA and/or kV according to patient size, use of iterative reconstruction technique) 2010 [employer]- All Rights Reserved
[2017-06-19] MEDS ORDERED: METRONIDAZOLE 500 MG/NS RTU 100 ML IV ONE (19:55)
[2017-06-19] MEDS ORDERED: CIPROFLOXACIN 400 MG/D5W RTU 400 MG/200 ML RTUPB IV SCH ×2 (20:00→22:00)
[2017-06-19] MEDS ORDERED: ACETAMINOPHEN 325 MG TABLET PO PRN (20:08)
[2017-06-19] MEDS ORDERED: ONDANSETRON HCL INJ/PF 4 MG/2 ML SDV IV PRN (20:08)
[2017-06-19] MEDS ORDERED: OXYCODONE-ACETAMINOPHEN 5-325 MG TABLET PO PRN (20:08)
--- NOTE | 2017-06-19 20:27 | PDOC CONSULTATION ---
Consultation Consult Date: 06/19/17 Attending physician:: MOOK PEOPLES Consult reason:: Abdominal pain History of Present Illness Admission Date/PCP: 06/19/17 20:16 ROWENA CLEANING MD History of Present Illness: BAIRON FU is a 71 year old female Patient presents to the emergency department via ground rescue complaining of onset of abdominal pain earlier today. This was mostly in the pelvic region associated with flushing and pallor according to her . The patient was brought hemodynamically stable to [facility] where she was found to have diffuse abdominal tenderness. She underwent CT scan of the abdomen and pelvis without oral contrast which was essentially interpreted as unremarkable. Surgery was consulted. Patient was noted to have a leukocytosis of 29,000. The patient she has had abdominal pain unexplained for years. Colonoscopy was last year Dr. Almanza with findings of diverticulosis only. She has never had diverticulitis by her report. She has been treated on a number of occasions with course of antibiotics and steroids, mostly recently Dr. Cleaning. Etiology of abdominal pain remains unclear. Still has her gallbladder. Patient received fluids and IV antibiotics emergency department and felt some better. She is thirsty. Past Medical History Cardiac Medical History: Reports: Atrial Fibrillation, Congestive Heart Failure , Coronary Artery Disease, Myocardial Infarction - , Hyperlipidema, Hypertension Pulmonary Medical History: Reports: Asthma - INHALER, Chronic Obstructive Pulmonary Disease (COPD), Pneumonia Denies: Bronchitis, Tuberculosis Neurological Medical History: Denies: Seizures Endocrine Medical History: Reports: Diabetes Mellitus Type 2, Hypothyroidism GI Medical History: Reports: Cirrhosis Denies: Hepatitis, Hiatal Hernia Musculoskeltal Medical History: Reports: Arthritis Psychiatric Medical History: Reports: Depression Hematology: Reports: Anemia Denies: Sickle Cell Disease Past Surgical History Past Surgical History: Reports: Cardiac Catheterization, Orthopedic Surgery - back, Other - Kyphoplasty of the thoracic spine Infraumbilical hernia repair, janny Denies: Hysterectomy, Mastectomy, Pacemaker Social History Smoking Status: Never Smoker Frequency of Alcohol Use: None Hx Recreational Drug Use: No Drugs: None Hx Prescription Drug Abuse: No Family History Family History: CAD, CVA, DM, Hyperlipidemia, Hypertension, Malignancy, Thyroid Disfunction Parental Family History Reviewed: Yes Children Family History Reviewed: Yes Sibling(s) Family History Reviewed.: Yes Medication/Allergy Home Medications: Aspirin [Aspirin 81 mg Chewable Tablet] 81 mg PO DAILY 03/21/17 Atorvastatin Calcium [Lipitor 80 mg Tablet] 80 mg PO QHS 03/21/17 Calcium Carbonate/Vitamin D3 [Calcium 500-Vit D3 400 Tablet] 1 tab PO DAILY Docusate Sodium [Colace 100 mg Capsule] 100 mg PO BID 03/21/17 Furosemide [Lasix 40 mg Tablet] 40 mg PO DAILY 03/21/17 Gabapentin [Neurontin 300 mg Capsule] 300 mg PO Q8 03/21/17 Glimepiride [Amaryl 4 mg Tablet] 4 mg PO WBRKFST 03/21/17 Ipratropium/Albuterol Sulfate [Iprat-Albut 0.5-3(2.5) mg/3 ml] 3 ml NEB Q6HP PRN 03/21/17 Levothyroxine Sodium [Synthroid 0.025 mg Tablet] 0.025 mg PO DAILY 03/21/17 Levothyroxine Sodium [Synthroid] 200 mcg PO DAILY 03/21/17 Aspirin [Aspirin 81 mg Chewable Tablet] 81 mg PO DAILY tab.chew 03/23/17 Atorvastatin Calcium [Lipitor 80 mg Tablet] 80 mg PO QHS tablet 03/23/17 Azithromycin [Zithromax] 250 mg PO DAILY #10 tablet 03/23/17 Calcium Carbonate/Vitamin D3 [Os-Mehrdad 250 mg with Vitamin D 125 Units] 2 tab PO DAILY tablet 03/23/17 Prednisone 20 mg PO DAILY #40 tablet 03/23/17 Sertraline HCl [Zoloft 50 mg Tablet] 50 mg PO DAILY tablet 03/23/17 Allergies/Adverse Reactions: No Known Allergies Allergy (Verified 03/20/17 20:25) Review of Systems Constitutional: PRESENT: other - Patient denies constitutional symptoms Eyes: ABSENT: visual disturbances Ears: ABSENT: hearing changes Respiratory: ABSENT: cough, hemoptysis Gastrointestinal: PRESENT: as per HPI Integumentary: PRESENT: other - Patient denies history of trauma, or diagnosis of a specific gastrointestinal problem by her report Neurological: PRESENT: as per HPI Physical Exam Vital Signs: Temp Pulse Resp BP Pulse Ox 98.3 F 87 20 120/74 92 06/19/17 16:42 06/19/17 16:42 06/19/17 16:42 06/19/17 19:14 06/19/17 19:14 General appearance: PRESENT: no acute distress Head exam: PRESENT: normocephalic Eye exam: PRESENT: EOMI Mouth exam: PRESENT: dry mucosa Neck exam: PRESENT: full ROM Respiratory exam: PRESENT: wheezes GI/Abdominal exam: PRESENT: diminished bowel sounds, other - Abdomen is soft there is a well-healed infraumbilical scar consistent with previous surgery. No hernia. There are no peritoneal signs no rigidity no organomegaly. Her graft suprapubic area is unremarkable. Rectal exam: PRESENT: deferred Neurological exam: PRESENT: alert, altered, awake Psychiatric exam: PRESENT: appropriate affect Results Impressions: Abdomen/Pelvis CT 06/19/17 17:33 IMPRESSION: 1. No acute abdominopelvic abnormality. 2. Nodular liver, potential cirrhosis. Assessment & Plan - Diagnosis (1) Abdominal pain Qualifiers: Abdominal location: generalized Qualified Code(s): R10.84 - Generalized abdominal pain Is this a current diagnosis for this admission?: Yes Plan: Patient has generalized abdominal pain, acute superimposed on chronic of uncertain etiology. Her abdominal exam now is in consistent with peritonitis. CT scan is limited due to absence of oral contrast, but otherwise unremarkable except for distended gallbladder left renal cyst, and atherosclerotic aortoiliac disease. There is no free fluid, phlegmon, free air. There are dense sigmoid diverticulosis. Impression: 1. She does not have an acute abdomen. However she does have a leukocytosis, given her advancing age, multiple comorbidities, I believe she should be admitted for observation IV fluids intravenous antibiotics and reassessment of the next 12-24 hours. 2. Consideration for cholecystitis raised; gallbladder ultrasonography may be useful. 3. We will be reassessed 12 hours or sooner by Dr. Cortés surgicalist is for Tuesday. This was explained to the patient and her family. - Time Time Spent: 30 to 50 Minutes Smoking Cessation Education: 3 to 10 minutes Anticipated discharge: Home - Inpatient Certification Based on my medical assessment, after consideration of the patient's comorbidities, presenting symptoms, or acuity I expect that the services needed warrant INPATIENT care.: Yes I certify that my determination is in accordance with my understanding of Medicare's requirements for reasonable and necessary INPATIENT services [42 CFR 412.3e].: Yes Medical Necessity: Need For IV Fluids, Need for Pain Control, Need for IV Antibiotics
[2017-06-19] MEDS: IPRATROPIUM/ALBUTEROL 0.5-2.5 MG/3 ML AMPUL NEB SCH (23:17)
[2017-06-19] MEDS: PANTOPRAZOLE SODIUM 40 MG VIAL IV SCH (23:38)
[2017-06-20] MEDS: METRONIDAZOLE 500 MG/NS RTU 100 ML IV SCH ×4 (00:58→18:24)
[2017-06-20] MEDS: IPRATROPIUM/ALBUTEROL 0.5-2.5 MG/3 ML AMPUL NEB SCH ×5 (04:24→19:27)
[2017-06-20 06:00] LABS: ABSOLUTE EOSINOPHILS # (AUTO) 0.3 10^3/uL (0.0-0.6); ABSOLUTE LYMPHOCYTES (AUTO) 2.9 10^3/uL (0.5-4.7); ABSOLUTE MONOCYTES (AUTO) 1.1 10^3/uL (0.1-1.4); ABSOLUTE NEUT (AUTO) 15.1 10^3/uL (1.7-8.2); BASOPHILS % (AUTO) 0.1 % (0-2); EOSINOPHILS % (AUTO) 1.5 % (0-6); HEMATOCRIT 28.6 % (36.0-47.0); HGB HCT DIFFERENCE -2.2; LYMPHOCYTES % (AUTO) 15.1 % (13-45); MEAN CORPUSCULAR HEMOGLOBIN 21.8 pg (27.0-33.4); MEAN CORPUSCULAR HGB CONC 30.7 g/dL (32.0-36.0); MEAN CORPUSCULAR VOLUME 71 fl (80-97); MONOCYTES % (AUTO) 5.7 % (3-13); RED BLOOD COUNT 4.03 10^6/uL (3.72-5.28); SEGMENTED NEUTROPHILS % (AUTO) 77.6 % (42-78); WHITE BLOOD COUNT 19.5 10^3/uL (4.0-10.5)
[2017-06-20 06:04] LABS: HEMOGLOBIN 8.8 g/dL (12.0-15.5)
[2017-06-20 06:21] LABS: ALANINE AMINOTRANSFERASE 52 U/L (9-52); ALBUMIN 3.1 g/dL (3.5-5.0); ALKALINE PHOSPHATASE 78 U/L (38-126); ANION GAP 10 (5-19); ASPARTATE AMINO TRANSFERASE 35 U/L (14-36); BILIRUBIN,DIRECT 0.1 mg/dL (0.0-0.4); BILIRUBIN,TOTAL 0.1 mg/dL (0.2-1.3); BLOOD UREA NITROGEN 32 mg/dL (7-20); CALCIUM 8.3 mg/dL (8.4-10.2); CARBON DIOXIDE 25 mmol/L (22-30); CHLORIDE 103 mmol/L (98-107); CREATININE RESULT 0.99 mg/dL (0.52-1.25); GLUCOSE 191 mg/dL (75-110); SODIUM 137.9 mmol/L (137-145); TOTAL PROTEIN 5.4 g/dL (6.3-8.2)
[2017-06-20 06:33] LABS: POTASSIUM 3.8 mmol/L (3.6-5.0)
[2017-06-20] MEDS: PANTOPRAZOLE SODIUM 40 MG VIAL IV SCH ×2 (09:56→21:41)
[2017-06-20] MEDS ORDERED: CIPROFLOXACIN 400 MG/D5W RTU 400 MG/200 ML RTUPB IV SCH (10:00)
[2017-06-20] MEDS ORDERED: ENOXAPARIN SODIUM INJ 40 MG/0.4 ML DISP.SYRIN SUBCUT SCH (10:00)
[2017-06-20] MEDS ORDERED: CIPROFLOXACIN 400 MG/D5W RTU 400 MG/200 ML RTUPB IV ONE (14:00)
[2017-06-20] MEDS ORDERED: INFLUENZA ADLT QUAD (36MOS+) 2017-18 VAC 0.5 ML SYR IM PRN (15:30)
--- NOTE | 2017-06-20 15:47 | RADIOLOGY REPORT (SQ) ---
EXAM DESCRIPTION: U/S ABDOMEN LIMITED W/O DOP COMPLETED DATE/TIME: 06/20/2017 2:26 pm REASON FOR STUDY: gallbladder disease COMPARISON: None. TECHNIQUE: Dynamic and static grayscale images acquired of the right upper quadrant and recorded on PACS. Additional selected color Doppler and spectral images recorded. LIMITATIONS: Study limited due to acoustical interference from fat or from air in the bowel. FINDINGS: PANCREAS: Visualized pancreas and duct normal. Parts of pancreas poorly seen secondary to acoustical interference from fat or from air in the bowel. LIVER: No masses. Echotexture normal. LIVER VASCULATURE: Normal directional flow of the main portal vein and hepatic veins. GALLBLADDER: No stones. Normal wall thickness. No pericholecystic fluid. ULTRASOUND-DETECTED CONNOR'S SIGN: Negative. INTRAHEPATIC DUCTS AND COMMON DUCT: CBD and intrahepatic ducts normal caliber. No filling defects. INFERIOR VENA CAVA: Normal flow. AORTA: No aneurysm. RIGHT KIDNEY: Normal size. Normal echogenicity. No solid or suspicious masses. No hydronephrosis. No calcifications. PERITONEAL CAVITY AND RIGHT PLEURAL SPACE: No ascites or effusions. OTHER: No other significant finding. IMPRESSION: NORMAL RIGHT UPPER QUADRANT ULTRASOUND. PANCREAS PARTIALLY OBSCURED BY GAS. TECHNICAL DOCUMENTATION: JOB ID: [id number] [employer]- All Rights Reserved
--- NOTE | 2017-06-20 20:07 | PDOC PROGRESS REPORT ---
Subjective Progress Note for:: 06/20/17 Subjective:: Less RUQ abdominal pains Reason For Visit: ABD PAIN Physical Exam Vital Signs: Temp Pulse Resp BP Pulse Ox 98.5 F 84 17 149/70 H 100 06/20/17 16:38 06/20/17 19:28 06/20/17 19:28 06/20/17 16:38 06/20/17 19:28 Intake & Output 06/19/17 06/20/17 06/21/17 06:59 06:59 06:59 Intake Total 1546 400 Output Total 400 Balance 1146 400 Weight 79.7 kg Exam: Abdomen soft with mild RUQ tenderness Results Laboratory Results: 06/20/17 05:35 06/20/17 05:35 06/19/17 06/20/17 06/20/17 22:43 05:35 05:35 WBC 19.5 H RBC 4.03 Hgb 8.8 L D Hct 28.6 L MCV 71 L MCH 21.8 L MCHC 30.7 L RDW 18.0 H Plt Count 334 Seg Neutrophils % 77.6 Lymphocytes % 15.1 Monocytes % 5.7 Eosinophils % 1.5 Basophils % 0.1 Absolute Neutrophils 15.1 H Absolute Lymphocytes 2.9 Absolute Monocytes 1.1 Absolute Eosinophils 0.3 Absolute Basophils 0.0 Sodium 137.9 Potassium 3.8 D Chloride 103 Carbon Dioxide 25 Anion Gap 10 BUN 32 H Creatinine 0.99 Est GFR ( Amer) > 60 Est GFR (Non-Af Amer) 56 L Glucose 191 H Lactic Acid 1.9 Calcium 8.3 L Total Bilirubin 0.1 L AST 35 ALT 52 Alkaline Phosphatase 78 Total Protein 5.4 L Albumin 3.1 L Impressions: Abdomen/Pelvis CT 06/19/17 17:33 IMPRESSION: 1. No acute abdominopelvic abnormality. 2. Nodular liver, potential cirrhosis. Abdomen Ultrasound 06/20/17 11:04 IMPRESSION: NORMAL RIGHT UPPER QUADRANT ULTRASOUND. PANCREAS PARTIALLY OBSCURED BY GAS. Assessment & Plan - Time Time Spent with patient: 15-24 minutes - Plan Summary Plan Summary: US RUQ today was normal. Pt re-evaluated and no more RUQ pains. OK to increase diet as tolerated. Still not clear as to source of sepsis and abdominal pains
[2017-06-20] MEDS ORDERED: DOCUSATE SODIUM 100 MG CAPSULE PO PRN (20:34)
[2017-06-20] MEDS ORDERED: CHLORPHENIRAMINE MALEATE 4 MG TABLET PO PRN (20:34)
[2017-06-20] MEDS ORDERED: TIZANIDINE HCL 4 MG TABLET PO PRN (20:34)
[2017-06-20] MEDS ORDERED: (PENDING PHARMACY ID) (Butalb/Acetaminophen/Caffeine [Butalb-Acetamin-Caff 50-300-40] 1 CA PO PRN (20:34)
--- NOTE | 2017-06-20 20:34 | PDOC H&P ---
History of Present Illness Admission Date/PCP: 06/19/17 20:16 ROWENA CLEANING MD History of Present Illness: Patient is a 71-year-old female with multiple comorbid conditions including chronic obstructive pulmonary disease, paroxysmal atrial fibrillation, liver cirrhosis due to [place], type 2 diabetes mellitus, osteoporotic fracture of the thoracic spine, nonischemic cardiomyopathy, history of tobacco abuse. She came to the emergency room for evaluation of abdominal pain, in the emergency room she was seen and evaluated, part of the evaluation involved a CAT scan of the abdomen and pelvis, it was negative for any acute pathology, she was also found to have severe leukocytosis with white cell count over 20,000, because of this constellation of signs and symptoms ,surgical abdomen was suspected, consultation was requested from surgery, she was evaluated and it was felt that it is not a surgical abdomen.She was also found to have a low blood pressure, she was treated empirically with IV antibiotic because it was felt that she may have acute diverticulitis. Patient is well known to me, I saw her in the office last week when she presented with acute COPD exacerbation. She was given prescription for tapered dose prednisone, antibiotic the leukocytosis is probably related to the prednisone that she is taking. Past Medical History Cardiac Medical History: Reports: Atrial Fibrillation, Congestive Heart Failure , Coronary Artery Disease, Myocardial Infarction - , Hyperlipidema, Hypertension Pulmonary Medical History: Reports: Asthma - INHALER, Chronic Obstructive Pulmonary Disease (COPD), Pneumonia Neurological Medical History: Denies: Seizures Endocrine Medical History: Reports: Diabetes Mellitus Type 2, Hypothyroidism GI Medical History: Reports: Cirrhosis Denies: Hepatitis, Hiatal Hernia Musculoskeltal Medical History: Reports: Arthritis Psychiatric Medical History: Reports: Depression Hematology: Reports: Anemia Denies: Sickle Cell Disease Past Surgical History Past Surgical History: Reports: Cardiac Catheterization, Orthopedic Surgery - back, Other - Kyphoplasty of the thoracic spine Infraumbilical hernia repair, janny Social History Smoking Status: Former Smoker Number of Years Smokin Last Time Smoked: 06/29/2016 Frequency of Alcohol Use: None Hx Recreational Drug Use: No Drugs: None Hx Prescription Drug Abuse: No - Advance Directive Resuscitation Status: Full Code Family History Family History: CAD, CVA, DM, Hyperlipidemia, Hypertension, Malignancy, Thyroid Disfunction Parental Family History Reviewed: Yes Children Family History Reviewed: Yes Sibling(s) Family History Reviewed.: Yes Medication/Allergy Home Medications: Apixaban [Eliquis 5 mg Tablet] 5 mg PO Q12 06/20/17 Aspirin [Aspirin 81 mg Chewable Tablet] 81 mg PO DAILY 06/20/17 Atorvastatin Calcium [Lipitor 80 mg Tablet] 80 mg PO QHS 06/20/17 Butalb/Acetaminophen/Caffeine [Mprvep-Obqdnxkr-Ddal 50-300-40] 1 cap PO Q4HP PRN 06/20/17 Calcium Carbonate/Vitamin D3 [Calcium 500-Vit D3 600 Caplet] 1 tab PO WBRKFST Chlorpheniramine Maleate [Chlor-Trimeton 4 mg Tablet] 4 mg PO Q6HP PRN 06/20/17 Diltiazem HCl [Diltiazem 12Hr ER] 120 mg PO DAILY 06/20/17 Docusate Sodium [Colace 100 mg Capsule] 100 mg PO BIDP PRN 06/20/17 Duloxetine HCl [Cymbalta] 60 mg PO DAILY 06/20/17 Furosemide [Lasix 40 mg Tablet] 40 mg PO DAILY 06/20/17 Gabapentin [Neurontin 300 mg Capsule] 300 mg PO Q8 06/20/17 Glimepiride [Amaryl 4 mg Tablet] 4 mg PO DAILY 06/20/17 Ipratropium/Albuterol Sulfate [Iprat-Albut 0.5-3(2.5) mg/3 ml] 3 ml NEB Q6 06/20 Levothyroxine Sodium [Synthroid 0.025 mg Tablet] 0.025 mg PO Q6AM 06/20/17 Levothyroxine Sodium [Synthroid] 200 mcg PO Q6AM 06/20/17 Losartan Potassium [Cozaar 100 mg Tablet] 100 mg PO DAILY 06/20/17 Metformin HCl [Glucophage] 1,000 mg PO BID 06/20/17 Metoprolol Succinate [Toprol Xl 50 mg Tab.sr] 50 mg PO DAILY 06/20/17 Naloxone HCl [Evzio] 0.4 ml IM PRN PRN 06/20/17 Potassium Chloride [Klor-Con M20] 20 meq PO DAILY 06/20/17 Rifaximin [Xifaxan 550 mg Tablet] 550 mg PO DAILY 06/20/17 Roflumilast [Daliresp 500 mcg Tablet] 500 mcg PO DAILY 06/20/17 Tiotropium [place] [Spiriva Handihaler 5 Cap/Kit (18 Mcg/Cap)] 1 puff IN DAILY 06/20/17 Tizanidine HCl [Zanaflex 4 mg Tablet] 4 mg PO Q8HP PRN 06/20/17 Allergies/Adverse Reactions: No Known Allergies Allergy (Verified 03/20/17 20:25) Review of Systems Constitutional: PRESENT: anorexia, chills Eyes: ABSENT: visual disturbances Ears: ABSENT: hearing changes Cardiovascular: ABSENT: chest pain, dyspnea on exertion, edema, orthropnea, palpitations Respiratory: ABSENT: cough, hemoptysis Gastrointestinal: PRESENT: abdominal pain Genitourinary: ABSENT: dysuria, hematuria Musculoskeletal: ABSENT: joint swelling Integumentary: ABSENT: rash, wounds Neurological: ABSENT: abnormal gait, abnormal speech, confusion, dizziness, focal weakness, syncope Psychiatric: ABSENT: anxiety, depression, homidical ideation, suicidal ideation Endocrine: ABSENT: cold intolerance, heat intolerance, menstrual abnormalities, polydipsia, polyuria Hematologic/Lymphatic: ABSENT: easy bleeding, easy bruising, lymphadenopathy Physical Exam Vital Signs: Temp Pulse Resp BP Pulse Ox 98.5 F 84 17 149/70 H 100 06/20/17 16:38 06/20/17 19:28 06/20/17 19:28 06/20/17 16:38 06/20/17 19:28 Intake & Output 06/19/17 06/20/17 06/21/17 06:59 06:59 06:59 Intake Total 1546 400 Output Total 400 Balance 1146 400 Weight 79.7 kg General appearance: PRESENT: no acute distress, well-developed, well-nourished Head exam: PRESENT: atraumatic, normocephalic Eye exam: PRESENT: conjunctiva pink, EOMI, PERRLA. ABSENT: scleral icterus Ear exam: PRESENT: normal external ear exam Mouth exam: PRESENT: moist, tongue midline Neck exam: PRESENT: full ROM Respiratory exam: PRESENT: clear to auscultation benjamin Cardiovascular exam: PRESENT: RRR, +S1, +S2 Pulses: PRESENT: normal dorsalis pedis pul, +2 pedal pulses bilateral Vascular exam: PRESENT: normal capillary refill GI/Abdominal exam: PRESENT: normal bowel sounds, soft Rectal exam: PRESENT: deferred Neurological exam: PRESENT: alert, awake, oriented to person, oriented to place , oriented to time, oriented to situation, CN II-XII grossly intact Psychiatric exam: PRESENT: appropriate affect, normal mood Skin exam: PRESENT: dry, intact, warm Results Laboratory Results: 06/20/17 05:35 06/20/17 05:35 06/19/17 06/20/17 06/20/17 22:43 05:35 05:35 WBC 19.5 H RBC 4.03 Hgb 8.8 L D Hct 28.6 L MCV 71 L MCH 21.8 L MCHC 30.7 L RDW 18.0 H Plt Count 334 Seg Neutrophils % 77.6 Lymphocytes % 15.1 Monocytes % 5.7 Eosinophils % 1.5 Basophils % 0.1 Absolute Neutrophils 15.1 H Absolute Lymphocytes 2.9 Absolute Monocytes 1.1 Absolute Eosinophils 0.3 Absolute Basophils 0.0 Sodium 137.9 Potassium 3.8 D Chloride 103 Carbon Dioxide 25 Anion Gap 10 BUN 32 H Creatinine 0.99 Est GFR ( Amer) > 60 Est GFR (Non-Af Amer) 56 L Glucose 191 H Lactic Acid 1.9 Calcium 8.3 L Total Bilirubin 0.1 L AST 35 ALT 52 Alkaline Phosphatase 78 Total Protein 5.4 L Albumin 3.1 L Impressions: Abdomen/Pelvis CT 06/19/17 17:33 IMPRESSION: 1. No acute abdominopelvic abnormality. 2. Nodular liver, potential cirrhosis. Abdomen Ultrasound 06/20/17 11:04 IMPRESSION: NORMAL RIGHT UPPER QUADRANT ULTRASOUND. PANCREAS PARTIALLY OBSCURED BY GAS. 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
[2017-06-20] MEDS ORDERED: IPRATROPIUM/ALBUTEROL 0.5-2.5 MG/3 ML AMPUL NEB SCH (20:45)
[2017-06-20] MEDS ORDERED: (PENDING PHARMACY ID) (Diltiazem Hcl [Diltiazem 12hr Er] 120 MG) PO SCH (20:45)
[2017-06-20] MEDS ORDERED: (PENDING PHARMACY ID) (Roflumilast [Daliresp 500 Mcg Tablet] 500 MCG) PO SCH (20:45)
[2017-06-20] MEDS ORDERED: BUTALB/ACETAMINOPHEN/CAFFEINE 1 TAB EACH PO PRN (20:58)
[2017-06-20] MEDS: CIPROFLOXACIN 400 MG/D5W RTU 400 MG/200 ML RTUPB IV SCH (21:44)
[2017-06-20] MEDS: GABAPENTIN 300 MG CAPSULE PO SCH (22:37)
[2017-06-20] MEDS ORDERED: APIXABAN 5 MG TABLET PO ONE (23:00)
[2017-06-21] MEDS: IPRATROPIUM/ALBUTEROL 0.5-2.5 MG/3 ML AMPUL NEB SCH ×5 (00:11→16:07)
[2017-06-21] MEDS: METRONIDAZOLE 500 MG/NS RTU 100 ML IV SCH ×4 (00:52→17:51)
[2017-06-21] MEDS: GABAPENTIN 300 MG CAPSULE PO SCH ×2 (05:18→13:35)
[2017-06-21 05:37] LABS: ABSOLUTE BASOPHILS # (AUTO) 0.1 10^3/uL (0.0-0.2); ABSOLUTE EOSINOPHILS # (AUTO) 0.2 10^3/uL (0.0-0.6); ABSOLUTE LYMPHOCYTES (AUTO) 2.8 10^3/uL (0.5-4.7); ABSOLUTE MONOCYTES (AUTO) 0.8 10^3/uL (0.1-1.4); ABSOLUTE NEUT (AUTO) 10.6 10^3/uL (1.7-8.2); BASOPHILS % (AUTO) 0.8 % (0-2); EOSINOPHILS % (AUTO) 1.5 % (0-6); HEMATOCRIT 28.5 % (36.0-47.0); HGB HCT DIFFERENCE -1.5; LYMPHOCYTES % (AUTO) 19.2 % (13-45); MEAN CORPUSCULAR HEMOGLOBIN 22.2 pg (27.0-33.4); MEAN CORPUSCULAR HGB CONC 31.5 g/dL (32.0-36.0); MEAN CORPUSCULAR VOLUME 70 fl (80-97); MONOCYTES % (AUTO) 5.7 % (3-13); RED BLOOD COUNT 4.05 10^6/uL (3.72-5.28); RED CELL DISTRIBUTION WIDTH 17.9 % (11.5-14.0); SEGMENTED NEUTROPHILS % (AUTO) 72.8 % (42-78); WHITE BLOOD COUNT 14.5 10^3/uL (4.0-10.5)
[2017-06-21 05:45] LABS: ANION GAP 12 (5-19); BLOOD UREA NITROGEN 19 mg/dL (7-20); CALCIUM 8.8 mg/dL (8.4-10.2); CARBON DIOXIDE 23 mmol/L (22-30); CHLORIDE 103 mmol/L (98-107); CREATININE RESULT 0.87 mg/dL (0.52-1.25); GLUCOSE 132 mg/dL (75-110); POTASSIUM 3.8 mmol/L (3.6-5.0); SODIUM 137.5 mmol/L (137-145)
[2017-06-21] MEDS ORDERED: LEVOTHYROXINE SODIUM 0.1 MG TABLET PO SCH (06:00)
[2017-06-21] MEDS ORDERED: LEVOTHYROXINE SODIUM 0.025 MG TABLET PO SCH (06:00)
[2017-06-21] MEDS ORDERED: [UNRECOGNIZED DRUG - OTHER] PO SCH (08:00)
[2017-06-21] MEDS ORDERED: CALCIUM CARBONATE PO SCH (08:00)
[2017-06-21] MEDS ORDERED: CALCIUM CARBONATE 250 MG/VITAMIN D3 125 UNIT TABLET PO SCH (08:00)
[2017-06-21] MEDS ORDERED: VITAMIN D3 PO SCH (08:00)
--- NOTE | 2017-06-21 09:36 | Physician Advisory Note ---
Physician Advisor ProgressNote .: Pursuant to the plan for [facility] [place], I have reviewed the medical record for this patient. Physician Advisor Statement: Please consider documenting, if you agree: 1. By time of d/c, the most likely cause of pt's acute generalized abd pain/N/V . [prednisone? acute gastroenteritis? ...] 2. "Chronic diastolic CHF, due to nonischemic cardiomyopathy" - & "mild pulmonary hypertension" [per ECHO 01/18/17] 3. Please give supporting information for dx of "hypoxemia" (in H&P), or state if it was ruled out. 4. Type of chronic asthma (reference below) - & supporting findings for dx of acute exacerbation this visit. 5. Medical necessity: if pt clinically not yet safe for d/c on 06/21, please document reasons & ongoing concerns. Status: appropriately Obs so far, but if pt continues to be clinically unsafe for d/c today, there may be reason to consider Inpt status - await further attending documentation. Thanks for all you do! CK Dx of type of chronic asthma is based on worst category in which pt has at least 1 of following s/s present at baseline: A. Mild Intermittent: only needs albuterol occasionally. B. Mild Persistent: sx >2x/wk, nocturnal sx up to 4x/mo, FEV1 80+% predicted C. Mod Persistent: sx (or albuterol) daily, nocturnal sx >1x/wk, FEV1 60-80% predicted D. Severe Persistent: activities curtailed, frequent exacerbations, noct sx frequent, FEV1 <60% predicted. Note: ED nurse mando states pt unable to lie flat due to SOB, having exertional SOB, intermittent cough, wheezes, & rhonchi.
[2017-06-21] MEDS ORDERED: ASPIRIN 81 MG TABLET, CHEWABLE PO SCH (10:00)
[2017-06-21] MEDS ORDERED: RIFAXIMIN 550 MG TABLET PO SCH (10:00)
[2017-06-21] MEDS ORDERED: DULOXETINE HCL 30 MG CAPSULE.DR PO SCH (10:00)
[2017-06-21] MEDS ORDERED: TIOTROPIUM BROMIDE DPI 5 CAP/KIT (18 MCG/CAP) IH SCH (10:00)
[2017-06-21] MEDS ORDERED: METOPROLOL SUCCINATE 50 MG TAB.SR.24H PO SCH (10:00)
[2017-06-21] MEDS ORDERED: LOSARTAN POTASSIUM 50 MG TABLET PO SCH (10:00)
[2017-06-21] MEDS ORDERED: APIXABAN 5 MG TABLET PO SCH (10:00)
[2017-06-21] MEDS ORDERED: DILTIAZEM HCL 120 MG CAP.SR.24H PO SCH (10:00)
[2017-06-21] MEDS ORDERED: ROFLUMILAST 500 MCG TABLET PO SCH (10:00)
[2017-06-21] MEDS ORDERED: GLIMEPIRIDE 4 MG TABLET PO SCH (10:00)
[2017-06-21] MEDS: CIPROFLOXACIN 400 MG/D5W RTU 400 MG/200 ML RTUPB IV SCH (10:15)
[2017-06-21] MEDS: METFORMIN HCL 500 MG TABLET PO SCH ×2 (10:15→17:48)
[2017-06-21] MEDS: PANTOPRAZOLE SODIUM 40 MG VIAL IV SCH (10:17)
[2017-06-21 15:42] VITALS: BP 93/51
--- NOTE | 2017-06-21 20:31 | PDOC DISCHARGE SUMMARY ---
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 (7) Paroxysmal atrial fibrillation Is this a current diagnosis for this admission?: Yes (8) Pulmonary hypertension Is this a current diagnosis for this admission?: Yes - Additional Information Resuscitation Status: Full Code Discharge Diet: Diabetic Discharge Activity: Activity As Tolerated Home Medications: Apixaban [Eliquis 5 mg Tablet] 5 mg PO Q12 06/20/17 Aspirin [Aspirin 81 mg Chewable Tablet] 81 mg PO DAILY 06/20/17 Atorvastatin Calcium [Lipitor 80 mg Tablet] 80 mg PO QHS 06/20/17 Butalb/Acetaminophen/Caffeine [Hdzfeq-Xwanrlqi-Dbxh 50-300-40] 1 cap PO Q4HP PRN 06/20/17 Calcium Carbonate/Vitamin D3 [Calcium 500-Vit D3 600 Caplet] 1 tab PO [id number] Chlorpheniramine Maleate [Chlor-Trimeton 4 mg Tablet] 4 mg PO Q6HP PRN 06/20/17 Diltiazem HCl [Diltiazem 12Hr ER] 120 mg PO DAILY 06/20/17 Docusate Sodium [Colace 100 mg Capsule] 100 mg PO BIDP PRN 06/20/17 Duloxetine HCl [Cymbalta] 60 mg PO DAILY 06/20/17 Furosemide [Lasix 40 mg Tablet] 40 mg PO DAILY 06/20/17 Gabapentin [Neurontin 300 mg Capsule] 300 mg PO Q8 06/20/17 Glimepiride [Amaryl 4 mg Tablet] 4 mg PO DAILY 06/20/17 Ipratropium/Albuterol Sulfate [Iprat-Albut 0.5-3(2.5) mg/3 ml] 3 ml NEB Q6 06/20 Levothyroxine Sodium [Synthroid 0.025 mg Tablet] 0.025 mg PO Q6AM 06/20/17 Levothyroxine Sodium [Synthroid] 200 mcg PO Q6AM 06/20/17 Losartan Potassium [Cozaar 100 mg Tablet] 100 mg PO DAILY 06/20/17 Metformin HCl [Glucophage] 1,000 mg PO BID 06/20/17 Metoprolol Succinate [Toprol Xl 50 mg Tab.sr] 50 mg PO DAILY 06/20/17 Naloxone HCl [Evzio] 0.4 ml IM PRN PRN 06/20/17 Potassium Chloride [Klor-Con M20] 20 meq PO DAILY 06/20/17 Rifaximin [Xifaxan 550 mg Tablet] 550 mg PO DAILY 06/20/17 Roflumilast [Daliresp 500 mcg Tablet] 500 mcg PO DAILY 06/20/17 Tiotropium [place] [Spiriva Handihaler 5 Cap/Kit (18 Mcg/Cap)] 1 puff IN DAILY 06/20/17 Tizanidine HCl [Zanaflex 4 mg Tablet] 4 mg PO Q8HP PRN 06/20/17 History of Present Illness History of Present Illness: Patient is a 71-year-old female with multiple comorbid conditions including chronic obstructive pulmonary disease, paroxysmal atrial fibrillation, liver cirrhosis due to Soto, type 2 diabetes mellitus, osteoporotic fracture of the thoracic spine, nonischemic cardiomyopathy, history of tobacco abuse. She came to the emergency room for evaluation of abdominal pain, in the emergency room she was seen and evaluated, part of the evaluation involved a CAT scan of the abdomen and pelvis, it was negative for any acute pathology, she was also found to have severe leukocytosis with white cell count over 20,000, because of this constellation of signs and symptoms ,surgical abdomen was suspected, consultation was requested from surgery, she was evaluated and it was felt that it is not a surgical abdomen.She was also found to have a low blood pressure, she was treated empirically with IV antibiotic because it was felt that she may have acute diverticulitis. Patient is well known to me, I saw her in the office last week when she presented with acute COPD exacerbation. She was given prescription for tapered dose prednisone, antibiotic the leukocytosis is probably related to the prednisone that she is taking. Hospital Course Hospital Course: Patient was admitted for observation and management of abdominal pain, she was treated empirically with IV antibiotic, patient improved and she is been discharge home today Physical Exam Vital Signs: Temp Pulse Resp BP Pulse Ox 98.1 F 65 18 93/51 L 100 06/21/17 17:34 06/21/17 17:34 06/21/17 17:34 06/21/17 17:34 06/21/17 17:34 Intake & Output 06/20/17 06/21/17 06/22/17 06:59 06:59 06:59 Intake Total 1546 1727 1925 Output Total 400 900 500 Balance 6985 603 3927 Weight 79.7 kg 79 kg General appearance: PRESENT: no acute distress, well-developed, well-nourished Head exam: PRESENT: atraumatic, normocephalic Eye exam: PRESENT: conjunctiva pink, EOMI, PERRLA. ABSENT: scleral icterus Ear exam: PRESENT: normal external ear exam Mouth exam: PRESENT: moist, tongue midline Neck exam: PRESENT: full ROM Respiratory exam: PRESENT: clear to auscultation benjamin Cardiovascular exam: PRESENT: RRR, +S1, +S2 Pulses: PRESENT: normal dorsalis pedis pul, +2 pedal pulses bilateral Vascular exam: PRESENT: normal capillary refill GI/Abdominal exam: PRESENT: normal bowel sounds, soft Rectal exam: PRESENT: deferred Neurological exam: PRESENT: alert, awake, oriented to person, oriented to place , oriented to time, oriented to situation, CN II-XII grossly intact. ABSENT: motor sensory deficit Psychiatric exam: PRESENT: appropriate affect, normal mood. ABSENT: homicidal ideation, suicidal ideation Skin exam: PRESENT: dry, intact, warm. ABSENT: cyanosis, rash Results Laboratory Results: 06/21/17 04:28 06/21/17 04:28 06/21/17 06/21/17 04:28 04:28 WBC 14.5 H RBC 4.05 Hgb 9.0 L Hct 28.5 L MCV 70 L MCH 22.2 L MCHC 31.5 L RDW 17.9 H Plt Count 282 Seg Neutrophils % 72.8 Lymphocytes % 19.2 Monocytes % 5.7 Eosinophils % 1.5 Basophils % 0.8 Absolute Neutrophils 10.6 H Absolute Lymphocytes 2.8 Absolute Monocytes 0.8 Absolute Eosinophils 0.2 Absolute Basophils 0.1 Sodium 137.5 Potassium 3.8 Chloride 103 Carbon Dioxide 23 Anion Gap 12 BUN 19 Creatinine 0.87 Est GFR ( Amer) > 60 Est GFR (Non-Af Amer) > 60 Glucose 132 H Calcium 8.8 Impressions: Abdomen/Pelvis CT 06/19/17 17:33 IMPRESSION: 1. No acute abdominopelvic abnormality. 2. Nodular liver, potential cirrhosis. Abdomen Ultrasound 06/20/17 11:04 IMPRESSION: NORMAL RIGHT UPPER QUADRANT ULTRASOUND. PANCREAS PARTIALLY OBSCURED BY GAS.
[2017-06-21] MEDS ORDERED: ATORVASTATIN CALCIUM 80 MG TABLET PO SCH (22:00)
== END 2017-06-21 18:38 | disposition home or self-care (01) ==
LOC: ER 16:40 → INTOOBSV 20:16 → EH 20:16 → 3W 21:54
PROVIDERS: ADMIT Internal Medicine; ATTEND Internal Medicine
PROC: 3E0234Z Introduction of Serum, Toxoid and Vaccine into Muscle, Percutaneous Approach (ICD-10-PCS; principal; 2017-06-21)
PROC: 3E0F7GC Introduction of Other Therapeutic Substance into Respiratory Tract, Via Natural or Artificial Opening (ICD-10-PCS; 2017-06-21)
DX: R10.84 Generalized abdominal pain (principal); J44.1 Chronic obstructive pulmonary disease with (acute) exacerbation; E11.9 Type 2 diabetes mellitus without complications; R09.02 Hypoxemia; K75.81 Nonalcoholic steatohepatitis (NASH); I48.0 Paroxysmal atrial fibrillation; I27.20 Pulmonary hypertension, unspecified; I42.8 Other cardiomyopathies; D72.829 Elevated white blood cell count, unspecified; R23.2 Flushing; R23.1 Pallor; I25.10 Atherosclerotic heart disease of native coronary artery without angina pectoris; K57.30 Diverticulosis of large intestine without perforation or abscess without bleeding; A41.9 Sepsis, unspecified organism; R10.11 Right upper quadrant pain; R63.0 Anorexia; R68.83 Chills (without fever); E03.9 Hypothyroidism, unspecified; I25.2 Old myocardial infarction; Z68.29 Body mass index [BMI] 29.0-29.9, adult; Z79.899 Other long term (current) drug therapy; Z79.82 Long term (current) use of aspirin; Z87.891 Personal history of nicotine dependence; Z23 Encounter for immunization
CPT/HCPCS: 99285; 96375; 96365; 36415 ×3; 87040; 87086; 82962 ×2; 83690; 85025 ×3; 81025; 80076; 80048 ×2; 80053; 81001; 82803; 83605; 76705; 74177; 90686; 94640 ×3; G0378 ×4; J3490 ×3; J1650; J1170; S0164 ×3; J2405; J7030 ×2; J3370; J0744 ×3; A9270; J7620 ×3; J2543

== ENCOUNTER 2017-07-08 22:30 | Inpatient (IN) | payer BC, MEDICARE ==
[2017-07-08] MEDS ORDERED: ONDANSETRON HCL INJ/PF 4 MG/2 ML SDV IV ONE (23:16)
--- NOTE | 2017-07-08 23:19 | ER Document Report ---
ED General - General Stated Complaint: SHORTNESS OF BREATH Time Seen by Provider: 07/08/17 23:08 Notes: Patient is a 71-year-old female that comes emergency department for chief complaint of 1 week of worsening cough and shortness of breath, she denies fever , she also states that coming by ambulance she got nauseated, vomited, and now has some upper abdominal discomfort and nausea. She has had some chills. She has COPD, wears 2 L nasal cannula only as needed at home, she also has history of CHF but was taken off of Lasix 1 month ago. Additional medical history includes CAD, type 2 diabetes. TRAVEL OUTSIDE OF THE [place] IN LAST 30 DAYS: No - Related Data Allergies/Adverse Reactions: No Known Allergies Allergy (Verified 03/20/17 20:25) Past Medical History - General Information source: Patient, Relative - Social History Smoking Status: Former Smoker Frequency of alcohol use: None Drug Abuse: None Lives with: Family Family History: CAD, CVA, DM, Hyperlipidemia, Hypertension, Malignancy, Thyroid Disfunction - Past Medical History Cardiac Medical History: Reports: Hx Atrial Fibrillation, Hx Congestive Heart Failure, Hx Coronary Artery Disease, Hx Heart Attack - , Hx Hypercholesterolemia, Hx Hypertension Pulmonary Medical History: Reports: Hx Asthma - INHALER, Hx COPD, Hx Pneumonia Denies: Hx Bronchitis, Hx Tuberculosis Neurological Medical History: Denies: Hx Cerebrovascular Accident, Hx Seizures Endocrine Medical History: Reports: Hx Diabetes Mellitus Type 2, Hx Hypothyroidism Renal/ Medical History: Denies: Hx Peritoneal Dialysis GI Medical History: Reports: Hx Cirrhosis. Denies: Hx Hepatitis, Hx Hiatal Hernia, Hx Ulcer Musculoskeltal Medical History: Reports Hx Arthritis Psychiatric Medical History: Reports: Hx Depression Infectious Medical History: Denies: Hx Hepatitis Past Surgical History: Reports: Hx Abdominal Surgery - HERNIA X2, Hx Breast Surgery - lump removal x2, Hx Cardiac Catheterization, Hx Orthopedic Surgery - back, Hx Umbilical Hernia, Other - Kyphoplasty of the thoracic spine Infraumbilical hernia repair, janny. Denies: Hx Hysterectomy, Hx Mastectomy, Hx Open Heart Surgery, Hx Pacemaker - Immunizations Immunizations up to date: Yes Hx Diphtheria, Pertussis, Tetanus Vaccination: No Hx Pneumococcal Vaccination: 04/03/12 Review of Systems - Review of Systems Constitutional: See HPI EENT: No symptoms reported Cardiovascular: No symptoms reported Respiratory: See HPI Gastrointestinal: See HPI Genitourinary: No symptoms reported Female Genitourinary: No symptoms reported Musculoskeletal: No symptoms reported Skin: No symptoms reported Hematologic/Lymphatic: No symptoms reported Neurological/Psychological: No symptoms reported Physical Exam - Vital signs Vitals: Resp Pulse Ox 23 H 100 07/08/17 23:08 07/08/17 23:08 - General General appearance: Other - Patient generally unwell in appearance although she is alert and conversational - Respiratory Respiratory status: No respiratory distress. No: Respiratory distress, Labored , Tachypnea Breath sounds: Decreased air movement. No: Nonproductive cough - Cardiovascular Rhythm: Regular. No: Tachycardia Heart sounds: Normal auscultation, S1 appreciated, S2 appreciated - Abdominal Inspection: Normal Tenderness: Tender - There is tenderness generally in the epigastric areas, there is very mild tenderness generally in the lower abdomen, nonspecific, no guarding, no rebound tenderness - Back Back: Normal, Nontender - Extremities General upper extremity: Normal inspection, Nontender, Normal strength, Normal temperature General lower extremity: Normal inspection, Nontender, Normal strength, Normal temperature. No: Edema - Neurological Neuro grossly intact: Yes Cognition: Normal Tamie Coma Scale Verbal: Oriented Speech: Normal Cranial nerves: Normal Cerebellar coordination: Normal Motor strength normal: LUE, RUE, LLE, RLE Additional motor exam normals: Equal waterproof material folder - Psychological Associated symptoms: Normal affect, Normal mood - Skin Skin Temperature: Warm Skin Moisture: Dry Skin Color: Normal Course - Re-evaluation Re-evalutation: Patient initially complaining of cough and wheezing for 1 week per EMS although she started vomiting and complaining of abdominal pain and route. She does have upper abdominal tenderness. She has generalized abdominal tenderness as well. She is tachycardic and ill-appearing. Wheezing resolved after DuoNeb treatment by EMS. Chest x-ray does not show any acute concerning abnormalities. CBC shows marked leukocytosis at 40,000, she is on prednisone and finishing up 1 month of prednisone but this seems surprisingly elevated. Chemistry shows elevated BUN, mildly elevated LFTs, generally nonspecific. Lipase is elevated at 730 suggesting the patient's epigastric pain is from pancreatitis. Very elevated at 4.4. Urine is still pending. CAT scan shows questionable pyelonephritis, possible constipation/ileus, no abscess, no perforation, no obstructing pathology. Starting vancomycin and Zosyn. Discussed with Dr. Arnold. Urinalysis finally obtained, shows dehydration but does not specifically show infection. Discussed with Dr. Hnutley. Patient will be admitted for Dr. Melara to the IMCU. Spoke with patient and about this, they state understanding and agreement with plan. Spoke with Dr. Huntley, he requests ultrasound of the abdomen to rule out ductal obstructive pathology. This was performed. On reevaluation patient has some wheezing again secondary to her COPD, will be given treatment, also magnesium. - Vital Signs Vital signs: Temp Pulse Resp BP Pulse Ox 97.7 F 27 H 142/88 H 97 07/09/17 04:52 07/09/17 04:30 07/09/17 04:30 07/09/17 04:30 - Laboratory Result Diagrams: 07/08/17 23:43 07/08/17 23:43 Laboratory results interpreted by me: 07/08/17 07/08/17 07/09/17 23:43 23:43 02:41 WBC 41.1 H* Hgb 11.7 L Hct 34.9 L MCV 70 L MCH 23.5 L RDW 18.1 H Plt Count 595 H Seg Neuts % (Manual) 92 H Lymphocytes % (Manual) 2 L Abs Neuts (Manual) 39.0 H BUN 29 H Est GFR (Non-Af Amer) 58 L Glucose 207 H Lactic Acid 4.4 H Calcium 10.3 H AST 62 H ALT 70 H Alkaline Phosphatase 161 H Lipase 730.3 H Urine Protein Urine Glucose (UA) Urine Blood Urine Urobilinogen 07/09/17 03:45 WBC Hgb Hct MCV MCH RDW Plt Count Seg Neuts % (Manual) Lymphocytes % (Manual) Abs Neuts (Manual) BUN Est GFR (Non-Af Amer) Glucose Lactic Acid Calcium AST ALT Alkaline Phosphatase Lipase Urine Protein 100 H Urine Glucose (UA) 50 H Urine Blood SMALL H Urine Urobilinogen 2.0 H Discharge - Discharge Clinical Impression: Dehydration Vomiting Qualifiers: Vomiting type: unspecified Vomiting Intractability: non-intractable Nausea presence: with nausea Qualified Code(s): R11.2 - Nausea with vomiting, unspecified Abdominal pain Qualifiers: Abdominal location: generalized Qualified Code(s): R10.84 - Generalized abdominal pain Leukocytosis Qualifiers: Leukocytosis type: unspecified Qualified Code(s): D72.829 - Elevated white blood cell count, unspecified COPD (chronic obstructive pulmonary disease) Qualifiers: COPD type: unspecified COPD Qualified Code(s): J44.9 - Chronic obstructive pulmonary disease, unspecified Condition: Fair Disposition: ADMITTED INPATIENT Admitting Provider: Dianenv Unit Admitted: IMCU Referrals: ALVINA KNOWLES PA-C [Primary Care Provider] - Follow up as needed
[2017-07-08 23:58] LABS: VENOUS BLOOD HCO3 28.8 mmol/L (20-32); VENOUS BLOOD PCO2 55.7 mmHg (35-63); VENOUS BLOOD PH 7.33 (7.30-7.42)
[2017-07-09 00:09] LABS: HEMATOCRIT 34.9 % (36.0-47.0); MEAN CORPUSCULAR VOLUME 70 fl (80-97); PLATELET COUNT 595 10^3/uL (150-450); RED BLOOD COUNT 4.99 10^6/uL (3.72-5.28); RED CELL DISTRIBUTION WIDTH 18.1 % (11.5-14.0)
[2017-07-09 00:23] LABS: ALANINE AMINOTRANSFERASE 70 U/L (9-52); ALBUMIN 4.6 g/dL (3.5-5.0); ALKALINE PHOSPHATASE 161 U/L (38-126); ANION GAP 17 (5-19); ASPARTATE AMINO TRANSFERASE 62 U/L (14-36); BILIRUBIN,DIRECT 0.3 mg/dL (0.0-0.4); BILIRUBIN,TOTAL 0.5 mg/dL (0.2-1.3); BLOOD UREA NITROGEN 29 mg/dL (7-20); CALCIUM 10.3 mg/dL (8.4-10.2); CARBON DIOXIDE 28 mmol/L (22-30); CHLORIDE 99 mmol/L (98-107); CREATINE KINASE 43 U/L (30-135); GLUCOSE 207 mg/dL (75-110); LIPASE 730.3 U/L (23-300); POTASSIUM 4.1 mmol/L (3.6-5.0); SODIUM 144.3 mmol/L (137-145); TOTAL PROTEIN 7.3 g/dL (6.3-8.2)
[2017-07-09 00:31] LABS: ABSOLUTE LYMPHOCYTES# (MANUAL) 0.8 10^3/uL (0.5-4.7); ABSOLUTE MONOCYTES # (MANUAL) 1.2 10^3/uL (0.1-1.4); BAND NEUTROPHILS % (MANUAL) 3 % (3-5); BASOPHILS % (MANUAL) 0 % (0-2); EOSINOPHILS % (MANUAL) 0 % (0-6); LYMPHOCYTES % (MANUAL) 2 % (13-45); MONOCYTES % (MANUAL) 3 % (3-13); SEGMENTED NEUTROPHILS % (MAN) 92 % (42-78); TOTAL CELLS COUNTED 100
[2017-07-09 00:33] LABS: TROPONIN I 0.014 ng/mL
[2017-07-09 00:34] LABS: ANISOCYTOSIS 2+; HYPOCHROMASIA 1+; OVALOCYTES 1+; POIKILOCYTOSIS 1+; POLYCHROMASIA 1+; TEAR DROP CELLS SLIGHT; TOXIC GRANULATION SLIGHT
[2017-07-09 00:35] LABS: PLATELET COMMENT INCREASED
[2017-07-09 00:37] LABS: WHITE BLOOD COUNT 41.1 10^3/uL (4.0-10.5)
[2017-07-09 00:39] LABS: HEMOGLOBIN 11.7 g/dL (12.0-15.5)
[2017-07-09 00:40] LABS: MEAN CORPUSCULAR HEMOGLOBIN 23.5 pg (27.0-33.4); MEAN CORPUSCULAR HGB CONC 33.6 g/dL (32.0-36.0)
[2017-07-09 00:41] LABS: PLATELET CLUMPS PRESENT
--- NOTE | 2017-07-09 01:01 | RADIOLOGY REPORT (SQ) ---
EXAM DESCRIPTION: CHEST SINGLE VIEW CLINICAL HISTORY: 71 years, Female, shortness of breath, cough COMPARISON: 03/20/2017. FINDINGS: Mild, chronic interstitial markings of the lower lung de leon, adequate lung volume, normal cardiac silhouette, atherosclerosis, and intact bony structures. IMPRESSION: No significant interval change. 2011 [employer]- All Rights Reserved
[2017-07-09] MEDS ORDERED: NORMAL SALINE 1000 ML 1,000 ML IV ONE ×2 (01:07→03:19)
[2017-07-09] MEDS ORDERED: HYDROMORPHONE HCL INJ/PF 2 MG/ML AMPULE IV ONE (01:07)
[2017-07-09 02:18] LABS: A TYPE INFLUENZA AG NEGATIVE (NEGATIVE); B INFLUENZA AG NEGATIVE (NEGATIVE)
--- NOTE | 2017-07-09 03:06 | RADIOLOGY REPORT (SQ) ---
EXAM DESCRIPTION: CT ABD/PELVIS WITH IV ONLY CLINICAL HISTORY: 71 years Female, vomiting, upper abd pain, leukocytosis, elev lipas COMPARISON: 06.19.17 TECHNIQUE: 83 mL Isovue-370 IV contrast. Coronal and sagittal reformat. This exam was performed according to our departmental dose-optimization program, which includes automated exposure control, adjustment of the mA and/or kV according to patient size and/or use of iterative reconstruction technique. FINDINGS: Mild patchy low attenuation enhancement of the right kidney particularly during cortical phase imaging may indicate pyelonephritis or artifact. Additional bilateral likely benign renal cysts measuring up to 1.5 cm on the left. Hepatic macro nodularity may indicate cirrhosis. Moderate extensive stool retention. Normal appendix. Mild fat replacement of the pancreas. Atherosclerosis. L5 vertebroplasty, moderate T12 compression deformity/vertebroplasty, and T7, T9 vertebral plasties. Inferior thorax, gallbladder, spleen, adrenals, gastrointestinal tract, pelvic organs, lymphatics, vasculature, and musculoskeleton appear otherwise unremarkable. No significant free fluid. IMPRESSION: 1. Possible right pyelonephritis. 2. Possible cirrhosis. 3. Moderate colonic stool retention/ileus.
[2017-07-09] MEDS ORDERED: PIPERACILLIN/TAZOBACTAM 3.375 GM VIAL IV ONE (03:19)
[2017-07-09] MEDS ORDERED: VANCOMYCIN HCL INJ 1000 MG VIAL IV ONE ×2 (03:19→03:22)
[2017-07-09] MEDS ORDERED: IPRATROPIUM/ALBUTEROL 0.5-2.5 MG/3 ML AMPUL NEB ONE (03:55)
[2017-07-09 04:06] LABS: BILIRUBIN,URINE NEGATIVE (NEGATIVE); GLUCOSE, URINE 50 mg/dL (NEGATIVE); KETONES,URINE NEGATIVE (NEGATIVE); LEUKOCYTE ESTERASE,URINE NEGATIVE (NEGATIVE); NITRITE,URINE NEGATIVE (NEGATIVE); PROTEIN,URINE 100 mg/dL (NEGATIVE); URINE SPECIFIC GRAVITY 1.047
[2017-07-09 04:07] LABS: APPEARANCE,URINE SLIGHTLY HAZY; COLOR,URINE DARK YELLOW
--- NOTE | 2017-07-09 05:40 | RADIOLOGY REPORT (SQ) ---
EXAM DESCRIPTION: U/S ABDOMEN LIMITED W/O DOP CLINICAL HISTORY: 71 years, Female, elevated lipase, evaluate ducts Technique transabdominal. Limitation: Body habitus and positioning. COMPARISON: 06/20/2017. CT, same day. FINDINGS: Nodular surface of the liver may indicate cirrhosis. Mild hepatic steatosis. Gallbladder, negative sonographic Newton's test, 0.4 cm diameter common duct, 10.9 cm right kidney, obscured pancreas, obscured aorta appear otherwise unremarkable. No intra or extrahepatic ductal dilation, as queried. No significant free fluid. IMPRESSION: No acute findings. Possible cirrhosis. Obscured pancreas/aorta. 2010 [employer]- All Rights Reserved
[2017-07-09] MEDS: MAGNESIUM SULFATE/D5W 1 GM/100 ML RTUPB IV SCH ×2 (05:44→07:44)
[2017-07-09 06:18] LABS: INTERNATIONAL RATION (INR) 1.46; PROTHROMBIN TIME 18.6 SEC (11.4-15.4)
[2017-07-09 06:19] LABS: PARTIAL THROMBOPLASTIN TIME 28.6 SEC (23.5-35.8)
[2017-07-09] MEDS ORDERED: ACETAMINOPHEN 325 MG TABLET PO PRN (07:02)
[2017-07-09] MEDS ORDERED: DEXTROSE 40% GEL 15 GM TUBE PO PRN ×4 (07:02→07:09)
[2017-07-09] MEDS ORDERED: GLUCAGON,HUMAN RECOMB 1 MG INJ SUBCUT PRN (07:02)
[2017-07-09] MEDS ORDERED: DEXTROSE 50%-WATER 25 GM/50 ML DISP.SYRIN IV PRN ×4 (07:02→07:09)
[2017-07-09] MEDS ORDERED: NORMAL SALINE 1000 ML 1,000 ML IV PRN (07:02)
[2017-07-09] MEDS ORDERED: GLUCAGON,HUMAN RECOMB 1 MG INJ IM PRN (07:09)
[2017-07-09] MEDS ORDERED: INSULIN LISPRO 100 UNIT/ML 3 ML VIAL SUBCUT PRN (07:09)
[2017-07-09] MEDS: ONDANSETRON HCL INJ/PF 4 MG/2 ML SDV IV PRN ×2 (08:45→09:55)
[2017-07-09] MEDS: IPRATROPIUM/ALBUTEROL 0.5-2.5 MG/3 ML AMPUL NEB SCH ×2 (09:05→09:53)
[2017-07-09] MEDS ORDERED: VANCOMYCIN HCL 0 MG in DEXTROSE 5%-WATER 250 ML IV NR (09:30)
[2017-07-09] MEDS ORDERED: PANTOPRAZOLE SODIUM 40 MG VIAL IV SCH (10:00)
[2017-07-09] MEDS ORDERED: ENOXAPARIN SODIUM INJ 40 MG/0.4 ML DISP.SYRIN SUBCUT SCH (10:00)
[2017-07-09] MEDS ORDERED: DOCUSATE SODIUM 100 MG CAPSULE PO SCH (10:00)
--- NOTE | 2017-07-09 10:55 | PDOC H&P ---
History of Present Illness Admission Date/PCP: 07/09/17 06:01 ROWENA CLEANING MD Patient complains of: Abdominal pain nausea and vomiting History of Present Illness: BAIRON FU is a 71 year old female This 71-year-old female the patient of Dr. Cleaning with the history of the COPD and a 2 L nasal cannula and a significant history of the abdominal pain with ongoing problem for several months have extensive evaluations done have a history of the endoscopy and colonoscopy done in the last year and swelling some diverticulosis and a CT abdomen and pelvis done last month which stable seen by the general surgery not suggest any surgically intervention at the time and a history of the cirrhosis of the liver and a coronary disease came to the emergency department with increasing some abdominal pain nausea and vomiting since last several days and the emergency department patient's white count was 41,000 having no fever patient CT abdomen and pelvis was done with so some cirrhosis of the liver but no other acute finding and the patient also chest x- ray was also negative's Since lactic acid is also elevated Was giving the vancomycin and Zosyn When I saw the patient patient was still having some respiratory distress and the patient's at this point a CT angiogram order for further evaluations Very extensive discussions with the patient and the and the bedside regarding the patient's current conditions with the sepsis respiratory distress and unclear etiology about abdominal pain pt also have a persistent nausea and vomiting She denied any chest pain Since recently see a cardiology at [place] and suggests a small vessels disease Patient still have abdominal pain especially in the epigastric area Chronic steroid with a tapering dose Past Medical History Cardiac Medical History: Reports: Atrial Fibrillation, Congestive Heart Failure , Coronary Artery Disease, Myocardial Infarction - , Hyperlipidema, Hypertension Pulmonary Medical History: Reports: Asthma - INHALER, Chronic Obstructive Pulmonary Disease (COPD), Pneumonia Denies: Bronchitis, Tuberculosis Neurological Medical History: Denies: Seizures Endocrine Medical History: Reports: Diabetes Mellitus Type 2, Hypothyroidism GI Medical History: Reports: Cirrhosis Denies: Hepatitis, Hiatal Hernia Musculoskeltal Medical History: Reports: Arthritis Psychiatric Medical History: Reports: Depression Hematology: Reports: Anemia Denies: Sickle Cell Disease Past Surgical History Past Surgical History: Reports: Cardiac Catheterization, Orthopedic Surgery - back, Other - Kyphoplasty of the thoracic spine Infraumbilical hernia repair, janny Denies: Hysterectomy, Mastectomy, Pacemaker Social History Lives with: Family Smoking Status: Former Smoker Frequency of Alcohol Use: None Hx Recreational Drug Use: No Drugs: None Hx Prescription Drug Abuse: No Family History Family History: CAD, CVA, DM, Hyperlipidemia, Hypertension, Malignancy, Thyroid Disfunction Parental Family History Reviewed: Yes Children Family History Reviewed: Yes Sibling(s) Family History Reviewed.: Yes Medication/Allergy Allergies/Adverse Reactions: No Known Allergies Allergy (Verified 03/20/17 20:25) Review of Systems Constitutional: PRESENT: fatigue, weakness Cardiovascular: PRESENT: dyspnea on exertion Respiratory: PRESENT: cough Gastrointestinal: PRESENT: abdominal pain, bloating, coffee ground emesis, dysphagia, heartburn, nausea, vomiting Genitourinary: ABSENT: as per HPI, difficulty urinating, dysuria, hematuria, nocturia, other Musculoskeletal: ABSENT: as per HPI, back pain, deformity, joint swelling, muscle weakness, other Neurological: ABSENT: as per HPI, abnormal gait, abnormal movements, abnormal speech, confusion, convulsions, dizziness, focal weakness, frequent falls, lack of coordination, memory loss, numbness, paresthesias, restless legs, syncope, tingling, tremor(s), vertigo, weakness, other Psychiatric: PRESENT: anxiety Physical Exam Vital Signs: Temp Pulse Resp BP Pulse Ox 97.7 F 97 18 118/92 H 93 07/09/17 04:52 07/09/17 09:10 07/09/17 09:10 07/09/17 06:30 07/09/17 09:10 Intake & Output 07/08/17 07/09/17 07/10/17 06:59 06:59 06:59 Weight 83.461 kg General appearance: PRESENT: mild distress, well-developed, well-nourished Head exam: PRESENT: atraumatic, normocephalic Eye exam: PRESENT: conjunctiva pink, EOMI, PERRLA. ABSENT: scleral icterus Ear exam: PRESENT: normal external ear exam Mouth exam: PRESENT: moist, tongue midline Neck exam: PRESENT: full ROM. ABSENT: carotid bruit, JVD, lymphadenopathy, thyromegaly Respiratory exam: PRESENT: decreased breath sounds Cardiovascular exam: PRESENT: RRR. ABSENT: diastolic murmur, rubs, systolic murmur Pulses: PRESENT: normal dorsalis pedis pul, +2 pedal pulses bilateral Vascular exam: PRESENT: normal capillary refill GI/Abdominal exam: PRESENT: normal bowel sounds, soft, tenderness. ABSENT: distended, guarding, mass, organolmegaly, rebound Additonal comments: Generalized tenderness without guarding or rigidity with some mild distention of the abdomen Rectal exam: PRESENT: deferred Extremities exam: ABSENT: pedal edema Neurological exam: PRESENT: alert, awake, oriented to person, oriented to place , oriented to time, oriented to situation, CN II-XII grossly intact. ABSENT: motor sensory deficit Psychiatric exam: PRESENT: appropriate affect, normal mood. ABSENT: homicidal ideation, suicidal ideation Skin exam: PRESENT: dry, intact, warm. ABSENT: cyanosis, rash Results Laboratory Results: 07/09/17 06:45 Lactic Acid 6.0 H Impressions: Chest X-Ray 07/08/17 23:15 IMPRESSION: No significant interval change. 2010 [employer]- All Rights Reserved Abdomen/Pelvis CT 07/09/17 01:08 IMPRESSION: 1. Possible right pyelonephritis. 2. Possible cirrhosis. 3. Moderate colonic stool retention/ileus. Abdomen Ultrasound 07/09/17 04:31 IMPRESSION: No acute findings. Possible cirrhosis. Obscured pancreas/aorta. 2010 [employer]- All Rights Reserved Assessment & Plan - Diagnosis (1) Abdominal pain Qualifiers: Abdominal location: generalized Qualified Code(s): R10.84 - Generalized abdominal pain Is this a current diagnosis for this admission?: Yes Plan: Possible mild pancreatitis but very unclear etiology we will consult the general surgery for further evaluations (2) Septicemia Is this a current diagnosis for this admission?: Yes Plan: Severe leukocytosis possible from the pancreas but not very clear etiology possible respiratory source Start the patient on a broad-spectrum IV antibiotic (3) COPD (chronic obstructive pulmonary disease) Qualifiers: COPD type: unspecified COPD Qualified Code(s): J44.9 - Chronic obstructive pulmonary disease, unspecified Is this a current diagnosis for this admission?: Yes Plan: Continues to nebulizer treatments (4) Leukocytosis Qualifiers: Leukocytosis type: unspecified Qualified Code(s): D72.829 - Elevated white blood cell count, unspecified Is this a current diagnosis for this admission?: Yes Plan: Get the all the cultures and put the patient on a broad-spectrum antibiotic (5) Acute hypoxemic respiratory failure Is this a current diagnosis for this admission?: Yes Plan: Get the ABG and a CT scan of the chestand conslut pulmonary (6) Diabetes mellitus type 2 in nonobese Is this a current diagnosis for this admission?: Yes (7) Cirrhosis of liver Qualifiers: Hepatic cirrhosis type: unspecified hepatic cirrhosis Ascites presence: without ascites Qualified Code(s): K74.60 - Unspecified cirrhosis of liver Is this a current diagnosis for this admission?: Yes (8) Coronary artery disease Is this a current diagnosis for this admission?: Yes Plan: Patient is currently see cardiology at [place] (9) Coffee ground emesis Is this a current diagnosis for this admission?: Yes Plan: The patient n.p.o. consult the general surgery get the guaiac study (10) Acute pancreatitis Qualifiers: Pancreatitis type: unspecified pancreatitis type Is this a current diagnosis for this admission?: Yes Plan: Patient n.p.o. 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 Tomas about the patient' s current conditions and consult the pulmonary and see other MD orders Is not sure about the CODE STATUS of the patient
[2017-07-09 11:09] LABS: ARTERIAL BLOOD FIO2 4L; ARTERIAL BLOOD H2CO3 1.24 mmol/L (1.05-1.35); ARTERIAL BLOOD HCO3 20.8 mmol/L (20-26); ARTERIAL BLOOD O2 SATURATION 98.5 % (94-98); ARTERIAL BLOOD PCO2 41.2 mmHg (35-45); ARTERIAL BLOOD PH 7.32 (7.35-7.45); ARTERIAL BLOOD PO2 133.9 mmHg (80-100)
[2017-07-09 11:24] LABS: CREATINE KINASE MB 3.07 ng/mL (<4.55)
[2017-07-09 11:29] LABS: TROPONIN I 0.043 ng/mL
--- NOTE | 2017-07-09 11:46 | EKG REPORT ---
SEVERITY:- BORDERLINE ECG - SINUS TACHYCARDIA WITH APCs BORDERLINE T ABNORMALITIES, ANT-LAT LEADS : Confirmed by: Yaz Sanders 09-Jul-2017 11:45:50
--- NOTE | 2017-07-09 11:46 | RADIOLOGY REPORT (SQ) ---
EXAM DESCRIPTION: CTA CHEST COMPLETED DATE/TIME: 07/09/2017 11:16 am REASON FOR STUDY: sob/hypoxia COMPARISON: CT chest from 01/17/2017. CT abdomen from 07/09/2017. TECHNIQUE: CT scan of the chest performed using helical scanning technique with dynamic intravenous contrast injection. Images reviewed with lung, soft tissue and bone windows. Reconstructed coronal and sagittal MPR images reviewed. Additional 3 dimensional post-processing performed to develop Maximal Intensity Projection images (NC P). All images stored on PACS. All CT scanners at this facility use dose modulation, iterative reconstruction, and/or weight based d osing when appropriate to reduce radiation dose to as low as reasonably achievable (ALARA). [facility]: Dose Right [facility]: CareDose [facility]: Dose Right [facility]: Teradose 4D [facility]: [place] CONTRAST TYPE AND DOSE: contrast/concentration: Isovue 370.00 mg/ml; Total Contrast Delivered: 73.0 ml; Total Saline Delivered: 110.0 ml Contrast bolus optimized for the pulmonary arteries. Not diagnostic for the aorta. RENAL FUNCTION: GFR > 60. RADIATION DOSE: CT Rad equipment meets quality standard of care and radiation dose reduction techniq ues were employed. CTDIvol: 16.5 - 20.8 mGy. DLP: 780 mGy-cm. . LIMITATIONS: None. FINDINGS: LUNGS AND PLEURA: Stable degree of emphysema with scarring. No consolidation, pleural eff usion, or pneumothorax. No suspicious pulmonary nodules. AORTA AND GREAT VESSELS: Atherosclerotic calcifications. No aneurysm. Contrast bolus not optimized for the aorta. HEART: No pericardial effusion. Moderate to marked coronary artery calcifications. PULMONARY ARTERIES: No emboli visualized in the main pulmonary arteries or the segmental branches. HILAR AND MEDIASTINAL STRUCTURES: Fluid refluxing into the proximal esophagus. No identified masses or abnormal nodes. HARDWARE: None in the chest. UPPER ABDOMEN: Again noted is probable cirrhosis and fluid distended stomach. Striated renal nephrog aurelia more pronounced on today's study. THYROID AND OTHER SOFT TISSUES: No masses. No adenopathy. BONES: No acute or significant finding. 3D MIPS: Confirm above findings. OTHER: No other significant finding. IMPRESSION: NO PULMONARY EMBOLI OR ADDITIONAL ACUTE INTRATHORACIC PROCESS IDENTIFIED. FLUID REFLUXING INTO THE ESOPHAGUS IN THE SETTING OF FLUID DISTENDED STOMACH. CORRELATE WITH REFLUX SYMPTOMS. CORONARY ARTERY DISEASE. STRIATED RENAL NEPHROGRAM BILATERALLY MORE PROMINENT ON TODAY'S STUDY MAY BE SECONDARY TO PYELONEPHRI TIS OR ATN/CONTRAST INDUCED NEPHROPATHY. CORRELATE WITH RENAL STUDIES/URINALYSIS. ADDITIONAL CHRONIC CHANGES ABOVE. COMMENT: Quality ID # [id number]: Final reports with documentation of one or more dose reduction techniques (e.g., Automated exposure control, adjustment of the mA and/or kV according to patient size, use of iterative reconstruction technique) TECHNICAL DOCUMENTATION: JOB ID: [id number] [employer]- All Rights Reserved
[2017-07-09] MEDS ORDERED: METRONIDAZOLE 500 MG/NS RTU 100 ML IV SCH (12:00)
[2017-07-09] MEDS ORDERED: PIPERACILLIN SODIUM/TAZOBACTAM 3.375 GM in NORMAL SALINE 100 ML IV SCH (12:00)
[2017-07-09] MEDS ORDERED: ETOMIDATE INJ/PF 20 MG/10 ML SDV IV ONE (12:40)
--- NOTE | 2017-07-09 12:45 | ER Document Report ---
Doctor's Note Notes: 07/09/17 12:43 Patient who has been admitted but still in the emergency department had an episode of vomiting coffee-ground emesis, nursing staff was concerned the patient was not looking well,, I walked into the room emergently and noted the patient is having agonal respirations is extremely pale, I sternal rub the patient there was no response to painful stimuli, respiratory was emergently called and intubation was being prepared. Patient's did enter the room and notes that he does not wish for any further intervention, therefore I did seize the attempt to intubate, I contacted Dr. Huntley and explained to him that wishes for DNR status which I believe is appropriate
[2017-07-09 13:12] VITALS: BP 115/101
--- NOTE | 2017-07-09 16:57 | PDOC CONSULTATION ---
Consultation Consult Date: 07/09/17 Consult reason:: abdominal pains with N/V History of Present Illness Admission Date/PCP: 07/09/17 06:01 ROWENA CLEANING MD Patient complains of: abdominal pains with N/V just prior to coming to ED.Has about a week of worsening cough and SOB History of Present Illness: Cristhian was here last month for abdominal pains which has improved though has not completely gone away according to the .Etiology of pains not clear. Has history of COPD,CHF and liver cirrhosis. Has been having worsening cough and SOB for a week. When brought to ED by Paramedics started to have severe3 epigastric/left juan-umbilical pains with N/V. Vomitus sent for hemoccult. Past Medical History Cardiac Medical History: Reports: Atrial Fibrillation, Congestive Heart Failure , Coronary Artery Disease, Myocardial Infarction - , Hyperlipidema, Hypertension Pulmonary Medical History: Reports: Asthma - INHALER, Chronic Obstructive Pulmonary Disease (COPD), Pneumonia Denies: Bronchitis, Tuberculosis Neurological Medical History: Denies: Seizures Endocrine Medical History: Reports: Diabetes Mellitus Type 2, Hypothyroidism GI Medical History: Reports: Cirrhosis Denies: Hepatitis, Hiatal Hernia Musculoskeltal Medical History: Reports: Arthritis Psychiatric Medical History: Reports: Depression Hematology: Reports: Anemia Denies: Sickle Cell Disease Past Surgical History Past Surgical History: Reports: Cardiac Catheterization, Orthopedic Surgery - back, Other - Kyphoplasty of the thoracic spine Infraumbilical hernia repair, janny Denies: Hysterectomy, Mastectomy, Pacemaker Social History Lives with: Family Smoking Status: Former Smoker Frequency of Alcohol Use: None Hx Recreational Drug Use: No Drugs: None Hx Prescription Drug Abuse: No Family History Family History: CAD, CVA, DM, Hyperlipidemia, Hypertension, Malignancy, Thyroid Disfunction Parental Family History Reviewed: Yes Children Family History Reviewed: No Sibling(s) Family History Reviewed.: No Medication/Allergy Allergies/Adverse Reactions: No Known Allergies Allergy (Verified 03/20/17 20:25) Review of Systems Constitutional: PRESENT: fever(s) Eyes: PRESENT: other - no visual/hearing changes Nose, Mouth, and Throat: PRESENT: other - no sore throat Cardiovascular: PRESENT: other - no chest pains Respiratory: PRESENT: cough, dyspnea Gastrointestinal: PRESENT: abdominal pain, nausea, vomiting Genitourinary: PRESENT: other - no dysuria Musculoskeletal: PRESENT: other - no back pains Neurological: PRESENT: other - no seizures Psychiatric: PRESENT: anxiety Endocrine: PRESENT: other - no polyuria Hematologic/Lymphatic: PRESENT: other - no easy bruisability Physical Exam Vital Signs: Temp Pulse Resp BP Pulse Ox 97.7 F 102 H 14 115/101 H 93 07/09/17 04:52 07/09/17 11:10 07/09/17 12:42 07/09/17 12:42 07/09/17 12:00 Intake & Output 07/08/17 07/09/17 07/10/17 06:59 06:59 06:59 Weight 83.461 kg General appearance: PRESENT: mild distress Head exam: PRESENT: atraumatic Eye exam: PRESENT: conjunctiva pink Mouth exam: PRESENT: moist, tongue midline Neck exam: PRESENT: full ROM Respiratory exam: PRESENT: clear to auscultation benjamin Cardiovascular exam: PRESENT: RRR Pulses: PRESENT: normal radial pulses Vascular exam: PRESENT: normal capillary refill GI/Abdominal exam: PRESENT: soft, tenderness - epigastric and left paraumbilical area Rectal exam: PRESENT: deferred Extremities exam: PRESENT: full ROM Musculoskeletal exam: PRESENT: ambulatory Neurological exam: PRESENT: alert, oriented to person, oriented to place, oriented to time, oriented to situation Psychiatric exam: PRESENT: anxious Skin exam: PRESENT: normal color, warm Results Laboratory Results: 07/09/17 10:43 07/09/17 07/09/17 07/09/17 06:45 10:03 10:43 Carbonic Acid 1.24 HCO3/H2CO3 Ratio 16:1 ABG pH 7.32 L ABG pCO2 41.2 ABG pO2 133.9 H ABG HCO3 20.8 ABG O2 Saturation 98.5 H ABG Base Excess -5.0 FiO2 4L Creatinine 1.53 H Est GFR ( Amer) 41 L Est GFR (Non-Af Amer) 34 L Lactic Acid 6.0 H 07/09/17 07/09/17 10:43 10:43 Creatine Kinase 33 CK-MB (CK-2) 3.07 Troponin I 0.043 Impressions: Chest X-Ray 07/08/17 23:15 IMPRESSION: No significant interval change. 2010 [employer]- All Rights Reserved Chest/Abdomen CTA 07/09/17 00:00 IMPRESSION: NO PULMONARY EMBOLI OR ADDITIONAL ACUTE INTRATHORACIC PROCESS IDENTIFIED. FLUID REFLUXING INTO THE ESOPHAGUS IN THE SETTING OF FLUID DISTENDED STOMACH. CORRELATE WITH REFLUX SYMPTOMS. CORONARY ARTERY DISEASE. STRIATED RENAL NEPHROGRAM BILATERALLY MORE PROMINENT ON TODAY'S STUDY MAY BE SECONDARY TO PYELONEPHRITIS OR ATN/CONTRAST INDUCED NEPHROPATHY. CORRELATE WITH RENAL STUDIES/URINALYSIS. ADDITIONAL CHRONIC CHANGES ABOVE. Abdomen/Pelvis CT 07/09/17 01:08 IMPRESSION: 1. Possible right pyelonephritis. 2. Possible cirrhosis. 3. Moderate colonic stool retention/ileus. Abdomen Ultrasound 07/09/17 04:31 IMPRESSION: No acute findings. Possible cirrhosis. Obscured pancreas/aorta. 2010 [employer]- All Rights Reserved Assessment & Plan - Diagnosis (1) Abdominal pain Qualifiers: Abdominal location: generalized Qualified Code(s): R10.84 - Generalized abdominal pain Is this a current diagnosis for this admission?: Yes (2) Acute pancreatitis Qualifiers: Pancreatitis type: unspecified pancreatitis type Is this a current diagnosis for this admission?: Yes (3) COPD (chronic obstructive pulmonary disease) Qualifiers: COPD type: unspecified COPD Qualified Code(s): J44.9 - Chronic obstructive pulmonary disease, unspecified Is this a current diagnosis for this admission?: Yes (4) Coffee ground emesis Is this a current diagnosis for this admission?: Yes (5) Coronary artery disease Is this a current diagnosis for this admission?: Yes (6) Dehydration Is this a current diagnosis for this admission?: Yes (7) Leukocytosis Qualifiers: Leukocytosis type: unspecified Qualified Code(s): D72.829 - Elevated white blood cell count, unspecified Is this a current diagnosis for this admission?: Yes (8) Septicemia Is this a current diagnosis for this admission?: Yes (9) Vomiting Qualifiers: Vomiting type: unspecified Vomiting Intractability: non-intractable Nausea presence: with nausea Qualified Code(s): R11.2 - Nausea with vomiting, unspecified Is this a current diagnosis for this admission?: Yes (10) 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) Is this a current diagnosis for this admission?: Yes (11) Type 2 diabetes mellitus Qualifiers: Diabetes mellitus complication status: with neurologic complications Diabetes mellitus complication detail: with other neurological complication 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 I think it would be better if she is transfered to a tertiary hospital. prefers [facility] since she has her station inspector there. Other than having her own station inspector, patient will need a GI consultation which we don't have anybody here right now. She needs more ICU care with evidence of Pancreatitis with elevated lipase. With marked elevation in WBC and suspicion for pyelonephritis will need a consultation with ID/metal weigher. Dr Huntley and agreed to transfer to a tertiary hospital preferably [facility]. Note: Cristhian had a vomiting spell followed by respiratory difficulty eventually causing her demised. refused further intubation. Patient likely aspirated.
[2017-07-10] MEDS ORDERED: VANCOMYCIN HCL 1,000 MG in DEXTROSE 5%-WATER 250 ML IV SCH (08:00)
--- NOTE | 2017-07-11 11:18 | Death Summary ---
Summary Date : 07/10/17 Autopsy: No Resuscitation Status: Do Not Resuscitate - Final Diagnosis (1) Abdominal pain Is this a current diagnosis for this admission?: Yes (2) Septicemia Is this a current diagnosis for this admission?: Yes (3) COPD (chronic obstructive pulmonary disease) Is this a current diagnosis for this admission?: Yes (4) Leukocytosis Is this a current diagnosis for this admission?: Yes (5) Acute hypoxemic respiratory failure Is this a current diagnosis for this admission?: Yes (6) Diabetes mellitus type 2 in nonobese Is this a current diagnosis for this admission?: Yes (7) Cirrhosis of liver Is this a current diagnosis for this admission?: Yes (8) Coronary artery disease Is this a current diagnosis for this admission?: Yes (9) Coffee ground emesis Is this a current diagnosis for this admission?: Yes (10) Acute pancreatitis Is this a current diagnosis for this admission?: Yes Hospital Course:: Is a 71-year-old female presenting the emergency department for the abdominal pain and a severe leukocytosis and diagnosed with a possible pyelonephritis and started on broad-spectrum antibiotic with a significant history of the cirrhosis of liver and patient started having some vomiting with coffee ground emesis possible underlying esophageal varicesIn a patient with significant history of the coronary artery disease with the medical management with the history of the end-stage COPD on a 2 L nasal cannula patient's very extensive discussions with the regarding the patient's current conditions and he wants to maintain the DNR/DNI Patient's current more respiratory distress and hypotensive's and the family do not want to go for any further intubation and further interventions and making her more comfort care and patients also way
[2017-07-11 13:31] LABS: PATH REVIEW PATHOLOGIST REVIEWED
== END 2017-07-09 16:56 | disposition left against medical advice (07) | DRG 871 ==
LOC: ER 22:30 → EH 07-09 06:01
PROVIDERS: ADMIT Internal Medicine; ATTEND Internal Medicine
DX: A41.9 Sepsis, unspecified organism (principal); K85.90 Acute pancreatitis without necrosis or infection, unspecified; J96.01 Acute respiratory failure with hypoxia; N12 Tubulo-interstitial nephritis, not specified as acute or chronic; K56.7 Ileus, unspecified; I85.10 Secondary esophageal varices without bleeding; Z66 Do not resuscitate; K75.81 Nonalcoholic steatohepatitis (NASH); J44.9 Chronic obstructive pulmonary disease, unspecified; E11.9 Type 2 diabetes mellitus without complications; I25.10 Atherosclerotic heart disease of native coronary artery without angina pectoris; I48.2 Chronic atrial fibrillation; I50.9 Heart failure, unspecified; I11.0 Hypertensive heart disease with heart failure; E78.5 Hyperlipidemia, unspecified; E03.9 Hypothyroidism, unspecified; K59.00 Constipation, unspecified; R11.2 Nausea with vomiting, unspecified; R10.84 Generalized abdominal pain; Z99.81 Dependence on supplemental oxygen; Z87.891 Personal history of nicotine dependence
CPT/HCPCS: 36415; 71045; 71275; 74177; 76705; 80053; 81001; 82271; 82550; 82553; 82565; 82803; 83605; 83690; 83880; 84484; 85025; 85610; 85730; 87040; 87086; 87804; 93005; 93010; 94640; 96361; 96365; 96366; 96367; 96368; 96375; 99285; J1170; J1650; J2405; J2543; J3370; J3475; J7030; J7620; S0164